=== PATIENT | female | born 1955 | race Caucasian/White ===

== ENCOUNTER → 2017-04-15 09:03 | Day surgery (SDC) | payer MEDICARE, MEDICAID, SELFPAY ==
[2017-04-01 13:04] VITALS: BP 173/69; BMI 33.0
[2017-04-12 10:33] VITALS: BMI 33.0
[2017-04-15 09:38] LABS: Absolute Lymphocyte Count 2.26 X10^3/ul (0.83-4.51); Absolute Neutrophil Count 4.6 X10^3/uL (2.0-7.7); Basophil# 0.06 X10^3/uL; Basophil% 0.8 % (0-1); Eosinophil# 0.22 X10^3/uL; Eosinophils% 2.9 % (0-5); Hematocrit 35.3 % (37-47); Hemoglobin 11.7 g/dl (12.0-15.0); Lymphocyte # 2.26 X10^3/ul (4.0); Lymphocyte % 29.7 % (19-41); Mean Corp Hgb Conc 33.1 g/gl (32-36); Mean Corpuscular Hgb 28.6 pg (27.0-32.0); Mean Corpuscular Volume 86.3 fL (81-99); Monocyte# 0.49 X10^3/uL; Monocyte% 6.4 % (0-10); Neutrophil # 4.56 X10^3/uL (2.7-7.7); Neutrophil % 59.9 % (47-70); Platelet Count 301 K/mm3 (150-450); RBC Distribution Width CV 15.7 % (11.6-14.6); Red Blood Count 4.09 M/mm3 (4.2-5.4); White Blood Count 7.6 K/mm3 (4.4-11.0)
[2017-04-15 09:45] LABS: POSITIVE COUNT NO; POSITIVE DIFFERENTIAL NO; POSITIVE MORPHOLOGY NO
[2017-04-15 10:07] LABS: Anion Gap 13 (5-15); BUN 77 mg/dL (7-18); Calcium,Total 8.8 mg/dL (8.5-10.1); Chloride 94 mmol/L (98-107); Creatinine, Serum 7.03 mg/dL (0.55-1.02); EST Glomerular Filtration Rate 6 mL/min (>60); Est Glom Filt Rate - Afr Amer 8 mL/min (>60); Estimated Creatinine Clearance 6.56 ml/min; Glucose 128 mg/dL (74-106); Potassium 5.1 mmol/L (3.5-5.1); Sodium Level 134 mmol/L (136-145)
--- NOTE | 2017-04-15 11:31 | PCM.OPRPT ---
Problem List (1) Problem with dialysis access Status: Acute Qualifiers: Encounter type: subsequent encounter Qualified Code(s): T82.898D - Other specified complication of vascular prosthetic devices, implants and grafts, subsequent encounter Report of Operation Date of Procedure: 04/15/17 Pre-Operative Diagnosis: Problem left left forearm radiocephalic hemodialysis dialysis access Post-Operative Diagnosis: High-grade proximal fistula venous stenosis adjacent to the arterial anastomosis at the wrist Surgery/Procedure Performed:: Upper extremity fistulogram with 5 x 2 conquest and 6 x 2 conquest and 5 x 60 mm Lutonix angioplasty with drug coated balloon therapy Description of Surgical Findings:: Amount and informed consent was obtained. 61-year-old female was taken to the special procedures lab placed on the table she received 50 mcg of fentanyl 1 mg of Versed after informed consent was obtained. Left upper extremity sterilely prepped draped. Ultrasound was used to identify the cephalic vein in the proximal forearm. Under ultrasound guidance 2% lidocaine was instilled. Micropuncture needle was inserted retrograde flow. Micropuncture wire inserted. 6 [place] procedure was inserted using 035 angled Glidewire and a gentle glide cath [place] was gained the radial artery proximal to the fistula. Using Isovue Triplett Gram stain of the left forearm and upper extremity. This demonstrated high-grade 80% venous stenosis just distal to the arterial anastomosis. So an 035 Magic wire was inserted through the glide cath initially 5 x 2 conquest balloon was placed and then a 6 x 2 conquest balloon and then I reinserted 5 x 2 conquest balloon. Angioplasty was repetitively form performed until I felt that I had the lesion in question dilated. Then because the patient had just been here for treatment January 2017 I elected to pursue drug-coated balloon therapy. A 5 x 60 mm Lutonix drug-coated balloon was placed. This was insufflated to 6 humaira of pressure and held for 2 minutes. That balloon was then removed and a 4 [place] glide cath was reinserted final Triplett Gram stain now demonstrated dramatic improvement in flow and resolution of the area of proximal venous stenosis. Balloons were removed catheters removed. Sheath was removed U suture of 4-0 nylon was placed. Patient had good pulsatile flow with a palpable thrill blood loss was minimal no apparent complication. Impression High-grade 80% venous stenosis in the proximal portion of the fistula close to the arterial anastomosis. Subsequent to angioplasty and drug-coated balloon therapy there is resolution of the venous stenosis with good forearm and distal upper arm outflow. Jose Painting M.D., F.A.C.S. Type of Anesthesia:: IV Sedation
== END ==
PROVIDERS: Physician Assistant; Family Provider Family Medicine; PCP Family Medicine; Visit Provider Surgery
DX: T82.49XA Other complication of vascular dialysis catheter, initial encounter (principal); I12.9 Hypertensive chronic kidney disease with stage 1 through stage 4 chronic kidney disease, or unspecified chronic kidney disease; N18.9 Chronic kidney disease, unspecified; E66.9 Obesity, unspecified; G47.33 Obstructive sleep apnea (adult) (pediatric); E78.5 Hyperlipidemia, unspecified; I25.10 Atherosclerotic heart disease of native coronary artery without angina pectoris; I73.9 Peripheral vascular disease, unspecified; D50.9 Iron deficiency anemia, unspecified; E11.40 Type 2 diabetes mellitus with diabetic neuropathy, unspecified; Z68.33 Body mass index [BMI] 33.0-33.9, adult; Z79.4 Long term (current) use of insulin; Z79.899 Other long term (current) drug therapy; Z99.2 Dependence on renal dialysis; Z95.5 Presence of coronary angioplasty implant and graft
CPT/HCPCS: 36415; 36902; 76937; 80048; 85025; 99152; 99153; C1725; Q9967; C1769; J3490

== ENCOUNTER → 2017-05-21 18:43 | Outpatient (CLI) | payer MEDICARE, MEDICAID, SELFPAY ==
[2017-05-21 21:34] LABS: M R Staph aureus DNA By PCR Negative (Negative); Probe Check PASS; Specimen Processing Control PASS
== END ==
PROVIDERS: Family Provider Family Medicine; PCP Family Medicine; Visit Provider Ophthalmology
DX: Z22.321 Carrier or suspected carrier of Methicillin susceptible Staphylococcus aureus (principal)
CPT/HCPCS: 87641

== ENCOUNTER → 2017-07-05 08:41 | Outpatient (CLI) | payer MEDICARE, MEDICAID, SELFPAY ==
[2017-07-05 10:26] LABS: Hematocrit 31.7 % (37-47); Hemoglobin 10.1 g/dl (12.0-15.0); Mean Corp Hgb Conc 31.9 g/gl (32-36); Mean Corpuscular Hgb 30.4 pg (27.0-32.0); Mean Corpuscular Volume 95.5 fL (81-99); Mean Platelet Vol. 8.3 fl (6.2-12.0); Platelet Count 341 K/mm3 (150-450); RBC Distribution Width SD 55.2 fl (35.1-43.9); Red Blood Count 3.32 M/mm3 (4.2-5.4); White Blood Count 7.6 K/mm3 (4.4-11.0)
[2017-07-05 10:28] LABS: Scan Indicated on CBC? Y/N NO
[2017-07-05 12:09] LABS: Anion Gap 10 (5-15); BUN 55 mg/dL (7-18); Calcium,Total 8.9 mg/dL (8.5-10.1); Chloride 98 mmol/L (98-107); Cholesterol 270 mg/dL (200); Creatinine, Serum 6.85 mg/dL (0.55-1.02); EST Glomerular Filtration Rate 7 mL/min (>60); Est Glom Filt Rate - Afr Amer 8 mL/min (>60); Glucose 94 mg/dL (74-106); High Density Lipoprotein 53 mg/dL; Potassium 4.8 mmol/L (3.5-5.1); Sodium Level 137 mmol/L (136-145); Triglycerides 140 mg/dL; Very Low Density Lipoprotein 28 mg/dL (5-40); Vitamin D,25 Hydroxy 25.5 ng/mL (29.95-100.01)
[2017-07-05 12:19] LABS: Hemoglobin A1c 6.4 % (4.2-6.3)
== END ==
PROVIDERS: Family Provider Family Medicine; PCP Family Medicine; Visit Provider Family Medicine
DX: I10 Essential (primary) hypertension (principal); E78.5 Hyperlipidemia, unspecified; E11.65 Type 2 diabetes mellitus with hyperglycemia; E55.9 Vitamin D deficiency, unspecified
CPT/HCPCS: 36415; 80048; 80061; 82306; 83036; 85027

== ENCOUNTER → 2017-10-18 10:05 | Outpatient (CLI) | payer MEDICARE, MEDICAID, SELFPAY ==
[2017-09-25 09:27] LABS: Hematocrit 33.4 % (37-47); Hemoglobin 10.2 g/dl (12.0-15.0); Mean Corp Hgb Conc 30.5 g/gl (32-36); Mean Corpuscular Hgb 29.7 pg (27.0-32.0); Mean Corpuscular Volume 97.1 fL (81-99); Mean Platelet Vol. 8.7 fl (6.2-12.0); Platelet Count 309 K/mm3 (150-450); RBC Distribution Width CV 17.8 % (11.6-14.6); RBC Distribution Width SD 61.6 fl (35.1-43.9); Red Blood Count 3.44 M/mm3 (4.2-5.4); Scan Indicated on CBC? Y/N NO; White Blood Count 6.5 K/mm3 (4.4-11.0)
[2017-09-25 09:41] LABS: Anion Gap 8 (5-15); BUN 64 mg/dL (7-18); BUN/Creat Ratio 7.1 RATIO (10-20); Calcium,Total 8.6 mg/dL (8.5-10.1); Chloride 101 mmol/L (98-107); Creatinine, Serum 9.04 mg/dL (0.55-1.02); EST Glomerular Filtration Rate 5 mL/min (>60); Est Glom Filt Rate - Afr Amer 6 mL/min (>60); Glucose 101 mg/dL (74-106); Potassium 5.6 mmol/L (3.5-5.1); Sodium Level 135 mmol/L (136-145)
[2017-09-25 10:04] VITALS: BP 165/69; PULSE 65; RESP 16; TEMP 36.2; O2SAT 96; BMI 39.3
== END ==
PROVIDERS: Family Provider Family Medicine; PCP Family Medicine; Visit Provider Surgery
DX: Z01.818 Encounter for other preprocedural examination (principal)
CPT/HCPCS: 80048; 85027; 93005

== ENCOUNTER 2018-02-28 17:25 | Emergency (ER) | payer MEDICARE, MEDICAID, SELFPAY ==
[2018-02-28 13:49] VITALS: BMI 33.0
[2018-02-28 17:27] VITALS: BP 167/92; PULSE 81; RESP 16; TEMP 36.6; O2SAT 93; BMI 38.4
[2018-02-28 17:46] VITALS: BP 174/70; PULSE 81; RESP 18; TEMP 36.4; O2SAT 96
--- NOTE | 2018-02-28 17:59 | EKG12_ITS ---
Test Reason : WEAKNESS Blood Pressure : / mmHG Vent. Rate : 077 BPM Atrial Rate : 077 BPM P-R Int : 174 ms QRS Dur : 090 ms QT Int : 402 ms P-R-T Axes : 058 054 180 degrees QTc Int : 454 ms Normal sinus rhythm Septal infarct , age undetermined ST & T wave abnormality, consider inferolateral ischemia Abnormal ECG Confirmed by ABBY MOORE, EDIS ([id number]), index editor RAMON WHELAN ([id number]) on 03/04/2018 8:50:20 AM Referred By: Maribel Webb Confirmed By:EDIS MORA MD
--- NOTE | 2018-02-28 18:02 | ED.DCSUM_ITS ---
- ER Visit Summary Date of Service: 02/28/18 Chief Complaint: Generalized weakness History of Present Illness: The patient is a 62 F 3 of end-stage renal disease dialysis. CAD, [place] with prior triple bypass. Insulin dependent diabetes and hypertension. He states she just has not felt well for last 2 weeks and has missed 5 of her last 6 dialysis treatments. Did get dialyzed today. Believes is a full run. She had an elevated potassium and the development coordinator was concerned that she may have a bacterial respiratory infection or some the need to be treated with antibiotics and wanted to be seen in the ER. She has had a cough is been nonproductive. Chills without a fever. Generally weak. She denies any dysuria. She still does make urine. Denies being cloudy or bloody. She denies any abdominal pain. No melena. Physical Examination: Well-appearing female. No acute distress. Vital signs are stable. Initial blood pressure 167/92. Pulse ox 90% on room air no signs of hypoxia. She does not look septic or toxic. She is in no distress. HEENT exam mild dry mucous membranes. Posterior pharynx unremarkable. Neck nontender no lymphadenopathy. Lungs dry cough but no rales, rhonchi or wheezing. Equal symmetrical. Heart regular rhythm rate about 80 no murmur. Chest nontender. Abdomen soft nontender. Normal bowel sounds no peritoneal signs. Patient moving all 4 extremities. Is a partial reputation of her right foot. Neurologically she is awake alert with no focal motor deficits. She is answering questions and following commands. Test Results: Two-view chest x-ray shows shows no acute abnormality read both by myself and the radiologist. She has had a prior sternotomy. CBC shows white count of 5. Hemoglobin 9.8 which is her baseline around 10. Electrolytes unremarkable potassium 3.5 earlier today was 6.1 prior to dialysis. Gap is 16. Creatinine 7.4 which is her baseline with known chronic renal disease Emergency Department Course and Treatment: Treated with half a liter normal saline due to clinical dehydration. At 1950 patient is doing well on repeat exam.. Comfortable being discharged home. We will follow-up with her dialysis on Saturday. Treatment Plan: Up with your doctor. Return if worse. Disposition: dc Impression: Acute cough secondary to viral URI Acute generalized weakness Acute hyperkalemia resolved post dialysis treatment today History of chronic end-stage renal disease and dialysis. History of CAD with prior triple bypass This note was generated with [employer] dictation software. It may contain incorrect words, spelling, and punctuation that were not noted in review of the chart prior to signing ED Disposition - Plan for ED Patient: Chief Complaint: Weakness Referrals: Dandre Casas MD [Primary Care Provider] -
--- NOTE | 2018-02-28 18:22 | RAD_ITS ---
STUDY: X-RAY CHEST REASON FOR EXAM: Female, 62 years old. Dialysis patient. Weakness. Diarrhea. TECHNIQUE: Single AP portable view of the chest. COMPARISON: 12/17/2016. FINDINGS: Moderate lung volumes. No significant congestion, edema, infiltrates or effusions. Sternal cerclage wires and vascular clips are present from a prior sternotomy and coronary artery bypass graft procedure (CABG). Mild cardiomegaly. Normal mediastinum and haley. Normal visualized pulmonary arteries. Normal visualized aortic arch and descending thoracic aorta. Normal visualized thoracic spine. Normal visualized ribs, clavicles, and shoulders. There is no demonstrated abnormality of the visualized soft tissue structures of the upper abdomen. RAD/Chest PA and Lateral IMPRESSION: No significant acute chest disease. Electronically Signed: Vasiliy Smiley MD at 18:48 EST , Service support ,
[2018-02-28 18:28] VITALS: TEMP 36.4
[2018-02-28 18:34] VITALS: BP 170/66; PULSE 77; RESP 17; TEMP 36.4; O2SAT 94
[2018-02-28 18:36] LABS: Absolute Lymphocyte Count 1.17 X10^3/ul (0.83-4.51); Absolute Neutrophil Count 3.7 X10^3/uL (2.0-7.7); Basophil# 0.01 X10^3/uL; Basophil% 0.2 % (0-1); Eosinophil# 0.06 X10^3/uL; Eosinophils% 1.1 % (0-5); Hematocrit 30.1 % (37-47); Hemoglobin 9.8 g/dl (12.0-15.0); Lymphocyte # 1.17 X10^3/ul (4.0); Lymphocyte % 21.4 % (19-41); Mean Corp Hgb Conc 32.6 g/gl (32-36); Mean Platelet Vol. 8.6 fl (6.2-12.0); Monocyte# 0.49 X10^3/uL; Neutrophil # 3.69 X10^3/uL (2.7-7.7); Neutrophil % 67.6 % (47-70); Platelet Count 233 K/mm3 (150-450); RBC Distribution Width CV 15.5 % (11.6-14.6); RBC Distribution Width SD 52.5 fl (35.1-43.9); Red Blood Count 3.27 M/mm3 (4.2-5.4); White Blood Count 5.5 K/mm3 (4.4-11.0)
[2018-02-28 18:37] LABS: Anion Gap 16 (5-15); BUN 58 mg/dL (7-18); BUN/Creat Ratio 7.8 RATIO (10-20); Calcium,Total 7.5 mg/dL (8.5-10.1); Chloride 99 mmol/L (98-107); EST Glomerular Filtration Rate 6 mL/min (>60); Est Glom Filt Rate - Afr Amer 7 mL/min (>60); Estimated Creatinine Clearance 6.14 ml/min; Glucose 105 mg/dL (74-106); Potassium 3.5 mmol/L (3.5-5.1); Sodium Level 138 mmol/L (136-145)
[2018-02-28 18:39] LABS: Creatinine, Serum 7.42 mg/dL (0.55-1.02); POSITIVE COUNT NO; POSITIVE DIFFERENTIAL NO; POSITIVE MORPHOLOGY NO
--- NOTE | 2018-02-28 18:40 | ED.RN ---
lab called with critical lab results. Creatine 7.43. Dr. Whittington made aware. no new orders at this time
--- NOTE | 2018-02-28 20:02 | ED.DEP ---
ED Disposition - Plan for ED Patient: Disposition: Home or Assisted Living Chief Complaint: Weakness Instructions: ED Weakness [facility] Referrals: Dandre Casas MD [Primary Care Provider] - 3-5 Days if not improving Additional Instructions: Your labs today are your baseline. Your potassium is now 3.5 prior to dialysis today it was 6.1. Follow-up with your doctor as needed next week. Return if feeling worse.
[2018-02-28 20:07] VITALS: BP 165/69; PULSE 76; RESP 18; O2SAT 97
== END 2018-02-28 20:09 | disposition home or self-care (01) ==
PROVIDERS: Emergency Provider Emergency Medicine; Family Provider Family Medicine; PCP Family Medicine
DX: J06.9 Acute upper respiratory infection, unspecified (principal); R53.1 Weakness; E87.5 Hyperkalemia; R05 Cough; I25.10 Atherosclerotic heart disease of native coronary artery without angina pectoris; I12.0 Hypertensive chronic kidney disease with stage 5 chronic kidney disease or end stage renal disease; E11.22 Type 2 diabetes mellitus with diabetic chronic kidney disease; N18.6 End stage renal disease; Z99.2 Dependence on renal dialysis; I25.2 Old myocardial infarction; Z95.1 Presence of aortocoronary bypass graft; Z79.4 Long term (current) use of insulin; Z79.899 Other long term (current) drug therapy
CPT/HCPCS: 71046; 80048; 85025; 93005; 96360; 96361; 99284; J7040; A4216

== ENCOUNTER → 2018-03-10 14:31 | Outpatient (CLI) | payer MEDICARE, MEDICAID, SELFPAY ==
[2018-02-28 17:27] VITALS: BMI 38.4
== END ==
PROVIDERS: Family Provider Family Medicine; PCP Family Medicine; Referring Provider Internal Medicine Nephrology; Visit Provider Internal Medicine Nephrology
DX: R19.7 Diarrhea, unspecified (principal)
CPT/HCPCS: 87493

== ENCOUNTER → 2018-04-10 14:08 | Outpatient (CLI) | payer MEDICARE, MEDICAID, SELFPAY ==
--- NOTE | 2018-04-10 14:13 | CT_ITS ---
STUDY: CT RIGHT KNEE WITHOUT CONTRAST REASON FOR EXAM: Female, 62 years old. Fibular fracture. RADIATION DOSAGE (If Supplied By Facility): CTDIvol = ( ) mGy, DLP = ( ) mGycm TECHNIQUE: Transaxial CT imaging of the knee was performed. Coronal and sagittal images were reformatted. Individualized dose optimization techniques were used for this CT. COMPARISON: None. FINDINGS: Early cortical spurring as well as mild subarticular sclerosis of the medial femoral condyle and medial tibial plateau. There is moderate narrowing of the articular joint space of the medial knee compartment. Borderline cortical spurring of the lateral femoral condyle are normal lateral tibial plateau. There is preservation of the articular joint space of the lateral knee compartment. There is comminuted oblique fracture at the neck of the fibula with minimal anteromedial displacement and mild anteromedial angulation of the distal fracture fragment. Stable proximal tibiofibular articulation. There is mild cortical spurring at the patellar insertions of the quadriceps and patellar tendons, as well as early lateral periarticular spurring. There is a small joint effusion. 4 x 2 x 1.4 cm fluid density in the popliteal fossa consistent with a Leon's cyst. The quadriceps tendon is grossly normal. The patellar tendon is grossly normal. Normal Hoffa's fat pad. Atherosclerotic vascular calcifications are present. There is soft tissue stranding/swelling in the lateral subcutaneous soft tissues of the calf and visualized mid lower leg, extending anteriorly and posteriorly. A cluster of small calcifications are also seen in the anterior subcutaneous tissues at the mid lower leg CT/Extremity Lower without Contra IMPRESSION: 1. Minimally displaced and angulated comminuted fracture of the neck of the right fibula, as described. There is subcutaneous soft tissue stranding/edema of the calf/mid lower leg. 2. Degenerative changes of the knee, as noted, with narrowing most prominent in the medial femorotibial compartment. 3. Small joint effusion present. A Leon's cyst is also seen in the popliteal fossa. 4. Atherosclerotic vascular calcifications present. Electronically Signed: Andre Sexton MD at 19:13 EST , Service support ,
== END ==
PROVIDERS: Family Provider Family Medicine; PCP Family Medicine; Referring Provider Orthopaedic Surgery; Visit Provider Orthopaedic Surgery
DX: S82.831A Other fracture of upper and lower end of right fibula, initial encounter for closed fracture (principal)
CPT/HCPCS: 73700

== ENCOUNTER → 2018-05-26 07:49 | Outpatient (CLI) | payer MEDICARE, MEDICAID, SELFPAY ==
[2018-05-26 08:07] LABS: Potassium 5.8 mmol/L (3.5-5.1)
== END ==
PROVIDERS: Family Provider Family Medicine; PCP Family Medicine; Referring Provider Internal Medicine Nephrology; Visit Provider Internal Medicine Nephrology
DX: E87.5 Hyperkalemia (principal)
CPT/HCPCS: 84132

== ENCOUNTER → 2018-09-04 | Outpatient (CLI) | payer MEDICARE, MEDICAID, SELFPAY ==
[2018-09-04 14:35] LABS: Cholesterol 258 mg/dL (200); Glucose 67 mg/dL (74-106); High Density Lipoprotein 43 mg/dL; Triglycerides 125 mg/dL; Very Low Density Lipoprotein 25 mg/dL (5-40)
== END | disposition home or self-care (01) ==
LOC: MFPLAB 11:57
PROVIDERS: Family Provider Family Medicine; PCP Family Medicine; Visit Provider Family Medicine
DX: E78.5 Hyperlipidemia, unspecified (principal); E11.9 Type 2 diabetes mellitus without complications
CPT/HCPCS: 36415; 80061; 82947; 83036

== ENCOUNTER → 2018-12-12 | Outpatient (CLI) | payer SELFPAY | END | disposition home or self-care (01) | LOC: MTLAB 12:14 | PROVIDERS: Family Provider Family Medicine; PCP Family Medicine; Referring Provider Internal Medicine Nephrology; Visit Provider Internal Medicine Nephrology | DX: T82.898A Other specified complication of vascular prosthetic devices, implants and grafts, initial encounter (principal) | CPT/HCPCS: 87077; 87081 ==

== ENCOUNTER 2019-03-26 09:00 | Outpatient (RCR) | payer MEDICARE, MEDICAID, SELFPAY ==
[2019-03-19 13:39] VITALS: BP 158/56; PULSE 79; RESP 18; TEMP 36.8; BMI 38.4
--- NOTE | 2019-03-19 14:25 | WC ---
pt has several scabbed areas on bilat lower legs noted. 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
--- NOTE | 2019-03-19 14:57 | PCM.WC.HP ---
(1) Diabetic foot ulcer associated with type 2 diabetes mellitus Status: Acute Current Visit: Yes Qualifiers: Diabetic foot ulcer location: midfoot Laterality: left Non-pressure ulcer stage: with other severity Qualified Code(s): E11.621 - Type 2 diabetes mellitus with foot ulcer; L97.428 - Non-pressure chronic ulcer of left heel and midfoot with other specified severity Code(s): E11.621 - Type 2 diabetes mellitus with foot ulcer; L97.509 - Non-pressure chronic ulcer of other part of unspecified foot with unspecified severity Comment: x 2 inferior and superior plantar surface, unstageable d/t eschar (2) CAD (coronary artery disease) Status: Chronic Current Visit: No Code(s): I25.10 - Atherosclerotic heart disease of [place] coronary artery without angina pectoris (3) Diabetes mellitus, type II Status: Chronic Current Visit: Yes Code(s): E11.9 - Type 2 diabetes mellitus without complications Comment: uncontrolled (4) Diabetic neuropathy Status: Chronic Current Visit: Yes Code(s): E11.40 - Type 2 diabetes mellitus with diabetic neuropathy, unspecified (5) Hyperlipidemia Status: Chronic Current Visit: No Code(s): E78.5 - Hyperlipidemia, unspecified (6) Hypertension Status: Chronic Current Visit: Yes Code(s): I10 - Essential (primary) hypertension (7) Iron deficiency Status: Chronic Current Visit: Yes Code(s): E61.1 - Iron deficiency (8) Non-healing wound Status: Chronic Current Visit: Yes Code(s): KCV1069 - (9) NGUYEN (obstructive sleep apnea) Status: Chronic Current Visit: No Code(s): G47.33 - Obstructive sleep apnea (adult) (pediatric) (10) Obesity (BMI 30.0-34.9) Status: Chronic Current Visit: No Code(s): E66.9 - Obesity, unspecified (11) PVD (peripheral vascular disease) Status: Chronic Current Visit: Yes Code(s): I73.9 - Peripheral vascular disease, unspecified (12) S/P CABG x 3 Status: Chronic Current Visit: No Code(s): Z95.1 - Presence of aortocoronary bypass graft Comment: June of 2014 (13) Status post transmetatarsal amputation of right foot Status: Chronic Current Visit: No Code(s): Z89.431 - Acquired absence of right foot (14) Stented coronary artery Status: Chronic Current Visit: No (15) Malnutrition Status: Acute Current Visit: Yes Code(s): E46 - Unspecified protein-calorie malnutrition History of Present Illness Date of Service: 03/19/19 Chief Complaint: 63-year-old white female here for diabetic ulcers to left foot x1 month. History of Wound: This is a 63-year-old white female who presents to the wound healing center today with complaint of nonhealing diabetic foot ulcers on her left plantar surface for the past month or so. She has a past medical history significant for end-stage CKD on dialysis 3 times a week, uncontrolled type 2 diabetes mellitus with long-term insulin use, obesity, PVD, hypertension, hyperlipidemia, malnutrition, and history of amputation of the right transmetatarsal. The patient states that the nurse at the dialysis center evaluated her due to complaints of foot pain and had her follow-up with her primary care. She states that her primary care provider then started her on Levaquin and sent her to the wound healing center for evaluation. She does state that she has neuropathy and does not have the best sensation to her feet, however she states that there has been an increase in pain. She has not been utilizing any sort of dressing changes. She states that she thinks the wound has been present for at least a month. She states that she does not often wear shoes and sometimes just wear socks, even when going outside of her house. She did not wear shoes to [facility] office visit. Denies any offloading measures or the use of diabetic shoes. Does state that she recently took a part-time job working at [employer] where she is not allowed to wear any offloading shoes. States that she typically only eats 1 meal per day due to not being able to afford any further meals. Denies any systemic signs of infection such as fever, chills, nausea, vomiting, fatigue, or purulent drainage from the site. Does state that she has an out-of-town [employer] application consultant who has not evaluated her in over 6 months. Denies any other concerns at this time. All other systems reviewed and negative with exception of those listed above. Past Medical History Past Medical History: Chronic Problems (Last Updated 09/04/17 @ 08:58 by Vicki Turner) Obesity (BMI 30.0-34.9) (Chronic) NGUYEN (obstructive sleep apnea) (Chronic) Diabetes mellitus, type II (Chronic) uncontrolled Hyperlipidemia (Chronic) Hypertension (Chronic) Stented coronary artery (Chronic) Diabetic neuropathy (Chronic) CAD (coronary artery disease) (Chronic) PVD (peripheral vascular disease) (Chronic) Non-healing wound (Chronic) Iron deficiency (Chronic) S/P CABG x 3 (Chronic) June of 2014 Status post transmetatarsal amputation of right foot (Chronic) Surgical History: coronary bypass surgery, tonsillectomy, - Allergies/Adverse Reactions: Allergies iodine Allergy (Unknown, Verified 02/28/18 17:29) Unknown latex Allergy (Verified 02/28/18 17:29) Unknown Penicillins Allergy (Verified 02/28/18 17:29) Unknown shellfish derived Allergy (Verified 02/28/18 17:29) Unknown Home Medications: Ambulatory Orders Medication Instructions Recorded Insulin Detemir [Levemir FlexPen] 26 units SC DAILY 09/25/13 Amlodipine [Norvasc] 10 mg PO DAILY 09/05/14 Calcitriol [Rocaltrol] 0.25 mcg PO BID 11/20/16 Cilostazol [Pletal] 100 mg PO BIDAC 11/20/16 Escitalopram Oxalate [Lexapro] 10 mg PO DAILY 11/20/16 Furosemide [Lasix] 40 mg PO BID 11/20/16 Iron Polysaccharide Complex 150 mg PO DAILYCM 11/20/16 [Ferrex 150] B complex with C 20-folic acid 1 1 cap PO MOWEFR 02/27/17 mg capsule gabapentin 300 mg capsule 300 mg PO BID cap 02/27/17 losartan 100 mg tablet 100 mg PO QDAY 02/27/17 Levofloxacin 500 mg PO QODAY 03/19/19 - Family History Maternal Stroke Paternal No pertinent history Smoking Status: Never smoker Review of Systems Constitutional: Denies: Chills, Fever, Weight Change Eyes: Denies: Pain, Vision Change HEENT: Denies: Difficulty Hearing, Difficulty Swallowing, Sinus Congestion Cardiovascular: Denies: Chest Pain, Palpitations Respiratory: Denies: Cough, Shortness of Breath Gastrointestinal: Denies: Diarrhea, Nausea, Vomiting Genitourinary: Denies: Dysuria, Hematuria Skin: Reports: Wounds - see HPI Endocrine: Denies: Heat/ Cold Intolerance, Polydipsia, Polyuria Hematologic/ Lymphatic: Denies: Easy Bruising, Easy Bleeding - Physical Exam Vital Signs Temp Pulse Resp BP 98.2 F 79 18 158/56 H 03/19/19 13:39 03/19/19 13:39 03/19/19 13:39 03/19/19 13:39 General: Alert, Oriented x3, Cooperative, No apparent distress HEENT: Atraumatic Oral: Moist Mucosa Neck: Supple, No JVD Lungs: Clear to auscultation, Normal air movement, No rhonchi, No wheeze, No rales Cardiovascular: Regular rate, Regular Rhythm, Normal S1, Normal S2, No murmurs Abdomen: Soft, Non Tender, Obese Extremities: No clubbing, No cyanosis, Diminished Peripheral Pulses - Palpable dorsal pedis pulses, diminished bilaterally, Edema - +1 bilateral lower extremity edema, - - Chronic venous changes present bilateral lower extremities with multiple excoriations in various stages of healing, right partial foot amputation and left toe amputations Skin: Ulcer/ Wound - Diabetic foot ulcer to the plantar midfoot superior and inferior ulcerations with large amount of eschar, surrounding edges do show granular tissue, sites are tender and painful Wound Measurements and Assessment WC - Nurse 1 - General Ulcer Measurement Start: 03/19/19 13:37 Freq: Status: Active Protocol: Activity Type Activity Date Activity User E-Sign Co-Sign Detail Recorded Client Recorded Date Recorded By Document 03/19/19 13:39 RB [id number] 03/19/19 14:00 RB 03/19/19 13:39 Wound Center Nurse 1 [Ulcer Assessment] 4. L plantar foot inferior -Combined with other wound No -Current Size (cm) - Length 0.7 -Current Size (cm) - Width 1.8 -Current Size (cm) - Depth 0.4 -Total Square Cm 1.26 -Tunneling No -Undermining/Tunneling No -Circular Undermining No -Exudate Amt Small -Exudate Type Serosanguineous -Wound Margin Thickened -Granulation Amt Small (1-33%) -Granulation Quality Pale,[place] -Slough/Fibrin Yes -Necrosis Amt Medium (34-66%) -Necrotic Tissue Type Adherent Slough -Structure Exposed N/A -Texture (Georgina-wound Skin Appearance) Callus -Moisture (Georgina-wound Skin Appearance Assessed ) -Color (Georgina-wound Skin Appearance) Assessed -Temperature (Georgina-wound Skin No Abnormality Appearance) (Pt Warm) -Tenderness on Palpation (Georgina-wound No Skin Appearance) -Ulcer Cleansing Wound Cleanser -Foul Odor after Cleansing No -Anesthetic Used 5% Lidocaine Gel 3. L plantar foot superior -Combined with other wound No -Current Size (cm) - Length 1.3 -Current Size (cm) - Width 1.4 -Current Size (cm) - Depth 0.2 -Total Square Cm 1.82 -Photo Taken Yes -Tunneling No -Undermining/Tunneling No -Circular Undermining No -Exudate Amt Medium -Exudate Type Serosanguineous -Wound Margin Thickened -Granulation Amt None Present (0 %) -Slough/Fibrin Yes -Necrosis Amt Large (67-100%) -Necrotic Tissue Type Eschar -Structure Exposed N/A -Texture (Georgina-wound Skin Appearance) Callus -Moisture (Georgina-wound Skin Appearance Dry/Scaly ) -Color (Georgina-wound Skin Appearance) Assessed -Temperature (Georgina-wound Skin No Abnormality Appearance) (Pt Warm) -Tenderness on Palpation (Georgina-wound No Skin Appearance) -Ulcer Cleansing Wound Cleanser -Foul Odor after Cleansing No -Anesthetic Used 5% Lidocaine Gel [Edema Assessment] -Lower Limb Edema Present Yes -Right Calf (cm) 40.5 -Right Ankle (cm) 28 -Left Calf (cm) 42 -Left Ankle (cm) 29 WC - Nurse 2 - General Ulcer CM Notes Start: 03/19/19 13:37 Freq: Status: Active Protocol: Activity Type Activity Date Activity User E-Sign Co-Sign Detail Recorded Client Recorded Date Recorded By Document 03/19/19 14:14 MW [id number] 03/19/19 14:32 MW 03/19/19 14:14 Wound Center Nurse 2 [Procedure/Treatment] 4. L plantar foot inferior -Time 14:17 -Correct Patient Yes -Correct Side, Site, Position Yes -Correct Procedure Yes -Procedure Performed Yes -Type of Procedure Debridement -Clinical Debridement Subcutaneous -Post Debridement Size (cm) - Length 1.0 -Post Debridement Size (cm) - Width 2.5 -Post Debridement Size (cm) - Depth 0.3 -Total Square Cm 2.50 -Wound/Ulcer Outcome Not Healed -Ulcer Cleansing Rinsed/ Irrigated with Saline -Foul Odor after Cleansing No -Bioengineered Tissue No -Bleeding Controlled with Pressure -Offloading No -Treatment Response Procedure Tolerated Well 3. L plantar foot superior -Time 14:17 -Correct Patient Yes -Correct Side, Site, Position Yes -Correct Procedure Yes -Procedure Performed Yes -Type of Procedure Debridement -Clinical Debridement Subcutaneous -Post Debridement Size (cm) - Length 1.6 -Post Debridement Size (cm) - Width 2.0 -Post Debridement Size (cm) - Depth 0.2 -Total Square Cm 3.20 -Wound/Ulcer Outcome Not Healed -Ulcer Cleansing Rinsed/ Irrigated with Saline -Foul Odor after Cleansing No -Bioengineered Tissue No -Bleeding Controlled with Pressure -Offloading No -Treatment Response Procedure Tolerated Well [See Physician Procedure note for Specifics] Pain Scale: 0-10 Numeric [Pain] -Is Patient Pain Free? Yes Musculoskeletal: No Muscle Wasting Neurological: Neuro grossly intact Psych/Mental Status: Normal Affect, Appropriate, Alert and oriented to time, place, person, mood and affect Debridement Note Post-Debridement Measurements/Treatment WC - Nurse 2 - General Ulcer CM Notes Start: 03/19/19 13:37 Freq: Status: Active Protocol: Activity Type Activity Date Activity User E-Sign Co-Sign Detail Recorded Client Recorded Date Recorded By Document 03/19/19 14:14 MW [id number] 03/19/19 14:32 MW 03/19/19 14:14 Wound Center Nurse 2 4. L plantar foot inferior -Time 14:17 -Correct Patient Yes -Correct Side, Site, Position Yes -Correct Procedure Yes -Procedure Performed Yes -Type of Procedure Debridement -Clinical Debridement Subcutaneous -Post Debridement Size (cm) - Length 1.0 -Post Debridement Size (cm) - Width 2.5 -Post Debridement Size (cm) - Depth 0.3 -Total Square Cm 2.50 -Wound/Ulcer Outcome Not Healed -Ulcer Cleansing Rinsed/ Irrigated with Saline -Foul Odor after Cleansing No -Bioengineered Tissue No -Bleeding Controlled with Pressure -Offloading No -Treatment Response Procedure Tolerated Well 3. L plantar foot superior -Time 14:17 -Correct Patient Yes -Correct Side, Site, Position Yes -Correct Procedure Yes -Procedure Performed Yes -Type of Procedure Debridement -Clinical Debridement Subcutaneous -Post Debridement Size (cm) - Length 1.6 -Post Debridement Size (cm) - Width 2.0 -Post Debridement Size (cm) - Depth 0.2 -Total Square Cm 3.20 -Wound/Ulcer Outcome Not Healed -Ulcer Cleansing Rinsed/ Irrigated with Saline -Foul Odor after Cleansing No -Bioengineered Tissue No -Bleeding Controlled with Pressure -Offloading No -Treatment Response Procedure Tolerated Well Pain Scale: 0-10 Numeric Is Patient Pain Free? Yes Wound debrided: Left superior and inferior diabetic foot ulcer Laterality: Left Type of Debridement: Excisional debridement Anesthesia Used: 5% Lidocaine Gel Depth: in the subcutaneous layer Percentage of wound debrided: 100 Instrument Used: 5mm curette Tissue Removed: slough and devitalized tissue Severity: Fat Layer Exposed Amount of bleeding with debridement: Mild Bleeding Controlled with: Pressure Patient tolerated procedure well Assessment/Plan Active Problems (Last Reviewed 09/04/17 @ 08:57 by Vicki Turner) Diabetic foot ulcer associated with type 2 diabetes mellitus (Acute) x 2 inferior and superior plantar surface, unstageable d/t eschar Malnutrition (Acute) Diabetes mellitus, type II (Chronic) uncontrolled Hypertension (Chronic) Diabetic neuropathy (Chronic) PVD (peripheral vascular disease) (Chronic) Non-healing wound (Chronic) Iron deficiency (Chronic) Assessment: See above diagnoses Plan: The patient was seen and examined at the wound center today and was updated on the plan of care. A subcutaneous debridement was performed today. The patient tolerated the procedure well. The patients wound care will consist of: Application of Santyl covered with gauze and postop shoe for offloading. Single layer Tubigrip's. X-ray ordered today to rule out injury to further tissue. Wound cultures were collected. Baseline bloodwork ordered. Vascular studies ordered. Glucerna ordered 3 times a day. Patient educated on the importance of diet on wound healing and instructed to increase protein and vitamin C intake. Patient verbalized understanding. Patient will follow up at wound healing center in one week or sooner if needed. Given the patient's current wounds and prior history, care will be transferred to [employer] application consultant Dr. Sylvester. Did personally discuss the case with oracle application consultant. Instructed patient on the importance of offloading and that if she is noncompliant, there is a risk for amputation, infection, or . Did instruct patient that she should not be standing on her feet for long periods of time. Patient has been advised to elevate lower extremities as much as possible. Elevation is to be implemented during daytime hours and legs are to be elevated to heart level, or higher, as much as possible. Prolonged idle sitting has been discouraged. Activity and ambulation has been encouraged. This note was generated with [employer] software. It may contain incorrect words, spelling, and punctuation that were not noted in checking the note before signing. Code Visit Office Visits / Consults: [id number] OV L4 Est [id number]: [id number] Nataliia subq tissue 20 sq cm/<
[2019-03-19 17:13] LABS: Absolute Lymphocyte Count 1.88 X10^3/uL (0.83-4.51); Absolute Neutrophil Count 3.9 X10^3/uL (2.0-7.7); Basophil# 0.04 X10^3/uL; Basophil% 0.6 % (0-1); Eosinophil# 0.11 X10^3/uL; Eosinophils% 1.6 % (0-5); Hematocrit 34.5 % (37-47); Hemoglobin 10.8 g/dL (12.0-15.0); Lymphocyte # 1.88 X10^3/ul (4.0); Lymphocyte % 28.1 % (19-41); Mean Corp Hgb Conc 31.3 g/dL (32-36); Mean Corpuscular Hgb 29.6 pg (27.0-32.0); Mean Corpuscular Volume 94.5 fL (81-99); Mean Platelet Vol. 9.2 fl (6.2-12.0); Monocyte# 0.69 X10^3/uL; Monocyte% 10.3 % (0-10); NRBC Flagged by Analyzer 0 % (0-5); Neutrophil # 3.92 X10^3/uL (2.7-7.7); Neutrophil % 58.5 % (47-70); Platelet Count 260 K/mm3 (150-450); RBC Distribution Width CV 16.9 % (11.6-14.6); RBC Distribution Width SD 58.9 fl (35.1-43.9); Red Blood Count 3.65 M/mm3 (4.2-5.4); White Blood Count 6.7 K/mm3 (4.4-11.0)
[2019-03-19 17:29] LABS: Erythrocyte Sedimentation Rate 116 mm/hr (0-30)
--- NOTE | 2019-03-19 17:40 | RAD_ITS ---
STUDY: X-RAY - LEFT FOOT CLINICAL: Female, 63 years old. left foot pain with ulcers TECHNIQUE: 3 view(s) of the foot. COMPARISON: None. FINDINGS: There is demineralization of the rear and midfoot bones. Normal visualized subtalar, talonavicular, calcaneocuboid, tarsal and tarsometatarsal articulations. There is demineralization of the metatarsi. There is degenerative arthrosis of the metatarsophalangeal joint of the hallux . Normal tibial and fibular sesamoid bones. Degenerative change and distal amputation of the great toe phalanx is noted. Second distal digit is amputated demineralized appearance of the second metatarsal head. Severe degenerative changes of the third and fifth digit are present with diffuse demineralization. Distal ankle and surrounding foot soft tissue edema is noted. RAD/Foot min 3 Views IMPRESSION: Diffuse demineralization and degenerative changes/amputation as above with diffuse distal foot soft tissue swelling. If high clinical suspicion of osteomyelitis recommend MRI imaging for definitive assessment. Electronically Signed: Ford Rahman DO at 9:18 EST , Service support ,
[2019-03-19 17:47] LABS: Hemoglobin A1c 6.8 % (4.2-6.3)
[2019-03-19 17:58] LABS: ALB/GLOB Ratio 0.7 RATIO (0.9-2.4); AST(SGOT) 28 U/L (15-37); Alanine Aminotransfer ALT/SGPT 24 U/L (13-56); Albumin, Serum 3.4 g/dL (3.2-5.0); Alkaline Phosphatase 113 U/L (45-117); Anion Gap 10 (5-15); BUN 45 mg/dL (7-18); BUN/Creat Ratio 7.4 RATIO (10-20); Calcium,Total 8.6 mg/dL (8.5-10.1); Chloride 93 mmol/L (98-107); Creatinine, Serum 6.06 mg/dL (0.55-1.02); EST Glomerular Filtration Rate 7 mL/min (>60); Est Glom Filt Rate - Afr Amer 9 mL/min (>60); Globulin 4.9 g/dL (2.2-4.2); Glucose 149 mg/dL (74-106); Potassium 4.4 mmol/L (3.5-5.1); Prealbumin 23.8 mg/dL (20.0-40.0); Protein, Total 8.3 g/dL (6.4-8.2); Sodium Level 136 mmol/L (136-145)
[2019-03-25 14:22] VITALS: BP 165/72; PULSE 79; RESP 18; TEMP 36.6; BMI 38.4
--- NOTE | 2019-03-25 14:30 | WC ---
dorsal foot w/ ^ redness. will update piano case and bench assembler and dr velasco.
--- NOTE | 2019-03-25 14:58 | PN.PCM_ITS ---
(1) Chronic ulcer of left foot with fat layer exposed Status: Chronic Code(s): L97.522 - Non-pressure chronic ulcer of other part of left foot with fat layer exposed (2) Type 2 diabetes mellitus with diabetic polyneuropathy Status: Chronic Code(s): E11.42 - Type 2 diabetes mellitus with diabetic polyneuropathy (3) Infection of left foot Status: Chronic Code(s): L08.9 - Local infection of the skin and subcutaneous tissue, unspecified (4) Other specified peripheral vascular diseases Status: Suspected Code(s): I73.89 - Other specified peripheral vascular diseases (5) Delayed wound healing Status: Chronic Code(s): T14.8XXD - Other injury of unspecified body region, subsequent encounter (6) Xerosis cutis Status: Chronic Code(s): L85.3 - Xerosis cutis (7) Walking difficulty due to ankle and foot Status: Chronic Code(s): R26.2 - Difficulty in walking, not elsewhere classified (8) Malnutrition Status: Chronic Code(s): E46 - Unspecified protein-calorie malnutrition (9) Obesity (BMI 30.0-34.9) Status: Chronic Code(s): E66.9 - Obesity, unspecified (10) Status post transmetatarsal amputation of right foot Status: Chronic Code(s): Z89.431 - Acquired absence of right foot (11) Localized edema Status: Chronic Code(s): R60.0 - Localized edema (12) Hammertoe of left foot Status: Chronic Code(s): M20.42 - Other hammer toe(s) (acquired), left foot Type of Wound Date of Service: 03/25/19 Chief Complaint: Left foot ulcer History of Wound: This is a 63-year-old white female who presents to the wound healing center today with complaint of nonhealing diabetic foot ulcers on her left plantar surface for over 1 month. She has a past medical history significant for end-stage CKD on dialysis 3 times a week, uncontrolled type 2 diabetes mellitus with long-term insulin use, obesity, PVD, hypertension, hyperlipidemia, malnutrition, and history of amputation of the right transmetatarsal. She has recently been on a course of Levaquin by her primary care physician. She was then further referred to the wound healing center. She does state that she has neuropathy and does not have the best sensation to her feet, however she states that there has been an increase in pain. She reports she is no longer working at [employer]. She admits she walks around [facility] only with padded socks in place he has these feel the most comfortable. Her pain is 4 out of 10. Progress of Wound: Stable - Physical Exam Vital Signs Temp Pulse Resp BP 97.8 F 79 18 165/72 H 03/25/19 14:22 03/25/19 14:22 03/25/19 14:22 03/25/19 14:22 General: Alert, Oriented x3, Cooperative, No apparent distress HEENT: Atraumatic Extremities: No cyanosis, Capillary Refill Less than 3 Seconds, No Calf Tenderness, Diminished Peripheral Pulses, Edema Skin: Ulcer/ Wound - No purulence, erythema, streaking, odor or probe to bone. There are 2 main ulcer sites the plantar hindfoot and heel of the left foot. Her adjacent skin is hairless and atrophic. There are no ulcers noted on the right foot only a callus is present to the distal transmetatarsal amputation site. The ulcer bed on the left foot are fibrous with very minimal granulation tissue. There is no maceration or melina necrosis noted Wound Measurements and Assessment WC - Nurse 1 - General Ulcer Measurement Start: 03/19/19 13:37 Freq: Status: Active Protocol: Activity Type Activity Date Activity User E-Sign Co-Sign Detail Recorded Client Recorded Date Recorded By Document 03/25/19 14:22 RB [id number] 03/25/19 14:30 RB 03/25/19 14:22 Wound Center Nurse 1 [Ulcer Assessment] #5 L plantar foot inferior -Combined with other wound No -Current Size (cm) - Length 0.8 -Current Size (cm) - Width 2 -Current Size (cm) - Depth 0.2 -Total Square Cm 1.6 -Photo Taken No -Epithelialization None Present -Tunneling No -Undermining/Tunneling No -Circular Undermining No -Exudate Amt Small -Exudate Type Serosanguineous -Wound Margin Distinct, Outline Attached -Granulation Amt None Present (0 %) -Slough/Fibrin Yes -Necrosis Amt Large (67-100%) -Necrotic Tissue Type Adherent Slough -Texture (Georgina-wound Skin Appearance) Assessed, Localized Edema ,Scarring -Moisture (Georgina-wound Skin Appearance Assessed ) -Color (Georgina-wound Skin Appearance) Assessed, Erythema -Temperature (Georgina-wound Skin No Abnormality Appearance) (Pt Warm) -Tenderness on Palpation (Georgina-wound No Skin Appearance) -Ulcer Cleansing Rinsed/ Irrigated with Saline -Foul Odor after Cleansing No -Anesthetic Used 4% Lidocaine Solution #4. L plantar foot superior -Combined with other wound No -Current Size (cm) - Length 1.1 -Current Size (cm) - Width 1.2 -Current Size (cm) - Depth 0.3 -Total Square Cm 1.32 -Photo Taken No -Epithelialization None Present -Tunneling No -Undermining/Tunneling No -Circular Undermining No -Exudate Amt Small -Exudate Type Serosanguineous -Wound Margin Distinct, Outline Attached -Granulation Amt None Present (0 %) -Slough/Fibrin Yes -Necrosis Amt Large (67-100%) -Necrotic Tissue Type Adherent Slough -Texture (Georgina-wound Skin Appearance) Assessed, Localized Edema ,Scarring -Moisture (Georgina-wound Skin Appearance Assessed ) -Color (Georgina-wound Skin Appearance) Assessed -Temperature (Georgina-wound Skin No Abnormality Appearance) (Pt Warm) -Tenderness on Palpation (Georgina-wound Yes Skin Appearance) -Ulcer Cleansing Rinsed/ Irrigated with Saline -Foul Odor after Cleansing No -Anesthetic Used 4% Lidocaine Solution [Edema Assessment] -Lower Limb Edema Present Yes -Left Calf (cm) 45 -Left Ankle (cm) 28.6 WC - Nurse 2 - General Ulcer CM Notes Start: 03/19/19 13:37 Freq: Status: Active Protocol: Activity Type Activity Date Activity User E-Sign Co-Sign Detail Recorded Client Recorded Date Recorded By Document 03/25/19 14:44 JF [id number] 03/25/19 14:53 JF 03/25/19 14:44 Wound Center Nurse 2 [Procedure/Treatment] #5 L plantar foot inferior -Time 14:45 -Correct Patient Yes -Correct Side, Site, Position Yes -Correct Procedure Yes -Procedure Performed Yes -Type of Procedure Debridement -Clinical Debridement Subcutaneous -Post Debridement Size (cm) - Length 0.6 -Post Debridement Size (cm) - Width 1.7 -Post Debridement Size (cm) - Depth 0.2 -Total Square Cm 1.02 -Wound/Ulcer Outcome Not Healed -Ulcer Cleansing Rinsed/ Irrigated with Saline -Bioengineered Tissue No -Bleeding Controlled with Pressure -Offloading No -Treatment Response Procedure Tolerated Well #4. L plantar foot superior -Time 14:45 -Correct Patient Yes -Correct Side, Site, Position Yes -Correct Procedure Yes -Procedure Performed Yes -Type of Procedure Debridement -Clinical Debridement Subcutaneous -Post Debridement Size (cm) - Length 1.5 -Post Debridement Size (cm) - Width 1.3 -Post Debridement Size (cm) - Depth 0.2 -Total Square Cm 1.95 -Wound/Ulcer Outcome Not Healed -Ulcer Cleansing Rinsed/ Irrigated with Saline -Foul Odor after Cleansing No -Bioengineered Tissue No -Bleeding Controlled with Pressure -Offloading No -Treatment Response Procedure Tolerated Well [See Physician Procedure note for Specifics] Pain Scale: 0-10 Numeric [Pain] -Is Patient Pain Free? Yes Musculoskeletal: No Tenderness to Palpation of Joints or Extremities, Muscle Wasting, - - Right transmetatarsal amputation. Compartments remain soft to palpate bilateral lower extremities Neurological: - - Lack of normal epicritic sensation light touch is consistent with neuropathy status Psych/Mental Status: Normal Affect, Appropriate Debridement Note Post-Debridement Measurements/Treatment WC - Nurse 2 - General Ulcer CM Notes Start: 03/19/19 13:37 Freq: Status: Active Protocol: Activity Type Activity Date Activity User E-Sign Co-Sign Detail Recorded Client Recorded Date Recorded By Document 03/19/19 14:14 [id number] 03/19/19 14:32 MW Document 03/25/19 14:44 [id number] 03/25/19 14:53 03/19/19 03/25/19 14:14 14:44 Wound Center Nurse 2 #5 L plantar foot inferior -Time 14:17 14:45 -Correct Patient Yes Yes -Correct Side, Site, Position Yes Yes -Correct Procedure Yes Yes -Procedure Performed Yes Yes -Type of Procedure Debridement Debridement -Clinical Debridement Subcutaneous Subcutaneous -Post Debridement Size (cm) - Length 1.0 0.6 -Post Debridement Size (cm) - Width 2.5 1.7 -Post Debridement Size (cm) - Depth 0.3 0.2 -Total Square Cm 2.50 1.02 -Wound/Ulcer Outcome Not Healed Not Healed -Ulcer Cleansing Rinsed/ Rinsed/ Irrigated with Irrigated with Saline Saline -Foul Odor after Cleansing No -Bioengineered Tissue No No -Bleeding Controlled with Pressure Pressure -Offloading No No -Treatment Response Procedure Procedure Tolerated Well Tolerated Well #4. L plantar foot superior -Time 14:17 14:45 -Correct Patient Yes Yes -Correct Side, Site, Position Yes Yes -Correct Procedure Yes Yes -Procedure Performed Yes Yes -Type of Procedure Debridement Debridement -Clinical Debridement Subcutaneous Subcutaneous -Post Debridement Size (cm) - Length 1.6 1.5 -Post Debridement Size (cm) - Width 2.0 1.3 -Post Debridement Size (cm) - Depth 0.2 0.2 -Total Square Cm 3.20 1.95 -Wound/Ulcer Outcome Not Healed Not Healed -Ulcer Cleansing Rinsed/ Rinsed/ Irrigated with Irrigated with Saline Saline -Foul Odor after Cleansing No No -Bioengineered Tissue No No -Bleeding Controlled with Pressure Pressure -Offloading No No -Treatment Response Procedure Procedure Tolerated Well Tolerated Well Pain Scale: 0-10 Numeric Is Patient Pain Free? Yes Yes Wound debrided: plantar foot (distal), plantar foot (proximal) Laterality: Left Wound Grade/Stage: grade 1 Type of Debridement: Excisional debridement Anesthesia Used: 5% Lidocaine Gel Depth: in the subcutaneous layer Percentage of wound debrided: 100 Instrument Used: #15 blade, Forceps Tissue Removed: fibrous, devitalized subcutaneous, biofilm, slough, eschar Severity: Fat Layer Exposed Amount of bleeding with debridement: Mild Bleeding Controlled with: Pressure Patient tolerated procedure well Assessment/Plan Clinical Impression(s) from Imaging Studies Foot X-Ray 03/19/19 17:40 IMPRESSION: Diffuse demineralization and degenerative changes/amputation as above with diffuse distal foot soft tissue swelling. If high clinical suspicion of osteomyelitis recommend MRI imaging for definitive assessment. Electronically Signed: Ford Rahman DO at 9:18 EST , Service support , Assessment: See above diagnoses Plan: The patient was seen and examined at the wound center today and was updated on the plan of care. A subcutaneous debridement was performed today. The patient tolerated the procedure well. The patients wound care will consist of: Application of Santyl covered with gauze and postop shoe for offloading. Single layer Tubigrip's. X-ray ordered today to rule out injury to further tissue. This was reviewed without any foreign body, soft tissue emphysema, acute fracture dislocation or Charcot. There is notable small vessel calcification noted. Wound cultures were collected. There was multi-organism growth. Is noted she does not have systemic or local signs of infection today. However, she does have pathogenic bacteria that was identified in the wound bed and I recommend performing a daily medical grade antimicrobial soap wash daily with Brigida-Hex. Baseline bloodwork ordered. I reviewed her CBC which did not demonstrate any leukocytosis and a also her CMP. Her hemoglobin A1c was 6.8%. Her ESR was 116 and C-reactive protein 14.8. Trends will be monitored if infection returns. Vascular studies ordered and she is scheduled to get this test completed tomorrow. Glucerna ordered 3 times a day. Patient educated on the importance of diet on wound healing and instructed to increase protein and vitamin C intake. She is amendable to proceed with a nutrition referral and we agreed this will be performed after we get her other referral started. Patient verbalized understanding. Patient will follow up at wound healing center in one week or sooner if needed. Instructed patient on the importance of offloading and that if she is noncompliant, there is a risk for amputation, infection, or . Did instruct patient that she should not be standing on her feet for long periods of time. Patient has been advised to elevate lower extremities as much as possible. Elevation is to be implemented during daytime hours and legs are to be elevated to heart level, or higher, as much as possible. Prolonged idle sitting has been discouraged. Activity and ambulation has been encouraged. I recommend CAM Walker for the left foot and she was advised she can obtain this at the foot and ankle center. She recently stopped working at [employer] and this will allow her to further keep pressure off of her foot. She will be fitted properly for this and additional dual density Plastizote offloading liners will be fabricated with pockets to relieve further pressure off of the site. She also asked about diabetic shoes. I recommend her to use extra-depth diabetic shoes with an additional right toe filler and carbon fiber inlay. An order was provided for her to obtain this at [facility] [employer]. I would also like to debride her pre-ulcerative calluses on her right foot at follow-up visit and plan on doing this with callus softening agent next week. The referral is greatly appreciated. . 2019 MAC entry: Reviewed today: Pain assessment was completed as 4 out of 10 and her follow-up plan was reviewed and documented. Reviewed on March 25, 2019: Medication and allergies were reviewed and reconciled, she is a non-tobacco user, she does not have a living will on file and this was discussed, her pneumococcal vaccine is up-to-date, she did have an influenza immunization this season in November 2018. Her blood pressure is elevated at 165/72. I recommend she continues to follow-up with her primary care physician in regards to management. Diet and activity modifications were discussed for education in regards to this.
--- NOTE | 2019-03-26 08:55 | VDLE_ITS ---
Reason For Study: Shane LE edema RIGHT LEFT CFV is compressible, spontaneous, phasic, CFV is compressible, spontaneous, phasic, competent and demonstrates normal competent, and demonstrates normal augmentation. augmentation. FV is compressible, spontaneous, phasic, FV is compressible, spontaneous, phasic, competent and demonstrates normal competent and demonstrates normal augmentation. augmentation. POP V is compressible, spontaneous, phasic, POP V is compressible, spontaneous, phasic, competent and demonstrates normal competent and demonstrates normal augmentation. augmentation. T/P Trunk is compressible. T/P Trunk is compressible. PTV is compressible. PTV is compressible. RT PerV is compressible. LT PerV is compressible. SFJ is competent and measures .74 X .88 cm. SFJ is competent and measures .73 X 1.02 cm. GSV proximal thigh measures .35 X .32 cm. SSV proximal calf is competent and GSV at knee measures .35 X .37 cm. measures .27 X .28 cm. GSV above knee is competent. GSV is harvested. GSV below knee is INCOMPETENT for greater than 0.5 seconds. SSV proximal calf is competent and measures .34 X .36 cm. Procedure Exam performed in department. The exam was diagnostic. Interpretation Summary Deep veins of the lower extremities are bilaterally patent and compressible segmentally. There is no evidence of deep vein thrombosis on either side. Valvular competence appears intact within the proximal deep venous systems bilaterally. The right great saphenous vein appears patent and compressible segmentally. The left great saphenous vein is absent, having been previously harvested. Sapheno-femoral junctions are bilaterally competent . The right great saphenous vein appears competent above the knee. The right great saphenous vein appears incompetent below the knee. Small saphenous veins are patent and competent bilaterally. Ordering Physician: Zac Murphy Performed By: Juanito Reyes RVT
--- NOTE | 2019-03-26 08:55 | ART_ITS ---
Reason For Study: PAD Procedure A bilateral lower extremity continuous wave Doppler with analog waveform analysis,segmental pressures,and ankle brachial indexes without exercise. Left Segmental Pressures Left thigh = 253mmHg. Left calf = 136mmHg. Left posterior tibial artery = 70mmHg. Left dorsalis pedis artery = 135mmHg. The left dorsalis pedis waveforms are monophasic. The left posterior tibial artery waveforms are monophasic. Right Segmental Pressures Right brachial= 204mmHg. Right posterior tibial artery = 209mmHg. Right dorsalis pedis artery = 218mmHg. The right dorsalis pedis waveforms are biphasic. The right posterior tibial artery waveforms are biphasic. Indices The right ankle brachial index by the dorsalis pedis is 1.07. The right ankle brachial index by the posterior tibial artery is 1.02. The left ankle brachial index by the dorsalis pedis is .66. The left ankle brachial index by the posterior tibial artery is .34. Interpretation Summary Biphasic Doppler waveforms are noted at ankle level on the right. Monophasic Doppler waveforms are noted at ankle level on the left. Pulse-volume recording waveform amplitudes appear diminished at ankle level on the left, and at digital level bilaterally. The resting right ankle-brachial index is normal. The resting left ankle-brachial index is moderately diminished. Arterial flow appears normal at ankle level on the right. On the left, there is evidence of [id number] arterial occlusive disease. The occlusive disease in the left lower extremity appears to be at the femoral-popliteal level. Ordering Physician: Zac Murphy Performed By: LUX GUNN T
== END 2019-03-27 23:59 ==
LOC: CVS 09:00
PROVIDERS: PCP Family Medicine; Referring Provider Nurse Practitioner Family; Visit Provider Nurse Practitioner Family
DX: E11.621 Type 2 diabetes mellitus with foot ulcer (principal); R60.0 Localized edema; E11.51 Type 2 diabetes mellitus with diabetic peripheral angiopathy without gangrene; L97.422 Non-pressure chronic ulcer of left heel and midfoot with fat layer exposed; N18.6 End stage renal disease; I12.0 Hypertensive chronic kidney disease with stage 5 chronic kidney disease or end stage renal disease; I25.10 Atherosclerotic heart disease of native coronary artery without angina pectoris; E11.42 Type 2 diabetes mellitus with diabetic polyneuropathy; E78.5 Hyperlipidemia, unspecified; G47.33 Obstructive sleep apnea (adult) (pediatric); E66.9 Obesity, unspecified; Z89.431 Acquired absence of right foot; Z95.1 Presence of aortocoronary bypass graft; Z79.4 Long term (current) use of insulin; Z79.899 Other long term (current) drug therapy; L85.3 Xerosis cutis
CPT/HCPCS: 11042; 36415; 73630; 80053; 83036; 84134; 85025; 85652; 86140; 87070; 87075; 87077; 87186; 87205; 93923; 93970; 99213; G0463

== ENCOUNTER 2019-04-22 13:45 | Outpatient (RCR) | payer MEDICARE, MEDICAID, SELFPAY ==
[2019-03-25 14:22] VITALS: BMI 38.4
[2019-03-28 01:15] VITALS: BP 165/72; PULSE 79; RESP 18; TEMP 36.6
[2019-04-15 13:37] VITALS: BP 133/69; PULSE 86; RESP 18; TEMP 36.4; BMI 38.4
--- NOTE | 2019-04-15 16:00 | PN.PCM_ITS ---
(1) Ulcer of right lower extremity with fat layer exposed Status: Chronic Current Visit: Yes Code(s): L97.912 - Non-pressure chronic ulcer of unspecified part of right lower leg with fat layer exposed (2) Ulcer of left lower extremity with fat layer exposed Status: Chronic Current Visit: Yes Code(s): L97.922 - Non-pressure chronic ulcer of unspecified part of left lower leg with fat layer exposed (3) Callus of foot Status: Chronic Current Visit: Yes Code(s): L84 - Corns and callosities (4) Type 2 diabetes mellitus with diabetic polyneuropathy Status: Chronic Current Visit: Yes Code(s): E11.42 - Type 2 diabetes mellitus with diabetic polyneuropathy (5) Chronic ulcer of left foot with fat layer exposed Status: Chronic Current Visit: Yes Code(s): L97.522 - Non-pressure chronic ulcer of other part of left foot with fat layer exposed (6) Other specified peripheral vascular diseases Status: Suspected Current Visit: Yes Code(s): I73.89 - Other specified peripheral vascular diseases (7) Delayed wound healing Status: Chronic Current Visit: Yes Code(s): T14.8XXD - Other injury of unspecified body region, subsequent encounter (8) Localized edema Status: Chronic Current Visit: Yes Code(s): R60.0 - Localized edema (9) PVD (peripheral vascular disease) Status: Chronic Current Visit: Yes Code(s): I73.9 - Peripheral vascular disease, unspecified Type of Wound Date of Service: 04/15/19 Chief Complaint: Left foot ulcer History of Wound: This is a 63-year-old white female who presents to the wound healing center today with complaint of nonhealing diabetic foot ulcers on her left plantar surface. She is also following up for wounds to the front of both legs that she relates has always been there on and off. She has a past medical history significant for end-stage CKD on dialysis 3 times a week, uncontrolled type 2 diabetes mellitus with long-term insulin use, obesity, PVD, hypertension, hyperlipidemia, malnutrition, and history of amputation of the right transmetatarsal. She has recently completed a course of Levaquin by her primary care physician. She does state that she has neuropathy and does not have the best sensation to her feet, however she states that there has been an increase in pain. She also asked for help safely trimming her right foot callus at her transmetatarsal amputation stump site. She does not feel safe performance on her own and she is afraid this will evolve into an ulcer. She denies current drainage or redness. She has missed several appointments and has not been seen for nearly a month. Progress of Wound: Stable and devitalized left foot. New ulcers right and left legs. Callus right foot - Physical Exam Vital Signs Temp Pulse Resp BP 97.5 F L 86 18 133/69 H 04/15/19 13:37 04/15/19 13:37 04/15/19 13:37 04/15/19 13:37 General: Alert, Oriented x3, Cooperative, No apparent distress Extremities: No cyanosis, Capillary Refill Less than 3 Seconds, No Calf Tenderness, Diminished Peripheral Pulses, Edema Skin: Ulcer/ Wound - No purulence, erythema, streaking, infection. Poor hygiene is noted and there was dirt and a rock that was removed from the plantar foot ulcer. The plantar foot ulcers have devitalized moist fibrous eschar with upon debridement there is remaining fibrous and some granular tissue. There is no deep probing or exposed bone. The anterior right and left leg ulcers are consistent with excoriations with some granulation tissue exposed. The peripheral skin is hairless, atrophic, and with some hyperpigmentation., - - Large callus to plantar anterior central right foot transmetatarsal amputation stump site. There are no open lesions or infection on the right foot Wound Measurements and Assessment WC - Nurse 1 - General Ulcer Measurement Start: 04/01/19 13:02 Freq: Status: Active Protocol: Activity Type Activity Date Activity User E-Sign Co-Sign Detail Recorded Client Recorded Date Recorded By Document 04/15/19 13:37 DL [id number] 04/15/19 13:57 DL 04/15/19 13:37 Wound Center Nurse 1 [Ulcer Assessment] #7 L Alexander Cluster -Current Size (cm) - Length 6 -Current Size (cm) - Width 0.8 -Current Size (cm) - Depth 0.1 -Total Square Cm 4.8 -Photo Taken Yes -Classification - Thickness Partial Thickness -Exudate Amt Small -Exudate Type Serosanguineous -Wound Margin Distinct, Outline Attached -Granulation Amt Medium (34-66%) -Granulation Quality Red -Necrosis Amt Medium (34-66%) -Necrotic Tissue Type Adherent Slough -Structure Exposed N/A -Texture (Georgina-wound Skin Appearance) Scarring -Moisture (Georgina-wound Skin Appearance No Abnormality ) -Color (Georgina-wound Skin Appearance) Hemosiderin Staining -Temperature (Georgina-wound Skin No Abnormality Appearance) (Pt Warm) -Tenderness on Palpation (Georgina-wound No Skin Appearance) -Ulcer Cleansing Wound Cleanser -Foul Odor after Cleansing No -Anesthetic Used 4% Lidocaine Solution #6 RShin cluster -Current Size (cm) - Length 7 -Current Size (cm) - Width 7.5 -Current Size (cm) - Depth 0.2 -Total Square Cm 52.5 -Photo Taken Yes -Classification - Thickness Full Thickness without Exposed Support Structure -Exudate Amt Small -Exudate Type Serosanguineous -Wound Margin Distinct, Outline Attached -Granulation Amt Medium (34-66%) -Granulation Quality Red -Necrosis Amt Medium (34-66%) -Necrotic Tissue Type Adherent Slough -Structure Exposed N/A -Texture (Georgina-wound Skin Appearance) Scarring -Moisture (Georgina-wound Skin Appearance No Abnormality ) -Color (Georgina-wound Skin Appearance) Hemosiderin Staining -Temperature (Georigna-wound Skin No Abnormality Appearance) (Pt Warm) -Tenderness on Palpation (Georgina-wound No Skin Appearance) -Ulcer Cleansing Wound Cleanser -Foul Odor after Cleansing No -Anesthetic Used 4% Lidocaine Solution #5 L plantar foot inferior -Current Size (cm) - Length 2.4 -Current Size (cm) - Width 3.2 -Current Size (cm) - Depth 0.2 -Total Square Cm 7.68 -Photo Taken No -Exudate Amt Small -Exudate Type Serosanguineous -Wound Margin Distinct, Outline Attached -Granulation Amt None Present (0 %) -Necrosis Amt Large (67-100%) -Necrotic Tissue Type Adherent Slough -Structure Exposed N/A -Texture (Georgina-wound Skin Appearance) Scarring -Moisture (Georgina-wound Skin Appearance Dry/Scaly ) -Color (Georgina-wound Skin Appearance) No Abnormality -Temperature (Georgina-wound Skin No Abnormality Appearance) (Pt Warm) -Tenderness on Palpation (Georgina-wound Yes Skin Appearance) -Ulcer Cleansing Wound Cleanser -Foul Odor after Cleansing No -Anesthetic Used 4% Lidocaine Solution #4. L plantar foot superior -Current Size (cm) - Length 1 -Current Size (cm) - Width 0.8 -Current Size (cm) - Depth 0.5 -Total Square Cm 0.8 -Undermining/Tunneling Starts (O' 7 clock) -Undermining/Tunneling Ends (O'clock) 2 -Maximum Distance (cm) 0.2 -Exudate Amt Small -Exudate Type Serosanguineous -Wound Margin Distinct, Outline Attached -Granulation Amt None Present (0 %) -Necrosis Amt Large (67-100%) -Necrotic Tissue Type Adherent Slough -Structure Exposed N/A -Texture (Georgina-wound Skin Appearance) Scarring -Moisture (Georgina-wound Skin Appearance Dry/Scaly ) -Color (Georgina-wound Skin Appearance) No Abnormality -Temperature (Georgina-wound Skin No Abnormality Appearance) (Pt Warm) -Tenderness on Palpation (Georgina-wound No Skin Appearance) -Ulcer Cleansing Wound Cleanser -Foul Odor after Cleansing No -Anesthetic Used 4% Lidocaine Solution [Edema Assessment] -Right Calf (cm) 39.5 -Right Ankle (cm) 24 WC - Nurse 2 - General Ulcer CM Notes Start: 04/01/19 13:02 Freq: Status: Active Protocol: Activity Type Activity Date Activity User E-Sign Co-Sign Detail Recorded Client Recorded Date Recorded By Document 04/15/19 14:16 MILTON [id number] 04/15/19 14:31 MILTON 04/15/19 14:16 Wound Center Nurse 2 [Procedure/Treatment] #7 L Alexander Cluster -Time 14:18 -Correct Patient Yes -Correct Side, Site, Position Yes -Correct Procedure Yes -Procedure Performed Yes -Type of Procedure Debridement -Clinical Debridement Subcutaneous -Post Debridement Size (cm) - Length 6 -Post Debridement Size (cm) - Width 0.8 -Post Debridement Size (cm) - Depth 0.1 -Total Square Cm 4.8 -Wound/Ulcer Outcome Not Healed -Ulcer Cleansing Rinsed/ Irrigated with Saline -Foul Odor after Cleansing No -Bioengineered Tissue No -Bleeding Controlled with Pressure -Other 0.48 -Offloading No -Treatment Response Procedure Tolerated Well #6 RShin cluster -Time 14:19 -Correct Patient Yes -Correct Side, Site, Position Yes -Correct Procedure Yes -Procedure Performed Yes -Type of Procedure Debridement -Clinical Debridement Subcutaneous -Post Debridement Size (cm) - Length 7 -Post Debridement Size (cm) - Width 7.5 -Post Debridement Size (cm) - Depth 0.2 -Total Square Cm 52.5 -Wound/Ulcer Outcome Not Healed -Ulcer Cleansing Rinsed/ Irrigated with Saline -Foul Odor after Cleansing No -Bioengineered Tissue No -Bleeding Controlled with Pressure -Other 5.25 debrided. -Offloading No -Treatment Response Procedure Tolerated Well #5 L plantar foot inferior -Time 14:19 -Correct Patient Yes -Correct Side, Site, Position Yes -Correct Procedure Yes -Procedure Performed Yes -Type of Procedure Debridement -Clinical Debridement Subcutaneous -Post Debridement Size (cm) - Length 2.5 -Post Debridement Size (cm) - Width 3.2 -Post Debridement Size (cm) - Depth 0.2 -Total Square Cm 8.00 -Wound/Ulcer Outcome Not Healed -Ulcer Cleansing Rinsed/ Irrigated with Saline -Foul Odor after Cleansing No -Bioengineered Tissue No -Bleeding Controlled with Pressure -Offloading No -Treatment Response Procedure Tolerated Well #4. L plantar foot superior -Time 14:19 -Correct Patient Yes -Correct Side, Site, Position Yes -Correct Procedure Yes -Procedure Performed Yes -Type of Procedure Debridement -Clinical Debridement Subcutaneous -Post Debridement Size (cm) - Length 1 -Post Debridement Size (cm) - Width 0.9 -Post Debridement Size (cm) - Depth 0.4 -Total Square Cm 0.9 -Wound/Ulcer Outcome Not Healed -Ulcer Cleansing Rinsed/ Irrigated with Saline -Foul Odor after Cleansing No -Bioengineered Tissue No -Bleeding Controlled with Pressure -Offloading No -Treatment Response Procedure Tolerated Well [See Physician Procedure note for Specifics] Pain Scale: 0-10 Numeric [Pain] -Is Patient Pain Free? Yes Musculoskeletal: No Tenderness to Palpation of Joints or Extremities, Muscle Wasting Neurological: - - Lack of normal epicritic sensation to light touch is consistent with neuropathy status Psych/Mental Status: Normal Affect, Appropriate Debridement Note Post-Debridement Measurements/Treatment WC - Nurse 2 - General Ulcer CM Notes Start: 04/01/19 13:02 Freq: Status: Active Protocol: Activity Type Activity Date Activity User E-Sign Co-Sign Detail Recorded Client Recorded Date Recorded By Document 04/15/19 14:16 MILTON [id number] 04/15/19 14:31 MILTON 04/15/19 14:16 Wound Center Nurse 2 #7 L Alexander Cluster -Time 14:18 -Correct Patient Yes -Correct Side, Site, Position Yes -Correct Procedure Yes -Procedure Performed Yes -Type of Procedure Debridement -Clinical Debridement Subcutaneous -Post Debridement Size (cm) - Length 6 -Post Debridement Size (cm) - Width 0.8 -Post Debridement Size (cm) - Depth 0.1 -Total Square Cm 4.8 -Wound/Ulcer Outcome Not Healed -Ulcer Cleansing Rinsed/ Irrigated with Saline -Foul Odor after Cleansing No -Bioengineered Tissue No -Bleeding Controlled with Pressure -Other 0.48 -Offloading No -Treatment Response Procedure Tolerated Well #6 RShin cluster -Time 14:19 -Correct Patient Yes -Correct Side, Site, Position Yes -Correct Procedure Yes -Procedure Performed Yes -Type of Procedure Debridement -Clinical Debridement Subcutaneous -Post Debridement Size (cm) - Length 7 -Post Debridement Size (cm) - Width 7.5 -Post Debridement Size (cm) - Depth 0.2 -Total Square Cm 52.5 -Wound/Ulcer Outcome Not Healed -Ulcer Cleansing Rinsed/ Irrigated with Saline -Foul Odor after Cleansing No -Bioengineered Tissue No -Bleeding Controlled with Pressure -Other 5.25 debrided. -Offloading No -Treatment Response Procedure Tolerated Well #5 L plantar foot inferior -Time 14:19 -Correct Patient Yes -Correct Side, Site, Position Yes -Correct Procedure Yes -Procedure Performed Yes -Type of Procedure Debridement -Clinical Debridement Subcutaneous -Post Debridement Size (cm) - Length 2.5 -Post Debridement Size (cm) - Width 3.2 -Post Debridement Size (cm) - Depth 0.2 -Total Square Cm 8.00 -Wound/Ulcer Outcome Not Healed -Ulcer Cleansing Rinsed/ Irrigated with Saline -Foul Odor after Cleansing No -Bioengineered Tissue No -Bleeding Controlled with Pressure -Offloading No -Treatment Response Procedure Tolerated Well #4. L plantar foot superior -Time 14:19 -Correct Patient Yes -Correct Side, Site, Position Yes -Correct Procedure Yes -Procedure Performed Yes -Type of Procedure Debridement -Clinical Debridement Subcutaneous -Post Debridement Size (cm) - Length 1 -Post Debridement Size (cm) - Width 0.9 -Post Debridement Size (cm) - Depth 0.4 -Total Square Cm 0.9 -Wound/Ulcer Outcome Not Healed -Ulcer Cleansing Rinsed/ Irrigated with Saline -Foul Odor after Cleansing No -Bioengineered Tissue No -Bleeding Controlled with Pressure -Offloading No -Treatment Response Procedure Tolerated Well Pain Scale: 0-10 Numeric Is Patient Pain Free? Yes Wound debrided: Plantar foot Laterality: Left Wound Grade/Stage: Grade 1 Type of Debridement: Excisional debridement Anesthesia Used: 5% Lidocaine Gel Depth: in the subcutaneous layer Percentage of wound debrided: 100 Instrument Used: #15 blade, Forceps Tissue Removed: fibrous, devitalized subcutaneous, biofilm, slough, eschar moist Severity: Fat Layer Exposed Amount of bleeding with debridement: Mild Bleeding Controlled with: Pressure Patient tolerated procedure well - Additional Wound Wound debrided: anterior legs Laterality: Left Wound Grade/Stage: grade 1 Type of Debridement: Excisional debridement Anesthesia Used: 5% Lidocaine Gel Depth: in the subcutaneous layer Percentage of wound debrided: 10 Instrument Used: #15 blade Tissue Removed: fibrous, devitalized subcutaneous, biofilm, slough Severity: Fat Layer Exposed Amount of bleeding with debridement: Mild Bleeding Controlled with: Pressure Patient tolerated procedure: Patient tolerated procedure well Assessment/Plan Active Problems (Last Reviewed 09/04/17 @ 08:57 by Vicki Turner) Type 2 diabetes mellitus with diabetic polyneuropathy (Chronic) Chronic ulcer of left foot with fat layer exposed (Chronic) Delayed wound healing (Chronic) Localized edema (Chronic) Ulcer of right lower extremity with fat layer exposed (Chronic) Ulcer of left lower extremity with fat layer exposed (Chronic) Callus of foot (Chronic) PVD (peripheral vascular disease) (Chronic) Assessment: See above diagnoses Plan: The patient was seen and examined at the wound center today and was updated on the plan of care. A subcutaneous debridement was performed today. The patient tolerated the procedure well. The patients wound care will consist of: Application of Santyl covered with gauze and postop shoe for offloading. Single layer Tubigrip's. X-ray ordered today to rule out injury to further tissue. This was reviewed without any foreign body, soft tissue emphysema, acute fracture dislocation or Charcot. There is notable small vessel calcification noted. Wound cultures were collected. There was multi-organism growth. Is noted she does not have systemic or local signs of infection today. However, she does have pathogenic bacteria that was identified in the wound bed and I recommend performing a daily medical grade antimicrobial soap wash daily with Brigida-Hex. Baseline bloodwork ordered. I reviewed her CBC which did not demonstrate any leukocytosis and a also her CMP. Her hemoglobin A1c was 6.8%. Her ESR was 116 and C-reactive protein 14.8. Trends will be monitored if infection returns. Vascular studies ordered and she is scheduled to get this te st completed tomorrow. Glucerna ordered 3 times a day. Patient educated on the importance of diet on wound healing and instructed to increase protein and vitamin C intake. She is amendable to proceed with a nutrition referral and we agreed this will be performed after we get her other referral started. Patient verbalized understanding. Patient will follow up at wound healing center in one week or sooner if needed. Instructed patient on the importance of offloading and that if she is noncompliant, there is a risk for amputation, infection, or . Did instruct patient that she should not be standing on her feet for long periods of time. Patient has been advised to elevate lower extremities as much as possible. Elevation is to be implemented during daytime hours and legs are to be elevated to heart level, or higher, as much as possible. Prolonged idle sitting has been discouraged. Activity and ambulation has been encouraged. I recommend CAM Walker for the left foot and she was advised she can obtain this at the foot and ankle center. She will be fitted properly for this and additional dual density Plastizote offloading liners will be fabricated wIth pockets to relieve further pressure off of the site. She also asked about diabetic shoes. I recommend her to use extra-depth diabetic shoes with an additional right toe filler and carbon fiber inlay. An order was provided for her to obtain this at [facility] [employer] Her right foot callus was debrided with a 15 blade without incident. She is reassured no ulcer or infection is noted here. . 2020 [place] entry: Reviewed today: Pain assessment was completed as 4 out of 10 and her follow-up plan was reviewed and documented. Reviewed 04-15-2019: She denies falling this past year. Reviewed on March 25, 2019: Medication and allergies were reviewed and reconciled, she is a non- tobacco user, she does not have a living will on file and this was discussed, her pneumococcal vaccine is up-to-date, she did have an influenza immunization this season in November 2018. Her blood pressure is elevated at 165/72. I recommend she continues to follow-up with her primary care physician in regards to management. Diet and activity modifications were discussed for education in regards to this.
[2019-04-22 13:51] VITALS: BP 158/55; PULSE 71; RESP 18; TEMP 36.6; BMI 38.4
--- NOTE | 2019-04-22 23:43 | PN.PCM_ITS ---
(1) Ulcer of right lower extremity with fat layer exposed Status: Chronic Code(s): L97.912 - Non-pressure chronic ulcer of unspecified part of right lower leg with fat layer exposed (2) Ulcer of left lower extremity with fat layer exposed Status: Chronic Code(s): L97.922 - Non-pressure chronic ulcer of unspecified part of left lower leg with fat layer exposed (3) Type 2 diabetes mellitus with diabetic polyneuropathy Status: Chronic Code(s): E11.42 - Type 2 diabetes mellitus with diabetic polyneuropathy (4) Chronic ulcer of left foot with fat layer exposed Status: Chronic Code(s): L97.522 - Non-pressure chronic ulcer of other part of left foot with fat layer exposed (5) Other specified peripheral vascular diseases Status: Suspected Code(s): I73.89 - Other specified peripheral vascular diseases (6) Delayed wound healing Status: Chronic Code(s): T14.8XXD - Other injury of unspecified body region, subsequent encounter (7) Localized edema Status: Chronic Code(s): R60.0 - Localized edema (8) PVD (peripheral vascular disease) Status: Chronic Code(s): I73.9 - Peripheral vascular disease, unspecified Type of Wound Date of Service: 04/22/19 Chief Complaint: Left foot ulcer History of Wound: This is a 63-year-old white female who presents to the wound healing center today with complaint of nonhealing diabetic foot ulcers on her left plantar surface. She is also following up for wounds to the front of both legs that she relates has always been there on and off. She has a past medical history significant for end-stage CKD on dialysis 3 times a week, uncontrolled type 2 diabetes mellitus with long-term insulin use, obesity, PVD, hypertension, hyperlipidemia, malnutrition, and history of amputation of the right transmetatarsal. She has recently completed a course of Levaquin by her primary care physician. She does state that she has neuropathy and does not have the best sensation to her feet, however she states that there has been an increase in pain. She also asked for help safely trimming her right foot callus at her transmetatarsal amputation stump site. She does not feel safe performance on her own and she is afraid this will evolve into an ulcer. She denies current drainage or redness. she is still trying to get scheduled to see vascular surgery. Progress of Wound: Stable and devitalized left foot. stable ulcers right and left legs - Physical Exam Vital Signs Temp Pulse Resp BP 97.9 F 71 18 158/55 H 04/22/19 13:51 04/22/19 13:51 04/22/19 13:51 04/22/19 13:51 General: Alert, Oriented x3, Cooperative, No apparent distress HEENT: Atraumatic Extremities: Capillary Refill Less than 3 Seconds - left toes and stump right foot, No Calf Tenderness, Diminished Peripheral Pulses, Edema - mild, bilateral Skin: Ulcer/ Wound - no purulence, no erythema, no streaking, no infection, no odor. left foot ulcer cluster now with four sites (expanded). fibrous and devitalized tissue noted. no probe to deep tissue noted, - - atrophic, thin, hairless skin noted Wound Measurements and Assessment WC - Nurse 1 - General Ulcer Measurement Start: 04/01/19 13:02 Freq: Status: Active Protocol: Activity Type Activity Date Activity User E-Sign Co-Sign Detail Recorded Client Recorded Date Recorded By Document 04/22/19 13:51 DL [id number] 04/22/19 14:09 DL 04/22/19 13:51 Wound Center Nurse 1 [Ulcer Assessment] #9 L Heel [place] -Current Size (cm) - Length 1 -Current Size (cm) - Width 0.5 -Current Size (cm) - Depth 0.3 -Total Square Cm 0.5 -Photo Taken Yes -Exudate Amt Small -Exudate Type Serosanguineous -Wound Margin Distinct, Outline Attached -Granulation Amt None Present (0 %) -Necrosis Amt Large (67-100%) -Necrotic Tissue Type Adherent Slough -Structure Exposed N/A -Texture (Georgina-wound Skin Appearance) Callus,Scarring -Moisture (Georgina-wound Skin Appearance Dry/Scaly ) -Color (Georgina-wound Skin Appearance) No Abnormality -Temperature (Georgina-wound Skin No Abnormality Appearance) (Pt Warm) -Tenderness on Palpation (Georgina-wound No Skin Appearance) -Ulcer Cleansing Wound Cleanser -Foul Odor after Cleansing No -Anesthetic Used 4% Lidocaine Solution #8 L Lat Foot inf -Current Size (cm) - Length 0.4 -Current Size (cm) - Width 1 -Current Size (cm) - Depth 0.3 -Total Square Cm 0.4 -Photo Taken No -Exudate Amt Small -Exudate Type Serosanguineous -Wound Margin Distinct, Outline Attached -Granulation Amt Large (67-100%) -Granulation Quality [place] -Necrosis Amt Small (1-33%) -Necrotic Tissue Type Adherent Slough -Structure Exposed N/A -Texture (Georgina-wound Skin Appearance) Scarring -Moisture (Georgina-wound Skin Appearance Dry/Scaly ) -Color (Georgina-wound Skin Appearance) No Abnormality -Temperature (Georgina-wound Skin No Abnormality Appearance) (Pt Warm) -Tenderness on Palpation (Georgina-wound No Skin Appearance) -Ulcer Cleansing Wound Cleanser -Foul Odor after Cleansing No -Anesthetic Used 4% Lidocaine Solution #7 L Alexander Cluster -Current Size (cm) - Length 6.6 -Current Size (cm) - Width 4.1 -Current Size (cm) - Depth 0.1 -Total Square Cm 27.06 -Exudate Amt Small -Exudate Type Sanguineous -Wound Margin Indistinct, Non -Visible -Granulation Amt Large (67-100%) -Granulation Quality Red -Necrosis Amt Small (1-33%) -Necrotic Tissue Type Adherent Slough -Structure Exposed N/A -Texture (Georgina-wound Skin Appearance) Scarring -Moisture (Georgina-wound Skin Appearance Dry/Scaly ) -Color (Georgina-wound Skin Appearance) Hemosiderin Staining -Temperature (Georgina-wound Skin No Abnormality Appearance) (Pt Warm) -Tenderness on Palpation (Georgina-wound No Skin Appearance) -Ulcer Cleansing Wound Cleanser -Foul Odor after Cleansing No -Anesthetic Used 4% Lidocaine Solution #6 RShin cluster -Current Size (cm) - Length 5.5 -Current Size (cm) - Width 8.4 -Current Size (cm) - Depth 0.1 -Total Square Cm 46.20 -Photo Taken No -Exudate Amt Small -Exudate Type Sanguineous -Wound Margin Indistinct, Non -Visible -Granulation Amt Large (67-100%) -Granulation Quality Red -Necrosis Amt Small (1-33%) -Necrotic Tissue Type Adherent Slough -Structure Exposed N/A -Texture (Georgina-wound Skin Appearance) Scarring -Moisture (Georgina-wound Skin Appearance No Abnormality, ) Dry/Scaly -Color (Georgina-wound Skin Appearance) Hemosiderin Staining -Temperature (Georgina-wound Skin No Abnormality Appearance) (Pt Warm) -Tenderness on Palpation (Georgina-wound No Skin Appearance) -Ulcer Cleansing Wound Cleanser -Foul Odor after Cleansing No -Anesthetic Used 4% Lidocaine Solution #5 L plantar foot inferior -Current Size (cm) - Length 0.9 -Current Size (cm) - Width 0.7 -Current Size (cm) - Depth 0.8 -Total Square Cm 0.63 -Photo Taken No -Exudate Amt Small -Exudate Type Serosanguineous -Wound Margin Distinct, Outline Attached -Granulation Amt Small (1-33%) -Granulation Quality [place] -Necrosis Amt Large (67-100%) -Necrotic Tissue Type Adherent Slough -Structure Exposed N/A -Texture (Georgina-wound Skin Appearance) Scarring -Moisture (Georgina-wound Skin Appearance Dry/Scaly ) -Color (Georgina-wound Skin Appearance) No Abnormality -Temperature (Georgina-wound Skin No Abnormality Appearance) (Pt Warm) -Tenderness on Palpation (Georgina-wound Yes Skin Appearance) -Ulcer Cleansing Wound Cleanser -Foul Odor after Cleansing No -Anesthetic Used 4% Lidocaine Solution #4. L plantar foot superior -Current Size (cm) - Length 1.8 -Current Size (cm) - Width 0.7 -Current Size (cm) - Depth 0.1 -Total Square Cm 1.26 -Photo Taken No -Exudate Amt Small -Exudate Type Serosanguineous -Wound Margin Distinct, Outline Attached -Granulation Amt Large (67-100%) -Granulation Quality [place] -Necrosis Amt Small (1-33%) -Necrotic Tissue Type Adherent Slough -Structure Exposed N/A -Texture (Georgina-wound Skin Appearance) Scarring -Moisture (Georgina-wound Skin Appearance Dry/Scaly ) -Color (Georgina-wound Skin Appearance) No Abnormality -Temperature (Georgina-wound Skin No Abnormality Appearance) (Pt Warm) -Tenderness on Palpation (Georgina-wound No Skin Appearance) -Ulcer Cleansing Wound Cleanser -Anesthetic Used 4% Lidocaine Solution [Edema Assessment] -Right Calf (cm) 40.5 -Right Ankle (cm) 25 -Left Calf (cm) 42 -Left Ankle (cm) 27 WC - Nurse 2 - General Ulcer CM Notes Start: 04/01/19 13:02 Freq: Status: Active Protocol: Activity Type Activity Date Activity User E-Sign Co-Sign Detail Recorded Client Recorded Date Recorded By Document 04/22/19 14:39 MILTON [id number] 04/22/19 14:41 MILTON 04/22/19 14:39 Wound Center Nurse 2 [Procedure/Treatment] #9 L Heel [place] -Time 14:39 -Correct Patient Yes -Correct Side, Site, Position Yes -Correct Procedure Yes -Procedure Performed Yes -Type of Procedure Debridement -Clinical Debridement Subcutaneous -Post Debridement Size (cm) - Length 1 -Post Debridement Size (cm) - Width 0.6 -Post Debridement Size (cm) - Depth 0.3 -Total Square Cm 0.6 -Wound/Ulcer Outcome Not Healed -Ulcer Cleansing Rinsed/ Irrigated with Saline -Foul Odor after Cleansing No -Bioengineered Tissue No -Bleeding Controlled with Pressure -Offloading No -Treatment Response Procedure Tolerated Well #8 L Lat Foot inf -Time 14:39 -Correct Patient Yes -Correct Side, Site, Position Yes -Correct Procedure Yes -Procedure Performed Yes -Type of Procedure Debridement -Clinical Debridement Subcutaneous -Post Debridement Size (cm) - Length 0.5 -Post Debridement Size (cm) - Width 1 -Post Debridement Size (cm) - Depth 0.3 -Total Square Cm 0.5 -Wound/Ulcer Outcome Not Healed -Ulcer Cleansing Rinsed/ Irrigated with Saline -Foul Odor after Cleansing No -Bioengineered Tissue No -Bleeding Controlled with Pressure -Offloading No -Treatment Response Procedure Tolerated Well #7 L Alexander Cluster -Time 14:39 -Correct Patient Yes -Correct Side, Site, Position Yes -Correct Procedure Yes -Procedure Performed Yes -Type of Procedure Debridement -Clinical Debridement Subcutaneous -Post Debridement Size (cm) - Length 6.6 -Post Debridement Size (cm) - Width 4.2 -Post Debridement Size (cm) - Depth 0.1 -Total Square Cm 27.72 -Wound/Ulcer Outcome Not Healed -Ulcer Cleansing Rinsed/ Irrigated with Saline -Foul Odor after Cleansing No -Bioengineered Tissue No -Bleeding Controlled with Pressure -Offloading No -Treatment Response Procedure Tolerated Well #6 RShin cluster -Time 14:40 -Correct Patient Yes -Correct Side, Site, Position Yes -Correct Procedure Yes -Procedure Performed Yes -Type of Procedure Debridement -Clinical Debridement Subcutaneous -Post Debridement Size (cm) - Length 5.5 -Post Debridement Size (cm) - Width 8.5 -Post Debridement Size (cm) - Depth 0.1 -Total Square Cm 46.75 -Wound/Ulcer Outcome Not Healed -Ulcer Cleansing Rinsed/ Irrigated with Saline -Foul Odor after Cleansing No -Bioengineered Tissue No -Bleeding Controlled with Pressure -Offloading No -Treatment Response Procedure Tolerated Well #5 L plantar foot inferior -Time 14:40 -Correct Patient Yes -Correct Side, Site, Position Yes -Correct Procedure Yes -Procedure Performed Yes -Type of Procedure Debridement -Clinical Debridement Subcutaneous -Post Debridement Size (cm) - Length 1.0 -Post Debridement Size (cm) - Width 0.8 -Post Debridement Size (cm) - Depth 0.8 -Total Square Cm 0.80 -Wound/Ulcer Outcome Not Healed -Ulcer Cleansing Rinsed/ Irrigated with Saline -Foul Odor after Cleansing No -Bioengineered Tissue No -Bleeding Controlled with Pressure -Offloading No -Treatment Response Procedure Tolerated Well #4. L plantar foot superior -Time 14:41 -Correct Patient Yes -Correct Side, Site, Position Yes -Correct Procedure Yes -Procedure Performed Yes -Type of Procedure Debridement -Clinical Debridement Subcutaneous -Post Debridement Size (cm) - Length 1.8 -Post Debridement Size (cm) - Width 0.8 -Post Debridement Size (cm) - Depth 0.1 -Total Square Cm 1.44 -Wound/Ulcer Outcome Not Healed -Ulcer Cleansing Rinsed/ Irrigated with Saline -Foul Odor after Cleansing No -Bioengineered Tissue No -Bleeding Controlled with Pressure -Offloading No -Treatment Response Procedure Tolerated Well [See Physician Procedure note for Specifics] Pain Scale: 0-10 Numeric [Pain] -Is Patient Pain Free? Yes Musculoskeletal: No Tenderness to Palpation of Joints or Extremities, Muscle Wasting, - - compartments soft Neurological: - - lack of normal epicritic sensation via light touch consistent with neuropathy Psych/Mental Status: Appropriate Debridement Note Post-Debridement Measurements/Treatment WC - Nurse 2 - General Ulcer CM Notes Start: 04/01/19 13:02 Freq: Status: Active Protocol: Activity Type Activity Date Activity User E-Sign Co-Sign Detail Recorded Client Recorded Date Recorded By Document 04/15/19 14:16 MILTON [id number] 04/15/19 14:31 Document 04/22/19 14:39 [id number] 04/22/19 14:41 04/15/19 04/22/19 14:16 14:39 Wound Center Nurse 2 #9 L Heel [place] -Time 14:39 -Correct Patient Yes -Correct Side, Site, Position Yes -Correct Procedure Yes -Procedure Performed Yes -Type of Procedure Debridement -Clinical Debridement Subcutaneous -Post Debridement Size (cm) - Length 1 -Post Debridement Size (cm) - Width 0.6 -Post Debridement Size (cm) - Depth 0.3 -Total Square Cm 0.6 -Wound/Ulcer Outcome Not Healed -Ulcer Cleansing Rinsed/ Irrigated with Saline -Foul Odor after Cleansing No -Bioengineered Tissue No -Bleeding Controlled with Pressure -Offloading No -Treatment Response Procedure Tolerated Well #8 L Lat Foot inf -Time 14:39 -Correct Patient Yes -Correct Side, Site, Position Yes -Correct Procedure Yes -Procedure Performed Yes -Type of Procedure Debridement -Clinical Debridement Subcutaneous -Post Debridement Size (cm) - Length 0.5 -Post Debridement Size (cm) - Width 1 -Post Debridement Size (cm) - Depth 0.3 -Total Square Cm 0.5 -Wound/Ulcer Outcome Not Healed -Ulcer Cleansing Rinsed/ Irrigated with Saline -Foul Odor after Cleansing No -Bioengineered Tissue No -Bleeding Controlled with Pressure -Offloading No -Treatment Response Procedure Tolerated Well #7 L Alexander Cluster -Time 14:18 14:39 -Correct Patient Yes Yes -Correct Side, Site, Position Yes Yes -Correct Procedure Yes Yes -Procedure Performed Yes Yes -Type of Procedure Debridement Debridement -Clinical Debridement Subcutaneous Subcutaneous -Post Debridement Size (cm) - Length 6 6.6 -Post Debridement Size (cm) - Width 0.8 4.2 -Post Debridement Size (cm) - Depth 0.1 0.1 -Total Square Cm 4.8 27.72 -Wound/Ulcer Outcome Not Healed Not Healed -Ulcer Cleansing Rinsed/ Rinsed/ Irrigated with Irrigated with Saline Saline -Foul Odor after Cleansing No No -Bioengineered Tissue No No -Bleeding Controlled with Pressure Pressure -Other 0.48 -Offloading No No -Treatment Response Procedure Procedure Tolerated Well Tolerated Well #6 RShin cluster -Time 14:19 14:40 -Correct Patient Yes Yes -Correct Side, Site, Position Yes Yes -Correct Procedure Yes Yes -Procedure Performed Yes Yes -Type of Procedure Debridement Debridement -Clinical Debridement Subcutaneous Subcutaneous -Post Debridement Size (cm) - Length 7 5.5 -Post Debridement Size (cm) - Width 7.5 8.5 -Post Debridement Size (cm) - Depth 0.2 0.1 -Total Square Cm 52.5 46.75 -Wound/Ulcer Outcome Not Healed Not Healed -Ulcer Cleansing Rinsed/ Rinsed/ Irrigated with Irrigated with Saline Saline -Foul Odor after Cleansing No No -Bioengineered Tissue No No -Bleeding Controlled with Pressure Pressure -Other 5.25 debrided. -Offloading No No -Treatment Response Procedure Procedure Tolerated Well Tolerated Well #5 L plantar foot inferior -Time 14:19 14:40 -Correct Patient Yes Yes -Correct Side, Site, Position Yes Yes -Correct Procedure Yes Yes -Procedure Performed Yes Yes -Type of Procedure Debridement Debridement -Clinical Debridement Subcutaneous Subcutaneous -Post Debridement Size (cm) - Length 2.5 1.0 -Post Debridement Size (cm) - Width 3.2 0.8 -Post Debridement Size (cm) - Depth 0.2 0.8 -Total Square Cm 8.00 0.80 -Wound/Ulcer Outcome Not Healed Not Healed -Ulcer Cleansing Rinsed/ Rinsed/ Irrigated with Irrigated with Saline Saline -Foul Odor after Cleansing No No -Bioengineered Tissue No No -Bleeding Controlled with Pressure Pressure -Offloading No No -Treatment Response Procedure Procedure Tolerated Well Tolerated Well #4. L plantar foot superior -Time 14:19 14:41 -Correct Patient Yes Yes -Correct Side, Site, Position Yes Yes -Correct Procedure Yes Yes -Procedure Performed Yes Yes -Type of Procedure Debridement Debridement -Clinical Debridement Subcutaneous Subcutaneous -Post Debridement Size (cm) - Length 1 1.8 -Post Debridement Size (cm) - Width 0.9 0.8 -Post Debridement Size (cm) - Depth 0.4 0.1 -Total Square Cm 0.9 1.44 -Wound/Ulcer Outcome Not Healed Not Healed -Ulcer Cleansing Rinsed/ Rinsed/ Irrigated with Irrigated with Saline Saline -Foul Odor after Cleansing No No -Bioengineered Tissue No No -Bleeding Controlled with Pressure Pressure -Offloading No No -Treatment Response Procedure Procedure Tolerated Well Tolerated Well Pain Scale: 0-10 Numeric Is Patient Pain Free? Yes Yes Wound debrided: plantar hindfoot and midfoot x 4 Laterality: Left Wound Grade/Stage: grade 1 Type of Debridement: Excisional debridement Anesthesia Used: 5% Lidocaine Gel Depth: in the subcutaneous layer Percentage of wound debrided: 100 Instrument Used: #15 blade Tissue Removed: fibrous, devitalized subcutaneous, biofilm, slough Severity: Fat Layer Exposed Amount of bleeding with debridement: Mild Bleeding Controlled with: Pressure Patient tolerated procedure well - Additional Wound Wound debrided: anterior leg Laterality: Left - g Wound Grade/Stage: grade 1 Type of Debridement: Excisional debridement Anesthesia Used: 5% Lidocaine Gel Depth: in the subcutaneous layer Percentage of wound debrided: 100 Instrument Used: #15 blade Tissue Removed: fibrous, devitalized subcutaneous, biofilm, slough Severity: Fat Layer Exposed Amount of bleeding with debridement: Mild Bleeding Controlled with: Pressure Patient tolerated procedure: Patient tolerated procedure well - Additional Wound Wound debrided: anterior leg Laterality: Right Wound Grade/Stage: grade 1 Type of Debridement: Excisional debridement Anesthesia Used: 5% Lidocaine Gel Depth: in the subcutaneous layer Percentage of wound debrided: 100 Instrument Used: #15 blade Tissue Removed: fibrous, devitalized subcutaneous, biofilm, slough Severity: Fat Layer Exposed Amount of bleeding with debridement: Mild Bleeding Controlled with: Pressure Patient tolerated procedure: Patient tolerated procedure well Assessment/Plan Assessment: See above diagnoses Plan: The patient was seen and examined at the wound center today and was updated on the plan of care. A subcutaneous debridement was performed today. The patient tolerated the procedure well. The patients wound care will consist of: Application of Santyl covered with gauze and postop shoe for offloading. Single layer Tubigrip's. The previous xrays were reviewed without any foreign body, soft tissue emphysema, acute fracture dislocation or Charcot. There is notable small vessel calcification noted. Wound cultures were collected. There was multi-organism growth. Is noted she does not have systemic or local signs of infection today. However, she does have pathogenic bacteria that was identified in the wound bed and I recommend performing a daily medical grade antimicrobial soap wash daily with Brigida-Hex (continue). Baseline bloodwork ordered. I reviewed her CBC which did not demonstrate any leukocytosis and a also her CMP. Her hemoglobin A1c was 6.8%. Her ESR was 116 and C-reactive protein 14.8. Trends will be monitored if infection returns. Vascular studies ordered and she is scheduled to get this test completed tomorrow. Glucerna ordered 3 times a day. Patient educated on the importance of diet on wound healing and instructed to increase protein and vitamin C intake. She is amendable to proceed with a nutrition referral and we agreed this will be performed after we get her other referral started. Patient verbalized understanding. Patient will follow up at wound healing center in one week or sooner if needed. Instructed patient on the importance of offloading and that if she is noncompliant, there is a risk for amputation, infection, or . Did instruct patient that she should not be standing on her feet for long periods of time. Patient has been advised to elevate lower extremities as much as possible. Elevation is to be implemented during daytime hours and legs are to be elevated to heart level, or higher, as much as possible. Prolonged idle sitting has been discouraged. Activity and ambulation has been encouraged. I recommend CAM Walker for the left foot and she was advised she can obtain this at the foot and ankle center. She will be fitted properly for this and additional dual density Plastizote offloading liners will be fabricated wIth pockets to relieve further pressure off of the site. She also asked about diabetic shoes. I recommend her to use extra-depth diabetic shoes with an additional right toe filler and carbon fiber inlay. An order was provided for her to obtain this at [facility] [employer]. Her right foot callus was debrided with a 15 blade without incident. She is reassured no ulcer or infection is noted here. To follow up with vascular surgery as advised. She has abnormal JEFFRY on left between 0.34 and 0.7 with monophasic waveforms. . 2019 [employer] entry: Reviewed today: Pain assessment was completed as 4 out of 10 and her follow-up plan was reviewed and documented. Reviewed 04-15-2019: She denies falling this past year. Reviewed on March 25, 2019: Medication and allergies were reviewed and reconciled, she is a non-tobacco user, she does not have a living will on file and this was discussed, her pneumococcal vaccine is up-to-date, she did have an influenza immunization this season in November 2018. Her blood pressure is elevated at 165/72. I recommend she continues to follow-up with her primary care physician in regards to management. Diet and activity modifications were discussed for education in regards to this.
== END 2019-04-25 23:59 ==
LOC: WC 13:45
PROVIDERS: PCP Family Medicine; Referring Provider Nurse Practitioner Family; Visit Provider Nurse Practitioner Family
DX: E11.621 Type 2 diabetes mellitus with foot ulcer (principal); E11.622 Type 2 diabetes mellitus with other skin ulcer; L97.422 Non-pressure chronic ulcer of left heel and midfoot with fat layer exposed; L97.822 Non-pressure chronic ulcer of other part of left lower leg with fat layer exposed; L97.812 Non-pressure chronic ulcer of other part of right lower leg with fat layer exposed; R60.0 Localized edema; E11.42 Type 2 diabetes mellitus with diabetic polyneuropathy; L84 Corns and callosities; E11.51 Type 2 diabetes mellitus with diabetic peripheral angiopathy without gangrene; E11.22 Type 2 diabetes mellitus with diabetic chronic kidney disease; N18.6 End stage renal disease; Z99.2 Dependence on renal dialysis; E66.9 Obesity, unspecified; Z79.01 Long term (current) use of anticoagulants; I12.0 Hypertensive chronic kidney disease with stage 5 chronic kidney disease or end stage renal disease; E78.5 Hyperlipidemia, unspecified; Z89.421 Acquired absence of other right toe(s)
CPT/HCPCS: 11042; 11045

== ENCOUNTER 2019-05-06 14:45 | Outpatient (RCR) | payer MEDICARE, MEDICAID, SELFPAY ==
[2019-04-26 00:57] VITALS: BP 158/55; PULSE 71; RESP 18; TEMP 36.6
[2019-04-29 13:54] VITALS: BP 160/63; PULSE 75; RESP 16; TEMP 36.4; BMI 38.4
--- NOTE | 2019-04-29 21:32 | PCM.WC.PN ---
(1) Type 2 diabetes mellitus with diabetic polyneuropathy Status: Chronic Code(s): E11.42 - Type 2 diabetes mellitus with diabetic polyneuropathy (2) Chronic ulcer of left foot with fat layer exposed Status: Chronic Code(s): L97.522 - Non-pressure chronic ulcer of other part of left foot with fat layer exposed (3) Other specified peripheral vascular diseases Status: Suspected Code(s): I73.89 - Other specified peripheral vascular diseases (4) Delayed wound healing Status: Chronic Code(s): T14.8XXD - Other injury of unspecified body region, subsequent encounter (5) Ulcer of right lower extremity with fat layer exposed Status: Resolved Code(s): L97.912 - Non-pressure chronic ulcer of unspecified part of right lower leg with fat layer exposed (6) Ulcer of left lower extremity with fat layer exposed Status: Chronic Code(s): L97.922 - Non-pressure chronic ulcer of unspecified part of left lower leg with fat layer exposed Type of Wound Date of Service: 04/29/19 Chief Complaint: 63-year-old white female here for diabetic ulcers to left foot x1 month. History of Wound: This is a 63-year-old white female who presents to the wound healing center today with complaint of nonhealing diabetic foot ulcers on her left plantar surface. She is also following up for wounds to the front of both legs that she relates has always been there on and off. She has a past medical history significant for end-stage CKD on dialysis 3 times a week, uncontrolled type 2 diabetes mellitus with long-term insulin use, obesity, PVD, hypertension, hyperlipidemia, malnutrition, and history of amputation of the right transmetatarsal. In the recent past, she has completed a course of oral antibiotics. She is also scheduled to see vascular surgeon, Dr. Vogel on May 12. She also unfortunately reports she had a heart attack last and was hospitalized at an outside facility. She is now on new anticoagulation medication. Progress of Wound: Stable and devitalized left foot. Right leg ulcer healed. Left leg ulcers - Physical Exam Vital Signs Temp Pulse Resp BP 97.5 F L 75 16 160/63 H 04/29/19 13:54 04/29/19 13:54 04/29/19 13:54 04/29/19 13:54 General: Alert, Oriented x3, Cooperative, No apparent distress HEENT: Atraumatic Extremities: No cyanosis, Capillary Refill Less than 3 Seconds, No Calf Tenderness, Diminished Peripheral Pulses, Edema Skin: Ulcer/ Wound - No purulence, erythema, streaking, odor, infection. The ulcer beds to the plantar left foot are fibronecrotic and there is no probe to bone. There is full epithelialization to the prior eschar abrasion and cluster site to the right leg. There is still cluster of ulcers to the anterior left leg. Her skin in general is hairless atrophic and hyperpigmented Wound Measurements and Assessment WC - Nurse 1 - General Ulcer Measurement Start: 04/29/19 13:54 Freq: Status: Active Protocol: Activity Type Activity Date Activity User E-Sign Co-Sign Detail Recorded Client Recorded Date Recorded By Document 04/29/19 13:54 [facility] [id number] 04/29/19 14:17 [facility] 04/29/19 13:54 Wound Center Nurse 1 [Ulcer Assessment] #9 L Heel [place] -Combined with other wound No -Current Size (cm) - Length 0.8 -Current Size (cm) - Width 0.4 -Current Size (cm) - Depth 0.2 -Total Square Cm 0.32 -Tunneling No -Undermining/Tunneling Yes -Undermining/Tunneling Starts (O' 7 clock) -Undermining/Tunneling Ends (O'clock) 2 -Maximum Distance (cm) 0.1 -Circular Undermining No -Exudate Amt Small -Exudate Type Serosanguineous -Wound Margin Thickened -Granulation Amt Medium (34-66%) -Granulation Quality Overland -Slough/Fibrin Yes -Necrosis Amt Large (67-100%) -Necrotic Tissue Type Adherent Slough -Structure Exposed N/A -Texture (Georgina-wound Skin Appearance) Callus,Scarring -Moisture (Georgina-wound Skin Appearance Maceration ) -Color (Georgina-wound Skin Appearance) Assessed -Temperature (Georgina-wound Skin No Abnormality Appearance) (Pt Warm) -Tenderness on Palpation (Georgina-wound No Skin Appearance) -Ulcer Cleansing Wound Cleanser -Foul Odor after Cleansing No -Anesthetic Used 4% Lidocaine Solution #8 L Lat Foot inf -Combined with other wound No -Current Size (cm) - Length 1.5 -Current Size (cm) - Width 0.7 -Current Size (cm) - Depth 0.1 -Total Square Cm 1.05 -Tunneling No -Undermining/Tunneling No -Circular Undermining No -Exudate Amt None Present -Wound Margin Flat & Intact -Granulation Amt Small (1-33%) -Necrosis Amt Large (67-100%) -Necrotic Tissue Type Adherent Slough -Structure Exposed N/A -Texture (Georgina-wound Skin Appearance) Assessed, Scarring -Moisture (Georgina-wound Skin Appearance Dry/Scaly ) -Color (Georgina-wound Skin Appearance) No Abnormality -Temperature (Georgina-wound Skin No Abnormality Appearance) (Pt Warm) -Tenderness on Palpation (Georgina-wound No Skin Appearance) -Ulcer Cleansing Wound Cleanser -Foul Odor after Cleansing No -Anesthetic Used 4% Lidocaine Solution #7 L Alexander Cluster -Combined with other wound No -Current Size (cm) - Length 7.3 -Current Size (cm) - Width 7.8 -Current Size (cm) - Depth 0.1 -Total Square Cm 56.94 -Tunneling No -Undermining/Tunneling No -Circular Undermining No -Exudate Amt None Present -Wound Margin Flat & Intact -Necrosis Amt Small (1-33%) -Necrotic Tissue Type Adherent Slough -Structure Exposed N/A -Texture (Georgina-wound Skin Appearance) Assessed -Moisture (Georgina-wound Skin Appearance Dry/Scaly ) -Color (Georgina-wound Skin Appearance) Assessed -Temperature (Georgina-wound Skin No Abnormality Appearance) (Pt Warm) -Tenderness on Palpation (Georgina-wound No Skin Appearance) -Ulcer Cleansing Wound Cleanser -Foul Odor after Cleansing No -Anesthetic Used 4% Lidocaine Solution #6 RShin cluster -Combined with other wound No -Current Size (cm) - Length 7.7 -Current Size (cm) - Width 12.3 -Current Size (cm) - Depth 0.1 -Total Square Cm 94.71 -Tunneling No -Undermining/Tunneling No -Circular Undermining No -Exudate Amt None Present -Wound Margin Flat & Intact -Granulation Amt Small (1-33%) -Granulation Quality Overland -Slough/Fibrin Yes -Necrosis Amt Small (1-33%) -Necrotic Tissue Type Adherent Slough -Structure Exposed N/A -Texture (Georgina-wound Skin Appearance) Assessed -Moisture (Georgina-wound Skin Appearance Assessed,Dry/ ) Scaly -Color (Georgina-wound Skin Appearance) Assessed -Temperature (Georgina-wound Skin No Abnormality Appearance) (Pt Warm) -Tenderness on Palpation (Georgina-wound No Skin Appearance) -Ulcer Cleansing Wound Cleanser -Foul Odor after Cleansing No -Anesthetic Used 4% Lidocaine Solution #5 L plantar foot inferior -Combined with other wound No -Current Size (cm) - Length 0.2 -Current Size (cm) - Width 0.9 -Current Size (cm) - Depth 0.4 -Total Square Cm 0.18 -Tunneling No -Undermining/Tunneling Yes -Undermining/Tunneling Starts (O' 10 clock) -Undermining/Tunneling Ends (O'clock) 2 -Maximum Distance (cm) 0.4 -Exudate Amt Small -Exudate Type Serosanguineous -Wound Margin Distinct, Outline Attached -Granulation Amt Medium (34-66%) -Slough/Fibrin Yes -Necrosis Amt Large (67-100%) -Necrotic Tissue Type Adherent Slough -Structure Exposed N/A -Texture (Georgina-wound Skin Appearance) Assessed,Callus -Moisture (Georgina-wound Skin Appearance Assessed ) -Color (Georgina-wound Skin Appearance) Assessed -Temperature (Georgina-wound Skin No Abnormality Appearance) (Pt Warm) -Tenderness on Palpation (Georgina-wound No Skin Appearance) -Foul Odor after Cleansing No -Anesthetic Used 4% Lidocaine Solution #4. L plantar foot superior -Combined with other wound No -Current Size (cm) - Length 0.8 -Current Size (cm) - Width 0.4 -Current Size (cm) - Depth 0.6 -Total Square Cm 0.32 -Tunneling No -Undermining/Tunneling Yes -Undermining/Tunneling Starts (O' 12 clock) -Undermining/Tunneling Ends (O'clock) 12 -Maximum Distance (cm) 0.5 -Circular Undermining Yes -Exudate Amt Small -Exudate Type Serosanguineous -Wound Margin Thickened -Granulation Amt Small (1-33%) -Granulation Quality Over[place] -Slough/Fibrin Yes -Necrosis Amt Large (67-100%) -Necrotic Tissue Type Adherent Slough -Structure Exposed N/A -Texture (Georgina-wound Skin Appearance) Callus,Scarring -Color (Georgina-wound Skin Appearance) Assessed, Erythema -Temperature (Georgina-wound Skin No Abnormality Appearance) (Pt Warm) -Tenderness on Palpation (Georgina-wound No Skin Appearance) -Ulcer Cleansing Wound Cleanser -Foul Odor after Cleansing No -Anesthetic Used 4% Lidocaine Solution [Edema Assessment] -Lower Limb Edema Present Yes -Right Calf (cm) 40.8 -Right Ankle (cm) 24.8 -Left Calf (cm) 42 -Left Ankle (cm) 26 WC - Nurse 2 - General Ulcer CM Notes Start: 04/29/19 13:54 Freq: Status: Active Protocol: Activity Type Activity Date Activity User E-Sign Co-Sign Detail Recorded Client Recorded Date Recorded By Document 04/29/19 14:32 [facility] [id number] 04/29/19 14:41 [facility] 04/29/19 14:32 Wound Center Nurse 2 [Procedure/Treatment] #9 L Heel [place]lline -Time 14:34 -Correct Patient Yes -Correct Side, Site, Position Yes -Correct Procedure Yes -Procedure Performed Yes -Type of Procedure Debridement -Clinical Debridement Subcutaneous -Post Debridement Size (cm) - Length 0.8 -Post Debridement Size (cm) - Width 0.5 -Post Debridement Size (cm) - Depth 0.2 -Total Square Cm 0.40 -Wound/Ulcer Outcome Not Healed -Ulcer Cleansing Rinsed/ Irrigated with Saline -Foul Odor after Cleansing No -Bioengineered Tissue No -Bleeding Controlled with Pressure -Offloading Yes -Type of Offloading Surgical Shoe -Treatment Response Procedure Tolerated Well #8 L Lat Foot inf -Time 14:35 -Correct Patient Yes -Correct Side, Site, Position Yes -Correct Procedure Yes -Procedure Performed Yes -Type of Procedure Debridement -Clinical Debridement Subcutaneous -Post Debridement Size (cm) - Length 1.5 -Post Debridement Size (cm) - Width 7.9 -Post Debridement Size (cm) - Depth 0.1 -Total Square Cm 11.85 -Wound/Ulcer Outcome Not Healed -Ulcer Cleansing Rinsed/ Irrigated with Saline -Foul Odor after Cleansing No -Bioengineered Tissue No -Bleeding Controlled with Pressure -Offloading Yes -Type of Offloading Surgical Shoe -Treatment Response Procedure Tolerated Well #7 L Alexander Cluster -Time 14:35 -Correct Patient Yes -Correct Side, Site, Position Yes -Correct Procedure Yes -Procedure Performed Yes -Type of Procedure Debridement -Clinical Debridement Subcutaneous -Post Debridement Size (cm) - Length 7.4 -Post Debridement Size (cm) - Width 7.8 -Post Debridement Size (cm) - Depth 0.1 -Total Square Cm 57.72 -Wound/Ulcer Outcome Not Healed -Ulcer Cleansing Rinsed/ Irrigated with Saline -Foul Odor after Cleansing No -Bioengineered Tissue No -Bleeding Controlled with Pressure -Offloading No -Treatment Response Procedure Tolerated Well #6 RShin cluster -Time 14:35 -Correct Patient Yes -Correct Side, Site, Position Yes -Correct Procedure Yes -Procedure Performed Yes -Type of Procedure Debridement -Clinical Debridement Subcutaneous -Post Debridement Size (cm) - Length 7.8 -Post Debridement Size (cm) - Width 12.4 -Post Debridement Size (cm) - Depth 0.1 -Total Square Cm 96.72 -Wound/Ulcer Outcome Not Healed -Ulcer Cleansing Rinsed/ Irrigated with Saline -Foul Odor after Cleansing No -Bioengineered Tissue No -Bleeding Controlled with Pressure -Offloading No -Treatment Response Procedure Tolerated Well #5 L plantar foot inferior -Time 14:36 -Correct Patient Yes -Correct Side, Site, Position Yes -Correct Procedure Yes -Procedure Performed Yes -Type of Procedure Debridement -Clinical Debridement Subcutaneous -Post Debridement Size (cm) - Length 0.2 -Post Debridement Size (cm) - Width 1 -Post Debridement Size (cm) - Depth 0.4 -Total Square Cm 0.2 -Wound/Ulcer Outcome Not Healed -Ulcer Cleansing Rinsed/ Irrigated with Saline -Foul Odor after Cleansing No -Bioengineered Tissue No -Bleeding Controlled with Pressure -Offloading No -Treatment Response Procedure Tolerated Well #4. L plantar foot superior -Time 14:36 -Correct Patient Yes -Correct Side, Site, Position Yes -Correct Procedure Yes -Procedure Performed Yes -Type of Procedure Debridement -Clinical Debridement Subcutaneous -Post Debridement Size (cm) - Length 0.8 -Post Debridement Size (cm) - Width 0.5 -Post Debridement Size (cm) - Depth 0.6 -Total Square Cm 0.40 -Wound/Ulcer Outcome Not Healed -Ulcer Cleansing Rinsed/ Irrigated with Saline -Foul Odor after Cleansing No -Bioengineered Tissue No -Bleeding Controlled with Pressure -Offloading Yes -Type of Offloading Surgical Shoe -Treatment Response Procedure Tolerated Well [See Physician Procedure note for Specifics] Pain Scale: 0-10 Numeric [Pain] -Is Patient Pain Free? Yes Musculoskeletal: No Tenderness to Palpation of Joints or Extremities, Muscle Wasting Neurological: Sensory exam intact to light touch and pain Psych/Mental Status: Normal Affect, Appropriate Debridement Note Post-Debridement Measurements/Treatment WC - Nurse 2 - General Ulcer CM Notes Start: 04/29/19 13:54 Freq: Status: Active Protocol: Activity Type Activity Date Activity User E-Sign Co-Sign Detail Recorded Client Recorded Date Recorded By Document 04/29/19 14:32 [facility] [id number] 04/29/19 14:41 [facility] 04/29/19 14:32 Wound Center Nurse 2 #9 L Heel [place]ine -Time 14:34 -Correct Patient Yes -Correct Side, Site, Position Yes -Correct Procedure Yes -Procedure Performed Yes -Type of Procedure Debridement -Clinical Debridement Subcutaneous -Post Debridement Size (cm) - Length 0.8 -Post Debridement Size (cm) - Width 0.5 -Post Debridement Size (cm) - Depth 0.2 -Total Square Cm 0.40 -Wound/Ulcer Outcome Not Healed -Ulcer Cleansing Rinsed/ Irrigated with Saline -Foul Odor after Cleansing No -Bioengineered Tissue No -Bleeding Controlled with Pressure -Offloading Yes -Type of Offloading Surgical Shoe -Treatment Response Procedure Tolerated Well #8 L Lat Foot inf -Time 14:35 -Correct Patient Yes -Correct Side, Site, Position Yes -Correct Procedure Yes -Procedure Performed Yes -Type of Procedure Debridement -Clinical Debridement Subcutaneous -Post Debridement Size (cm) - Length 1.5 -Post Debridement Size (cm) - Width 7.9 -Post Debridement Size (cm) - Depth 0.1 -Total Square Cm 11.85 -Wound/Ulcer Outcome Not Healed -Ulcer Cleansing Rinsed/ Irrigated with Saline -Foul Odor after Cleansing No -Bioengineered Tissue No -Bleeding Controlled with Pressure -Offloading Yes -Type of Offloading Surgical Shoe -Treatment Response Procedure Tolerated Well #7 L Alexander Cluster -Time 14:35 -Correct Patient Yes -Correct Side, Site, Position Yes -Correct Procedure Yes -Procedure Performed Yes -Type of Procedure Debridement -Clinical Debridement Subcutaneous -Post Debridement Size (cm) - Length 7.4 -Post Debridement Size (cm) - Width 7.8 -Post Debridement Size (cm) - Depth 0.1 -Total Square Cm 57.72 -Wound/Ulcer Outcome Not Healed -Ulcer Cleansing Rinsed/ Irrigated with Saline -Foul Odor after Cleansing No -Bioengineered Tissue No -Bleeding Controlled with Pressure -Offloading No -Treatment Response Procedure Tolerated Well #6 RShin cluster -Time 14:35 -Correct Patient Yes -Correct Side, Site, Position Yes -Correct Procedure Yes -Procedure Performed Yes -Type of Procedure Debridement -Clinical Debridement Subcutaneous -Post Debridement Size (cm) - Length 7.8 -Post Debridement Size (cm) - Width 12.4 -Post Debridement Size (cm) - Depth 0.1 -Total Square Cm 96.72 -Wound/Ulcer Outcome Not Healed -Ulcer Cleansing Rinsed/ Irrigated with Saline -Foul Odor after Cleansing No -Bioengineered Tissue No -Bleeding Controlled with Pressure -Offloading No -Treatment Response Procedure Tolerated Well #5 L plantar foot inferior -Time 14:36 -Correct Patient Yes -Correct Side, Site, Position Yes -Correct Procedure Yes -Procedure Performed Yes -Type of Procedure Debridement -Clinical Debridement Subcutaneous -Post Debridement Size (cm) - Length 0.2 -Post Debridement Size (cm) - Width 1 -Post Debridement Size (cm) - Depth 0.4 -Total Square Cm 0.2 -Wound/Ulcer Outcome Not Healed -Ulcer Cleansing Rinsed/ Irrigated with Saline -Foul Odor after Cleansing No -Bioengineered Tissue No -Bleeding Controlled with Pressure -Offloading No -Treatment Response Procedure Tolerated Well #4. L plantar foot superior -Time 14:36 -Correct Patient Yes -Correct Side, Site, Position Yes -Correct Procedure Yes -Procedure Performed Yes -Type of Procedure Debridement -Clinical Debridement Subcutaneous -Post Debridement Size (cm) - Length 0.8 -Post Debridement Size (cm) - Width 0.5 -Post Debridement Size (cm) - Depth 0.6 -Total Square Cm 0.40 -Wound/Ulcer Outcome Not Healed -Ulcer Cleansing Rinsed/ Irrigated with Saline -Foul Odor after Cleansing No -Bioengineered Tissue No -Bleeding Controlled with Pressure -Offloading Yes -Type of Offloading Surgical Shoe -Treatment Response Procedure Tolerated Well Pain Scale: 0-10 Numeric Is Patient Pain Free? Yes Wound debrided: plantar foot, anterior leg Laterality: Left Wound Grade/Stage: grade 1 Type of Debridement: Excisional debridement Anesthesia Used: 5% Lidocaine Gel Depth: in the subcutaneous layer Percentage of wound debrided: 100 - Plantar foot foot, 50 - Anterior left leg Instrument Used: #15 blade Tissue Removed: fibrous, devitalized subcutaneous, biofilm, slough Severity: Fat Layer Exposed Amount of bleeding with debridement: Mild Bleeding Controlled with: Pressure Patient tolerated procedure well Assessment/Plan Assessment: See above diagnoses Plan: The patient was seen and examined at the wound center today and was updated on the plan of care. A subcutaneous debridement was performed today as noted in the clinical panel. The patient tolerated the procedure well. The patients wound care will consist of: Application of Santyl covered with gauze and postop shoe for offloading. Single layer Tubigrip's. The previous xrays were reviewed without any foreign body, soft tissue emphysema, acute fracture dislocation or Charcot. There is notable small vessel calcification noted. Wound cultures were collected. There was multi-organism growth. Is noted she does not have systemic or local signs of infection today. However, she does have pathogenic bacteria that was identified in the wound bed and I recommend performing a daily medical grade antimicrobial soap wash daily with Brigida-Hex (continue). Baseline bloodwork ordered. I reviewed her CBC which did not demonstrate any leukocytosis and a also her CMP. Her hemoglobin A1c was 6.8%. Her ESR was 116 and C-reactive protein 14.8. Trends will be monitored if infection returns. Vascular studies ordered and she is scheduled to get this test completed tomorrow. Glucerna ordered 3 times a day. Patient educated on the importance of diet on wound healing and instructed to increase protein and vitamin C intake. She is amendable to proceed with a nutrition referral and we agreed this will be performed after we get her other referral started. Patient verbalized understanding. Patient will follow up at wound healing center in one week or sooner if needed. Instructed patient on the importance of offloading and that if she is noncompliant, there is a risk for amputation, infection, or . Did instruct patient that she should not be standing on her feet for long periods of time. Patient has been advised to elevate lower extremities as much as possible. Elevation is to be implemented during daytime hours and legs are to be elevated to heart level, or higher, as much as possible. Prolonged idle sitting has been discouraged. Activity and ambulation has been encouraged. I recommend CAM Walker for the left foot and she was advised she can obtain this at the foot and ankle center. She will be fitted properly for this and additional dual density Plastizote offloading liners will be fabricated wIth pockets to relieve further pressure off of the site. She also asked about diabetic shoes. I recommend her to use extra-depth diabetic shoes with an additional right toe filler and carbon fiber inlay. An order was provided for her to obtain this at [facility]. Her right foot callus was debrided with a 15 blade without incident. She is reassured no ulcer or infection is noted here. To follow up with vascular surgery as advised. She is scheduled see Dr. Vogel on May 13, 2019. She has abnormal JEFFRY on left between 0.34 and 0.7 with monophasic waveforms. It is noted he had a recent heart attack last week and was hospitalized. 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 . 2020 [place] entry: Reviewed today: Medication reconciliation was performed. Reviewed 04-15-2019: She denies falling this past year. Reviewed on March 25, 2019: Medication and allergies were reviewed and reconciled, she is a non-tobacco user, she does not have a living will on file and this was discussed, her pneumococcal vaccine is up-to-date, she did have an influenza immunization this season in November 2018. Her blood pressure is elevated at 165/72. I recommend she continues to follow-up with her primary care physician in regards to management. Diet and activity modifications were discussed for education in regards to this.
== END 2019-05-26 23:59 ==
LOC: WC 14:45
PROVIDERS: PCP Family Medicine; Referring Provider Nurse Practitioner Family; Visit Provider Nurse Practitioner Family
DX: E11.621 Type 2 diabetes mellitus with foot ulcer (principal); E11.42 Type 2 diabetes mellitus with diabetic polyneuropathy; L97.522 Non-pressure chronic ulcer of other part of left foot with fat layer exposed; E11.22 Type 2 diabetes mellitus with diabetic chronic kidney disease; E11.65 Type 2 diabetes mellitus with hyperglycemia; E78.5 Hyperlipidemia, unspecified; I12.0 Hypertensive chronic kidney disease with stage 5 chronic kidney disease or end stage renal disease; N18.6 End stage renal disease; Z99.2 Dependence on renal dialysis; I25.2 Old myocardial infarction; E11.622 Type 2 diabetes mellitus with other skin ulcer; L97.922 Non-pressure chronic ulcer of unspecified part of left lower leg with fat layer exposed
CPT/HCPCS: 11042; 11045

== ENCOUNTER → 2019-12-15 | Outpatient (CLI) | payer MEDICARE, MEDICAID, SELFPAY ==
[2019-12-15 13:51] VITALS: BMI 30.5
[2019-12-15 14:19] LABS: Absolute Lymphocyte Count 1.62 X10^3/uL (0.83-4.51); Absolute Neutrophil Count 4.4 X10^3/uL (2.0-7.7); Basophil# 0.05 X10^3/uL; Basophil% 0.7 % (0-1); Eosinophil# 0.16 X10^3/uL; Eosinophils% 2.4 % (0-5); Hematocrit 34.1 % (37-47); Lymphocyte # 1.62 X10^3/ul (4.0); Mean Corp Hgb Conc 32.3 g/dL (32-36); Mean Corpuscular Hgb 29.6 pg (27.0-32.0); Mean Corpuscular Volume 91.9 fL (81-99); Mean Platelet Vol. 9.6 fl (6.2-12.0); Monocyte# 0.48 X10^3/uL; Monocyte% 7.1 % (0-10); NRBC Flagged by Analyzer 0 % (0-5); Neutrophil # 4.43 X10^3/uL (2.7-7.7); Neutrophil % 65.5 % (47-70); Platelet Count 247 K/mm3 (150-450); RBC Distribution Width CV 16.1 % (11.6-14.6); RBC Distribution Width SD 54.2 fl (35.1-43.9); Red Blood Count 3.71 M/mm3 (4.2-5.4); White Blood Count 6.8 K/mm3 (4.4-11.0)
[2019-12-15 14:36] LABS: ALB/GLOB Ratio 0.7 RATIO (0.9-2.4); AST(SGOT) 18 U/L (15-37); Alanine Aminotransfer ALT/SGPT 18 U/L (13-56); Albumin, Serum 3.5 g/dL (3.2-5.0); Alkaline Phosphatase 107 U/L (45-117); Anion Gap 6 (5-15); BUN 37 mg/dL (7-18); BUN/Creat Ratio 6.3 RATIO (10-20); Calcium,Total 9.9 mg/dL (8.5-10.1); Chloride 95 mmol/L (98-107); Creatinine, Serum 5.88 mg/dL (0.55-1.02); EST Glomerular Filtration Rate 8 mL/min (>60); Est Glom Filt Rate - Afr Amer 9 mL/min (>60); Globulin 4.8 g/dL (2.2-4.2); Glucose 115 mg/dL (74-106); Potassium 3.6 mmol/L (3.5-5.1); Protein, Total 8.3 g/dL (6.4-8.2); Sodium Level 136 mmol/L (136-145)
== END | disposition home or self-care (01) ==
LOC: PAVLAB 14:06
PROVIDERS: PCP Family Medicine; Referring Provider Surgery; Visit Provider Surgery
DX: Z01.818 Encounter for other preprocedural examination (principal)
CPT/HCPCS: 36415; 80053; 85025

== ENCOUNTER → 2020-08-23 12:52 | Outpatient (CLI) | payer MEDICARE, MEDICAID, SELFPAY ==
[2019-12-21 15:39] VITALS: BMI 30.5
--- NOTE | 2020-08-23 12:55 | CDU_ITS ---
Reason For Study: bruit Rt. Velocities/BP Lt. Velocities/BP Prox CCA 68.2/12.1 cm/sec. Prox CCA 81.4/12.6 cm/sec. Mid CCA 59.1/13.4 cm/sec. Mid CCA 69.1/12.6 cm/sec. Dist CCA 70.8/12.1 cm/sec. Dist CCA 51.9/6.5 cm/sec. Prox ICA 176.2/35.8 cm/sec. Prox ICA 82.7/17.6 cm/sec. Mid ICA 147.7/20.4 cm/sec. Mid ICA 72.8/16.3 cm/sec. Dist ICA 134.5/31.4 cm/sec. Dist ICA 82.7/18.8 cm/sec. Rt. ICA/CCA = 3.0. Lt. ICA/CCA = 1.2. Prox ECA 107.3 cm/sec. Prox ECA 124.7 cm/sec. Rt. Vert. 66.7/9.0 cm/sec. Lt. Vert. 56.9/16.3 cm/sec. Right Extracranial There is heterogeneous, irregular atherosclerotic plaque noted in the right common carotid artery. There is heterogeneous, irregular atherosclerotic plaque noted in the right internal carotid artery. The atherosclerotic plaque causes acoustic shadowing. There is heterogeneous, irregular atherosclerotic plaque noted in the right external carotid artery. Antegrade flow is noted in the right vertebral artery. Left Extracranial There is heterogeneous, irregular atherosclerotic plaque noted in the left common carotid artery. There is heterogeneous, irregular atherosclerotic plaque noted in the left internal carotid artery. There is heterogeneous, irregular atherosclerotic plaque noted in the left external carotid artery. Antegrade flow is noted in the left vertebral artery. Procedure Carotid Duplex [id number]. This is a Carotid Duplex examination using B-mode, color flow and specral Doppler. The exam was diagnostic. Difficult study. Pt scanned while sitting in a wheelchair. Exam performed in department. VL/Carotid Duplex Ultrasound Interpretation Summary Moderate (50-69%) stenosis right extracranial internal carotid. Mild (<50%) emil nosis left extracranial internal carotid. Flow within the vertebral arteries is antegrade bilaterally. Acoustic shadowing is present in the proximal internal carotid arteries bilaterally, whi ch obscures visualization of the arterial lumens. Therefore, the degree of stenosis in the internal carotid arteries may exceed that which is estimated based upon velocity criteria alone. Therefore, clinical correlation is advised, and alternative imaging may be helpful. Ordering Physician: Ford Matthews Performed By: Juanito Reyes RVT
== END ==
PROVIDERS: PCP Family Medicine; Referring Provider Family Medicine; Visit Provider Family Medicine
DX: R09.89 Other specified symptoms and signs involving the circulatory and respiratory systems (principal)
CPT/HCPCS: 93880

== ENCOUNTER → 2021-06-13 | Outpatient (REF) | payer SELFPAY ==
[2021-06-13 08:07] LABS: Absolute Lymphocyte Count 1.65 X10^3/uL (0.83-4.51); Absolute Neutrophil Count 7.2 X10^3/uL (2.0-7.7); Basophil# 0.03 X10^3/uL; Basophil% 0.3 % (0-1); Eosinophil# 0.01 X10^3/uL; Eosinophils% 0.1 % (0-5); Hematocrit 30.3 % (37-47); Hemoglobin 9.5 g/dL (12.0-15.0); Lymphocyte # 1.65 X10^3/ul (0.83-4.51); Lymphocyte % 17.6 % (19-41); Mean Corp Hgb Conc 31.4 g/dL (32-36); Mean Corpuscular Hgb 27.4 pg (27.0-32.0); Mean Corpuscular Volume 87.3 fL (81-99); Mean Platelet Vol. 9.6 fl (6.2-12.0); Monocyte# 0.43 X10^3/uL; Monocyte% 4.6 % (0-10); NRBC Flagged by Analyzer 0 % (0-5); Neutrophil # 7.23 X10^3/uL (2.7-7.7); Neutrophil % 76.9 % (47-70); POSITIVE MORPHOLOGY YES; Platelet Count 401 K/mm3 (150-450); RBC Distribution Width CV 20.6 % (11.6-14.6); RBC Distribution Width SD 65.7 fl (35.1-43.9); Red Blood Count 3.47 M/mm3 (4.2-5.4); White Blood Count 9.4 K/mm3 (4.4-11.0)
[2021-06-13 08:20] LABS: Vancomycin, Trough Level 6.8 ug/mL (5.0-15.0)
[2021-06-13 08:27] LABS: Anion Gap 11 (5-15); BUN 85 mg/dL (7-18); BUN/Creat Ratio 13.9 RATIO (10-20); Calcium,Total 9.3 mg/dL (8.5-10.1); Chloride 98 mmol/L (98-107); Creatinine, Serum 6.11 mg/dL (0.55-1.02); EST Glomerular Filtration Rate 7 mL/min (>60); Est Glom Filt Rate - Afr Amer 9 mL/min (>60); Glucose 127 mg/dL (74-106); Potassium 6.4 mmol/L (3.5-5.1); Sodium Level 132 mmol/L (136-145)
[2021-06-13 08:29] LABS: Differential Indicated SCAN CRITERIA MET
[2021-06-13 09:21] LABS: Anisocytosis 1+; Hypochromasia 1+; Ovalocyte 1+
[2021-06-14 05:24] LABS: AST(SGOT) 13 U/L (15-37); Alanine Aminotransfer ALT/SGPT 16 U/L (13-56); Albumin, Serum 3.2 g/dL (3.2-5.0); Alkaline Phosphatase 113 U/L (45-117); Bilirubin, Direct 0.15 mg/dL (0.00-0.30); Globulin 4.1 g/dL (2.2-4.2); Protein, Total 7.3 g/dL (6.4-8.2)
[2021-06-14 07:50] LABS: Hemoglobin A1c 4.8 % (3.8-5.6)
== END | disposition home or self-care (01) ==
LOC: OLS.SW1020 06:00
PROVIDERS: Visit Provider Family Medicine
DX: E11.40 Type 2 diabetes mellitus with diabetic neuropathy, unspecified (principal); Z99.2 Dependence on renal dialysis; E11.22 Type 2 diabetes mellitus with diabetic chronic kidney disease; N18.6 End stage renal disease
CPT/HCPCS: 36415; 80048; 80076; 80177; 80202; 83036; 85025

== ENCOUNTER → 2021-06-20 | Outpatient (REF) | payer SELFPAY ==
[2021-06-20 08:06] LABS: Absolute Lymphocyte Count 1.88 X10^3/uL (0.83-4.51); Absolute Neutrophil Count 2.2 X10^3/uL (2.0-7.7); Basophil# 0.03 X10^3/uL; Basophil% 0.6 % (0-1); Eosinophil# 0.17 X10^3/uL; Eosinophils% 3.6 % (0-5); Hematocrit 30.4 % (37-47); Hemoglobin 9.6 g/dL (12.0-15.0); Lymphocyte # 1.88 X10^3/ul (0.83-4.51); Lymphocyte % 40.2 % (19-41); Mean Corp Hgb Conc 31.6 g/dL (32-36); Mean Corpuscular Hgb 27.7 pg (27.0-32.0); Mean Corpuscular Volume 87.6 fL (81-99); Mean Platelet Vol. 10.3 fl (6.2-12.0); Monocyte# 0.43 X10^3/uL; Monocyte% 9.2 % (0-10); NRBC Flagged by Analyzer 0 % (0-5); Neutrophil # 2.16 X10^3/uL (2.7-7.7); Neutrophil % 46.2 % (47-70); Platelet Count 359 K/mm3 (150-450); RBC Distribution Width CV 18.5 % (11.6-14.6); RBC Distribution Width SD 59.5 fl (35.1-43.9); Red Blood Count 3.47 M/mm3 (4.2-5.4); White Blood Count 4.7 K/mm3 (4.4-11.0)
[2021-06-20 08:14] LABS: Anion Gap 12 (5-15); BUN 78 mg/dL (7-18); BUN/Creat Ratio 12.4 RATIO (10-20); Calcium,Total 9.6 mg/dL (8.5-10.1); Chloride 96 mmol/L (98-107); Creatinine, Serum 6.27 mg/dL (0.55-1.02); EST Glomerular Filtration Rate 7 mL/min (>60); Est Glom Filt Rate - Afr Amer 9 mL/min (>60); Glucose 83 mg/dL (74-106); Potassium 5.2 mmol/L (3.5-5.1); Sodium Level 135 mmol/L (136-145)
[2021-06-24 09:39] LABS: KEPPRA (LEVETIRACETAM) 19.6 ug/mL (10.0-40.0)
== END | disposition home or self-care (01) ==
LOC: OLS.SW1020 05:00
PROVIDERS: Visit Provider Family Medicine
DX: I10 Essential (primary) hypertension (principal); E11.9 Type 2 diabetes mellitus without complications; Z79.899 Other long term (current) drug therapy
CPT/HCPCS: 36415; 80048; 80177; 85025

== ENCOUNTER → 2021-06-27 | Outpatient (REF) | payer MEDICARE, MEDICAID, SELFPAY ==
[2021-06-27 08:20] LABS: Absolute Lymphocyte Count 1.96 X10^3/uL (0.83-4.51); Absolute Neutrophil Count 3.6 X10^3/uL (2.0-7.7); Basophil# 0.04 X10^3/uL; Basophil% 0.6 % (0-1); Eosinophil# 0.14 X10^3/uL; Eosinophils% 2.2 % (0-5); Hematocrit 27.5 % (37-47); Hemoglobin 8.5 g/dL (12.0-15.0); Lymphocyte # 1.96 X10^3/ul (0.83-4.51); Lymphocyte % 31.1 % (19-41); Mean Corp Hgb Conc 30.9 g/dL (32-36); Mean Corpuscular Hgb 27.9 pg (27.0-32.0); Mean Corpuscular Volume 90.2 fL (81-99); Mean Platelet Vol. 11.1 fl (6.2-12.0); Monocyte# 0.54 X10^3/uL; Monocyte% 8.6 % (0-10); NRBC Flagged by Analyzer 0 % (0-5); Neutrophil % 57.2 % (47-70); Platelet Count 276 K/mm3 (150-450); RBC Distribution Width SD 59.3 fl (35.1-43.9); Red Blood Count 3.05 M/mm3 (4.2-5.4); White Blood Count 6.3 K/mm3 (4.4-11.0)
[2021-06-27 09:19] LABS: Anion Gap 13 (5-15); BUN 88 mg/dL (7-18); BUN/Creat Ratio 11.9 RATIO (10-20); Calcium,Total 9.5 mg/dL (8.5-10.1); Chloride 97 mmol/L (98-107); Creatinine, Serum 7.41 mg/dL (0.55-1.02); EST Glomerular Filtration Rate 6 mL/min (>60); Est Glom Filt Rate - Afr Amer 7 mL/min (>60); Glucose 88 mg/dL (74-106); Potassium 6.1 mmol/L (3.5-5.1); Sodium Level 134 mmol/L (136-145)
[2021-06-30 20:05] LABS: KEPPRA (LEVETIRACETAM) 34.5 ug/mL (10.0-40.0)
== END | disposition home or self-care (01) ==
LOC: OLS.SW1020 05:00
PROVIDERS: Visit Provider Family Medicine
DX: E87.5 Hyperkalemia (principal); E11.9 Type 2 diabetes mellitus without complications
CPT/HCPCS: 36415; 80048; 80177; 85025

== ENCOUNTER → 2021-06-28 | Outpatient (REF) | payer SELFPAY | END | disposition home or self-care (01) | LOC: OLS.SW1020 03:00 | PROVIDERS: PCP Family Medicine; Referring Provider Family Medicine; Visit Provider Family Medicine | DX: R19.7 Diarrhea, unspecified (principal) | CPT/HCPCS: 87493 ==

== ENCOUNTER → 2021-06-30 | Outpatient (REF) | payer SELFPAY ==
[2021-06-30 09:07] LABS: Anion Gap 16 (5-15); BUN 107 mg/dL (7-18); BUN/Creat Ratio 11.6 RATIO (10-20); Calcium,Total 9.2 mg/dL (8.5-10.1); Chloride 97 mmol/L (98-107); Creatinine, Serum 9.19 mg/dL (0.55-1.02); EST Glomerular Filtration Rate 5 mL/min (>60); Est Glom Filt Rate - Afr Amer 6 mL/min (>60); Glucose 81 mg/dL (74-106); Potassium 5.4 mmol/L (3.5-5.1); Sodium Level 136 mmol/L (136-145)
== END | disposition home or self-care (01) ==
LOC: OLS.SW1020 05:00
PROVIDERS: PCP Family Medicine; Referring Provider Family Medicine; Visit Provider Family Medicine
DX: E11.22 Type 2 diabetes mellitus with diabetic chronic kidney disease (principal); N18.6 End stage renal disease; E87.5 Hyperkalemia
CPT/HCPCS: 36415; 80048

== ENCOUNTER 2021-07-03 22:32 | Inpatient (IN) | payer MEDICARE, MEDICAID, SELFPAY ==
--- NOTE | 2021-07-03 00:40 | RAD_ITS ---
STUDY: X-RAY CHEST REASON FOR EXAM: Female, 65 years old. dyspnea TECHNIQUE: Single AP portable view of the chest. COMPARISON: 02/28/2018. FINDINGS: There are diffuse groundglass opacity overlying the left lung parenchyma and right suprahilar region concerning for diffuse left-sided and right upper lobe pneumonitis. There is no demonstrated pleural abnormality. Normal size heart. Midline sternotomy wires noted. Normal mediastinum and haley. Normal visualized pulmonary arteries. There is atherosclerotic calcification of the aortic arch with tortuosity. There is demineralization of the osseous structures. 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 There is no demonstrated abnormality of the visualized soft tissue structures of the upper abdomen. RAD/Chest 1 View (Portable) IMPRESSION: Diffuse left-sided and right upper lobe pneumonitis. Electronically Signed: Idania Love MD at 1:16 EDT ,
[2021-07-03 22:36] VITALS: BP 154/70; PULSE 52; RESP 20; TEMP 36.6; O2SAT 95; BMI 22.9
[2021-07-03 22:40] VITALS: BP 154/70; PULSE 52; RESP 20; TEMP 36.6; O2SAT 95
[2021-07-03 22:43] VITALS: O2SAT 94
--- NOTE | 2021-07-03 23:45 | EKG12_ITS ---
Test Reason : SOB Blood Pressure : / mmHG Vent. Rate : 040 BPM Atrial Rate : 031 BPM P-R Int : 000 ms QRS Dur : 124 ms QT Int : 558 ms P-R-T Axes : 000 062 070 degrees QTc Int : 454 ms Atrial fibrillation Septal infarct , age undetermined Abnormal ECG Confirmed by KATHY MOORE, TED ([id number]), dictionary editor ANN ANGULO ([id number]) on 07/05/2021 11:09:45 AM Referred By: DAMON Confirmed By:TED CHAVEZ MD
[2021-07-04] VITALS (16 sets, daily range): BP systolic 126–175; BP diastolic 59–81; PULSE 40–95; RESP 12–22; TEMP 36.3–37.2; O2SAT 95–98; BMI 23.6
--- NOTE | 2021-07-04 00:21 | ED.VIS.DYS ---
HPI History of Present Illness Chief Complaint: Cough Informant: patient, family and EMS Onset/Context/Timing Onset: Weeks (1) Context: gradual and onset Timing: Continuous Quality: Positive for Dyspnea on exertion and Orthopnea Current Severity: Moderate Maximum Severity: Severe Worsened by: Exertion and Lying flat Relieved by: Oxygen Associated Symptoms Negative for cough Chest Pain: Positive for None Narrative Narrative: Patient has been short of breath and it has been gradually worsening. She has chronic renal failure with oliguria, she is supposed to have dialysis every Saturday and Saturday, she is brought here late Saturday night for hypoxemia in the 30s at the care home, 70s for EMS. The last time she had even a partial session of dialysis was 1 week ago last Saturday. She states she rarely finishes a session because she feels sick, getting nauseated and having some dry heaving and demands to be done. She refused to go to the remaining sessions last week. When hypoxic and advised to come to the ER, she has refused until tonight. For the past month since she has been at the local care home, she has had recurrent C. difficile as a result of receiving antibiotics, still having diarrhea, and being treated for it. DNR CC according to accompanying care home paperwork family confirms this. [facility] Medical History (Updated 07/04/21 @ 02:[address] Anil Beltre MD) CAD (coronary artery disease) Callus of foot Cerebral infarction, unspecified Chronic ulcer of left foot with fat layer exposed Delayed wound healing Diabetes mellitus, type II Diabetic foot ulcer associated with type 2 diabetes mellitus Diabetic neuropathy CARMONA (dyspnea on exertion) Hammertoe of left foot Hemiplegia and hemiparesis following cerebral infarction affecting right dominant side Hyperlipidemia Hypertension Infection of left foot Iron deficiency Localized edema Malnutrition Non-healing wound Obesity (BMI 30.0-34.9) NGUYEN (obstructive sleep apnea) Other specified peripheral vascular diseases Problem with dialysis access Problem with dialysis access PVD (peripheral vascular disease) Symptomatic anemia Type 2 diabetes mellitus with diabetic polyneuropathy Ulcer of left lower extremity with fat layer exposed Ulcer of right lower extremity with fat layer exposed Walking difficulty due to ankle and foot Xerosis cutis Home Medications vitamin B complex and vitamin C no.20-folic acid 1 mg capsule 1 cap PO MOWEFR 02/27/17 [History Last Taken Unknown] tizanidine 2 mg PO QHS PRN PRN 03/25/19 [History Last Taken Unknown] amlodipine 10 mg tablet 5 mg PO DAILY tab 12/15/19 [History Last Taken Unknown] aspirin 81 mg tablet,delayed release 81 mg PO DAILY 12/15/19 [History Last Taken Unknown] atorvastatin 40 mg tablet 80 mg PO QHS tab 12/15/19 [History Last Taken Unknown] clopidogrel 75 mg tablet 75 mg PO DAILY 12/15/19 [History Last Taken Unknown] escitalopram oxalate 10 mg tablet 20 mg PO DAILY tab 12/15/19 [History Last Taken Unknown] furosemide 40 mg tablet 40 mg PO Q OTHER DAY tab 12/15/19 [History Last Taken Unknown] insulin lispro 100 unit/mL subcutaneous pen See Rx Instructions SC TID 12/15/19 [History Last Taken Unknown] losartan 100 mg tablet 50 mg PO .QODAY tab 12/15/19 [History Last Taken Unknown] metoclopramide HCl 5 mg tablet 5 mg PO BID PRN tab 12/15/19 [History Last Taken Unknown] metoprolol tartrate 25 mg tablet 12.5 mg PO BID tab 12/15/19 [History Last Taken Unknown] omeprazole 40 mg capsule,delayed release 40 mg PO DAILY 12/15/19 [History Last Taken Unknown] Allergy/AdvReac Type Severity Reaction Status Date / Time hydrocodone Allergy Unknown unknown Verified 12/15/19 13:54 iodine Allergy Unknown Unknown Verified 12/15/19 13:54 morphine Allergy Unknown unknown Verified 12/15/19 13:54 oxycodone Allergy Unknown unknown Verified 12/15/19 13:54 latex Allergy Unknown Verified 12/15/19 13:54 Penicillins Allergy Unknown Verified 12/15/19 13:54 shellfish derived Allergy Unknown Verified 12/15/19 13:54 Surgical History Presence of surgically created arteriovenous shunt for hemodialysis S/P CABG x 3 Status post transmetatarsal amputation of right foot Stented coronary artery Social History Smoking Status: Never smoker ROS ROS ED Constitutional Constitutional ED: Reports malaise; Denies chills or fever(s) Eyes Eyes: Denies change in vision or diplopia ENT ENT ED: Denies rhinorrhea or sore throat Cardiovascular Cardiovascular: Reports orthopnea; Denies chest pain or palpitations Respiratory/Chest Respiratory/Chest: Reports dyspnea and orthopnea; Denies cough Gastrointestinal Gastrointestinal: Reports diarrhea; Denies abdominal pain, nausea or vomiting Genitourinary Genitourinary ED: Denies dysuria or hematuria Musculoskeletal Musculoskeletal: Denies back pain or neck pain Integumentary Denies abscess or rash Neurologic Neurologic: Reports paresthesias, weakness and other Details: Pre-existing right-sided deficits ; Denies headache(s) Psychiatric Psychiatric: Denies anxiety or suicidal thoughts EXAM Physical Exam Const Vital Signs: 07/03/21 22:36 07/03/21 22:40 07/03/21 22:43 Temperature 97.9 F 97.9 F Temperature Source Oral Oral Pulse Rate 52 L 52 L Respiratory Rate 20 H 20 H Respiratory Effort Short of Breath Labored Respiratory Depth Shallow Respiratory Pattern Irregular Blood Pressure 154/70 H 154/70 H Blood Pressure Mean 98 98 Pulse Ox 95 95 Oxygen Delivery Method Non-Rebreather Non-Rebreather Non-Rebreather Fraction of Inspired Oxygen (FIO2) 07/04/21 00:04 07/04/21 01:01 07/04/21 01:46 Temperature Temperature Source Pulse Rate 42 L 41 L 41 L Respiratory Rate 22 H 20 H 18 Respiratory Effort Respiratory Depth Respiratory Pattern Normal Normal Blood Pressure 136/65 H Blood Pressure Mean 88 Pulse Ox 95 95 Oxygen Delivery Method Bi-pap Fraction of Inspired Oxygen (FIO2) 50 07/04/21 01:48 Temperature Temperature Source Pulse Rate 40 L Respiratory Rate 18 Respiratory Effort Respiratory Depth Respiratory Pattern Normal Blood Pressure Blood Pressure Mean Pulse Ox 98 Oxygen Delivery Method Fraction of Inspired Oxygen (FIO2) 30 Positive well nourished and well developed General Appearance ED: well developed and NAD HEENT Reports moist mucous membranes normocephalic and atraumatic Eyes PERRL and EOMs intact bilaterally Neck full ROM and supple Resp Resp Narrative: Tachypneic, on a nonrebreather, diffuse rhonchi bilaterally symmetrically, trachea midline Cardio regular rate, regular rhythm and no murmurs GI non-tender and non-distended Auscultation: normoactive bowel sounds Palpation: soft Back/Spine no CVA tenderness General Back: other FROM Extremity normal to inspection Extremity Narrative: Prior distal foot amputations bilaterally, well-healed without signs of infection currently General Extremety ED: Negative for edema, pulses abnormal or tenderness General Extremity: Negative for edema or pulses abnormal Neuro oriented x3 and CN's II-XII intact bilaterally Neuro Narrative: Can move right upper and lower extremities but very weak, at baseline according to patient and family Sensorium / Orientation: awake and alert Skin no rashes or lesions noted and no wounds MDM MDM MDM Narrative Medical decision making narrative: Patient relatively bradycardic and suspecting hyperkalemia before the results were back, she was given calcium and albuterol; prior to this, her heart rate was going as low as 30. She was not symptomatic with this. Her potassium returned at 7.0. I discussed this and her heart rate with Dr. Franco who is covering for her flight surveyor Dr. [place], given that it is around 2 AM he recommends getting her dialyzed first thing in the morning here in the hospital, since it would take staff several hours to get here to perform dialysis anyhow, and since she is clinically and hemodynamically stable while on BiPAP, temporizing her with further medical treatment. Therefore I additionally ordered insulin and dextrose and Kayexalate. We had already given her IV Lasix and placed her on BiPAP, she was breathing well and tolerating BiPAP well, keeping her sats adequate into the 90s. Chest x-ray 1 view on my interpretation appears to show patchy infiltrates bilaterally. Radiology in agreement, that this looks more like pneumonitis than pulmonary edema necessarily, and with her mild leukocytosis I added blood cultures, lactic acid, and empiric antibiotic therapy with Rocephin and azithromycin. Troponin is almost 4000 suggesting NSTEMI. Certainly part of this may be due to elevated creatinine, but I suspect also hypoxemia. She states she was at [place] about a month ago, and they performed a SURYA, saying that there was no evidence of damage. She is DNRCC, therefore we will not escalate care to include CPR and/or intubation, so for now will admit to PCU. Lab Data Attestation: I reviewed the patient's lab results. Labs: Laboratory Results - last 24 hr 07/04/21 07/04/21 07/04/21 00:55 00:55 01:49 WBC 12.1 H RBC 4.08 L Hgb 11.4 L Hct 35.7 L MCV 87.5 MCH 27.9 MCHC 31.9 L RDW Std Deviation 55.4 H RDW Coeff of [place] 17.3 H Plt Count 391 MPV 9.7 Immature Gran % (Auto) 0.600 Neut % (Auto) 92.9 H Lymph % (Auto) 2.6 L [place] % (Auto) 3.7 Eos % (Auto) 0.0 Baso % (Auto) 0.2 Absolute Neuts (auto) 11.3 H Absolute Lymphs (auto) 0.31 L Nucleated RBC % 0 Differential Comment SCANNED Sodium 134 L Potassium 7.0 H* Chloride 94 L Carbon Dioxide 19.0 L Anion Gap 21 H BUN 133 H* Creatinine 11.10 H* Estim Creat Clear Calc 4.49 Est GFR (MDRD) Af Amer 4 L Est GFR (MDRD) Non-Af 4 L BUN/Creatinine Ratio 12.0 Glucose 190 H Lactic Acid 2.1 H* Calcium 10.3 H Troponin I High Sens 3950 H* Radiography Diagnostic Testing: Clinical Impression(s) from Imaging Studies Chest X-Ray 07/03/21 00:40 IMPRESSION: Diffuse left-sided and right upper lobe pneumonitis. Electronically Signed: Idania Love MD at 1:16 EDT , Rhythm Strip Rhythm Strip: A-fib Rate: 40 Ectopy: None EKG Initial EKG: Attestation: I personally reviewed and interpreted this EKG as follows: Interpretation: No Acute Injury Pattern and Atrial Fibrillation (bradycardic at 40) Critical Care Time Critical Care Time: Yes Critical care time (excluding procedures): 30-74 minutes (45), Including time spent:, Discussing w/Patient &/or Family/Checkout Operator, Discussing w/Consultants, Arranging Admission or Transfer and Performing Direct Patient Care at Bedside Discharge Plan Dx/Rx/DC Orders Clinical Impression: Acute respiratory failure with hypoxia, Hyperkalemia, diminished renal excretion, Pneumonia, Sepsis, Acute non-ST elevation myocardial infarction (NSTEMI), ESRD on dialysis, Noncompliance of patient with renal dialysis, C. difficile diarrhea, Atrial fibrillation Disposition Disposition: [facility]
[2021-07-04] MEDS: Furosemide 40 MG/4 ML Vial IV (00:57)
[2021-07-04 01:04] LABS: Absolute Lymphocyte Count 0.31 X10^3/uL (0.83-4.51); Absolute Neutrophil Count 11.3 X10^3/uL (2.0-7.7); Basophil# 0.03 X10^3/uL; Basophil% 0.2 % (0-1); Hematocrit 35.7 % (37-47); Hemoglobin 11.4 g/dL (12.0-15.0); Lymphocyte # 0.31 X10^3/ul (0.83-4.51); Lymphocyte % 2.6 % (19-41); Mean Corp Hgb Conc 31.9 g/dL (32-36); Mean Corpuscular Hgb 27.9 pg (27.0-32.0); Mean Corpuscular Volume 87.5 fL (81-99); Mean Platelet Vol. 9.7 fl (6.2-12.0); Monocyte# 0.45 X10^3/uL; Monocyte% 3.7 % (0-10); NRBC Flagged by Analyzer 0 % (0-5); Neutrophil # 11.25 X10^3/uL (2.7-7.7); Neutrophil % 92.9 % (47-70); POSITIVE DIFFERENTIAL YES; Platelet Count 391 K/mm3 (150-450); RBC Distribution Width CV 17.3 % (11.6-14.6); RBC Distribution Width SD 55.4 fl (35.1-43.9); Red Blood Count 4.08 M/mm3 (4.2-5.4); White Blood Count 12.1 K/mm3 (4.4-11.0)
[2021-07-04 01:08] LABS: Differential Indicated SCAN CRITERIA MET
[2021-07-04 01:31] LABS: Differential Comment SCANNED
[2021-07-04 01:52] LABS: Anion Gap 21 (5-15); BUN 133 mg/dL (7-18); Calcium,Total 10.3 mg/dL (8.5-10.1); Chloride 94 mmol/L (98-107); EST Glomerular Filtration Rate 4 mL/min (>60); Est Glom Filt Rate - Afr Amer 4 mL/min (>60); Estimated Creatinine Clearance 4.49 ml/min; Glucose 190 mg/dL (74-106); Sodium Level 134 mmol/L (136-145); Troponin-I HS 3950 pg/mL (3.0-54.0)
--- NOTE | 2021-07-04 02:10 | HP.PCM.HOS_ITS ---
HPI - General General Date of Admission: 07/04/21 HPI Narrative JULISSA GUERRA, is a 65 F with a significant history of obstructive sleep apnea; ESRD is on dialysis; CVA with residual weakness and on dual antiplatelet therapy and high intensity statin; CAD status post CABG; diabetes mellitus who presents with 3-day history of progressive worsening shortness of breath. Reportedly per custodial security representative also saturation was in the 30s. In route to the hospital saturation was in the 70s. Initially she was put on mask and then transition to BiPAP at emergency department. Patient has missed sessions of dialysis because of nausea and vomiting with dialysis. She did not finish the full course of her last dialysis. At the emergency part patient was found to have a potassium of 7. ED doctor discussed the case with nephrology on-call who stated patient will be dialyzed, [facility] Medical History CAD (coronary artery disease) Callus of foot Cerebral infarction, unspecified Chronic ulcer of left foot with fat layer exposed Delayed wound healing Diabetes mellitus, type II Diabetic foot ulcer associated with type 2 diabetes mellitus Diabetic neuropathy CARMONA (dyspnea on exertion) Hammertoe of left foot Hemiplegia and hemiparesis following cerebral infarction affecting right dominant side Hyperlipidemia Hypertension Infection of left foot Iron deficiency Localized edema Malnutrition Non-healing wound Obesity (BMI 30.0-34.9) NGUYEN (obstructive sleep apnea) Other specified peripheral vascular diseases Problem with dialysis access Problem with dialysis access PVD (peripheral vascular disease) Symptomatic anemia Type 2 diabetes mellitus with diabetic polyneuropathy Ulcer of left lower extremity with fat layer exposed Ulcer of right lower extremity with fat layer exposed Walking difficulty due to ankle and foot Xerosis cutis Home Medications vitamin B complex and vitamin C no.20-folic acid 1 mg capsule 1 cap PO MOWEFR 02/27/17 [History Last Taken Unknown] amlodipine 10 mg tablet 5 mg PO DAILY tab 12/15/19 [History Last Taken Unknown] aspirin 81 mg tablet,delayed release 81 mg PO DAILY 12/15/19 [History Last Taken Unknown] atorvastatin 40 mg tablet 80 mg PO QHS tab 12/15/19 [History Last Taken Unknown] clopidogrel 75 mg tablet 75 mg PO DAILY 12/15/19 [History Last Taken Unknown] furosemide 40 mg tablet 40 mg PO Q OTHER DAY tab 12/15/19 [History Last Taken Unknown] metoprolol tartrate 25 mg tablet 12.5 mg PO BID tab 12/15/19 [History Last Taken Unknown] cilostazol 50 mg PO BID 07/04/21 [History Last Taken Unknown] fluvoxamine 50 mg PO DAILY 07/04/21 [History Last Taken Unknown] levetiracetam [Keppra] 250 mg PO MOWEFR 07/04/21 [History Last Taken Unknown] levetiracetam [Keppra] 500 mg PO DAILY 07/04/21 [History Last Taken Unknown] lorazepam [Ativan] 0.5 mg PO Q6H PRN PRN 07/04/21 [History Last Taken Unknown] pantoprazole 40 mg PO DAILY 07/04/21 [History Last Taken Unknown] pentoxifylline 400 mg PO DAILY 07/04/21 [History Last Taken Unknown] Allergy/AdvReac Type Severity Reaction Status Date / Time hydrocodone Allergy Unknown unknown Verified 12/15/19 13:54 iodine Allergy Unknown Unknown Verified 12/15/19 13:54 morphine Allergy Unknown unknown Verified 12/15/19 13:54 oxycodone Allergy Unknown unknown Verified 12/15/19 13:54 latex Allergy Unknown Verified 12/15/19 13:54 Penicillins Allergy Unknown Verified 12/15/19 13:54 shellfish derived Allergy Unknown Verified 12/15/19 13:54 Family History Other CVA (cerebral vascular accident) Cancer Surgical History Presence of surgically created arteriovenous shunt for hemodialysis S/P CABG x 3 Status post transmetatarsal amputation of right foot Stented coronary artery Social History Smoking Status: Never smoker ROS ROS Narrative Constitutional: Reports anorexia. Reports weight loss of more than 100 pounds in the past 2 years. Reports fatigue. Denies fever, chills, fatigue. Eyes: Denies blurry vision, change in eye color, change in vision, discharge from eye(s), double vision, erythema, eye pain, loss of vision or other HEENT: Denies abnormal hearing, dysphagia, ear pain, epistaxis, headache(s), hearing loss, nasal congestion, nasal discharge, post nasal drip, sinus pressure, sore throat or other Cardiovascular: Denies chest pain or palpitations. Denies orthopnea. Respiratory/Chest: Reports shortness of breath and cough. Gastrointestinal: Reports diarrhea. Has nausea and vomiting with dialysis. Genitourinary: Dialysis patient with oliguria. Musculoskeletal: Denies arthralgias, back pain, joint pain, joint stiffness, joint swelling, myalgias, neck pain or other Neurologic: Denies abnormal gait, abnormal speech, confusion, disequilibrium, dizziness, focal weakness, numbness, paresthesias, seizure-like activity, seizures, syncope, tingling, tremor(s) or other Psychiatric: Denies anxiety, depression, homicidal ideation, suicidal ideation or other Endocrinology: Denies change in body appearance, cold intolerance, excessive sweating, heat intolerance, polydipsia, polyuria or other Hematologic/Lymphatic: Denies anemia, easy bleeding, easy bruising, lymphadenopathy or other Integumentary: Denies rashes Allergic/Immunologic: Denies rhinitis, hives, eczema, or other Vital Signs Vital Signs Vital Signs: 07/03/21 22:36 07/03/21 22:40 07/03/21 22:43 Temperature 97.9 F 97.9 F Temperature Source Oral Oral Pulse Rate 52 L 52 L Respiratory Rate 20 H 20 H Respiratory Effort Short of Breath Labored Respiratory Depth Shallow Respiratory Pattern Irregular Blood Pressure 154/70 H 154/70 H Blood Pressure Mean 98 98 Pulse Ox 95 95 Oxygen Delivery Method Non-Rebreather Non-Rebreather Non-Rebreather Fraction of Inspired Oxygen (FIO2) 07/04/21 00:04 07/04/21 01:01 07/04/21 01:46 Temperature Temperature Source Pulse Rate 42 L 41 L 41 L Respiratory Rate 22 H 20 H 18 Respiratory Effort Respiratory Depth Respiratory Pattern Normal Normal Blood Pressure 136/65 H Blood Pressure Mean 88 Pulse Ox 95 95 Oxygen Delivery Method Bi-pap Fraction of Inspired Oxygen (FIO2) 50 07/04/21 01:48 Temperature Temperature Source Pulse Rate 40 L Respiratory Rate 18 Respiratory Effort Respiratory Depth Respiratory Pattern Normal Blood Pressure Blood Pressure Mean Pulse Ox 98 Oxygen Delivery Method Fraction of Inspired Oxygen (FIO2) 30 Weight Weight: 62.6 kg Body Mass Index (BMI) 22.9 Physical Exam Narrative Physical exam: General: Well-nourished, well-developed. Head: Normocephalic, atraumatic, no tenderness Eyes: Vision is grossly intact. EOMI ENT, no trauma, moist mucous membranes, no rhinorrhea Neck: Nontender, full range of motion, no spinal tenderness, deformities, step- off CVS: Regular rate and rhythm. S1-S2 present. No murmur, gallop or rub. Respiratory : clear to auscultation bilaterally, chest wall nontender, no wheezing Abdomen: Soft, nontender, nondistended, normal bowel sounds, no masses : Deferred Back: Nontender, no CVA tenderness. Extremities: Partial amputation of right foot. Loss of digits of left foot Skin: Wound at plantar side of left foot and medial side of left foot; normal color, no trauma, abrasions Neuro: Alert, oriented, cranial nerves II through XII grossly intact. Psychiatry: Normal mood. Normal affect. Not depressed. Not anxious. Results Lab / Micro Data Result Diagrams: 07/04/21 00:55 07/04/21 00:55 Labs: Laboratory Results - last 24 hr 07/04/21 00:55: WBC 12.1 H, RBC 4.08 L, Hgb 11.4 L, Hct 35.7 L, MCV 87.5, MCH 27.9, MCHC 31.9 L, RDW Std Deviation 55.4 H, RDW Coeff of [place] 17.3 H, Plt Count 391, MPV 9.7, Immature Gran % (Auto) 0.600, Neut % (Auto) 92.9 H, Lymph % (Auto) 2.6 L, [place] % (Auto) 3.7, Eos % (Auto) 0.0, Baso % (Auto) 0.2, Absolute Neuts (auto) 11.3 H, Absolute Lymphs (auto) 0.31 L, Nucleated RBC % 0, Differential Comment SCANNED 07/04/21 00:55: Sodium 134 L, Potassium 7.0 H*, Chloride 94 L, Carbon Dioxide 19.0 L, Anion Gap 21 H, BUN 133 H*, Creatinine 11.10 H*, Estim Creat Clear Calc 4.49, Est GFR (MDRD) Af Amer 4 L, Est GFR (MDRD) Non-Af 4 L, BUN/Creatinine Ratio 12.0, Glucose 190 H, Calcium 10.3 H, Troponin I High Sens 3950 H* Micro: Microbiology 07/04/21 00:55 Interface Orders SARS-CoV-2 Antigen (Rapid) - Final Rhythm Strip Rhythm Strip: A-fib Rate: 40 Ectopy: None Radiology Impression Chest X-Ray 07/03/21 00:40 IMPRESSION: Diffuse left-sided and right upper lobe pneumonitis. Electronically Signed: Idania Love MD at 1:16 EDT , Assessment & Plan Assessment/Plan (1) Acute respiratory failure with hypoxia: (2) Hyperkalemia, diminished renal excretion: PLAN: Acute hypoxemic respiratory failure with hypoxia. Initially required max and then transition to BiPAP. Continue supplemental oxygen to maintain oxygen saturation to at least 90%. Likely secondary to fluid overload from missing dialysis. Nephrology consulted with plan for dialysis in a.m. after presentation. Chest x-ray was visualized and independently interpreted and agree direct interpretation. Oxygen to BiPAP. With mild leukocytosis of 12.4 on presentation. No fever; no chills. Received 1 dose of azithromycin and ceftriaxone emergency department. Monitor off antibiotics. Lasix 40 mg IV push ordered emergency department. Home Lasix every other day c ontinued. Flow restriction of 1250 mL/day. Reportedly had SURYA about a month ago at outside hospital. Reportedly SURYA was unremarkable. Request made from the ED for report from outside hospital. BRANDT on end-stage renal disease/hyperkalemia/anion gap metabolic acidosis Patient initially bradycardic with heart rate in the 40s at the emergency department. EKG showed A. fib. With treatment telemetry showed sinus rhythm. Dialysis Saturday. Unable to tolerate dialysis. Creatinine p resentation was 11.11. Baseline creatinine is around 6. BUN on presentation was 133. Potassium was 7.0. Calcium gluconate; dextrose with insulin; albuterol; Kayexalate and MiraLAX ordered at the emergency department. Patient unable to tolerate Kayexalate secondary to nausea. Zofran ordered. Showed on presentation was 134. Calcium level of 10.3. Lactic acid of 2.1; likely secondary to hypoxemia. Trend lactic acid. Trend BMP. ED doctor discussed the case with nephrology who is planning on dialysis in a.m. Elevated troponin Troponin level of 3950. Likely type II OH from demand ischemia. Trend troponin. Patient denies any chest pain. Received aspirin 162 mg in the emergency department. Daily aspirin and Plavix continued. History of C. difficile Reportedly completed a course of antibiotics. History of diarrhea. C. difficile test ordered. Diabetes mellitus Patient with hyperglycemia on presentation Accu-Chek QA [facility] with correction scale insulin ordered. Left plantar wound Adaptic dressing ordered. Wound care consult. DVT prophylaxis: Subcutaneous heparin ordered. Charges/Coding Visit Charges Inpatient E&M: 58378 Init Hosp L3
[2021-07-04 02:34] LABS: Lactic Acid 2.1 mmol/L (0.4-1.9)
[2021-07-04] MEDS: Insulin Lispro 10 UNIT in Syringe 0 ML 6 UNIT IV (02:43)
[2021-07-04] MEDS: Dextrose 10%-Water 250 ML 999 ML IV ×2 (02:44→12:39)
[2021-07-04] MEDS: Calcium Gluconate IV 3 GM in Syringe 1 EACH IV (02:49)
--- NOTE | 2021-07-04 02:56 | NURSING ---
unable to give PO medication at this time due to gagging. Hospitalist gave verbal order for 8mg IV zofran now and attempt to give medication
[2021-07-04 03:06] LABS: Bedside Glucose 167 mg/dL (74-106)
[2021-07-04] MEDS: Ondansetron 4 MG/2 ML Vial 8 MG IV (04:12)
[2021-07-04 04:26] LABS: Absolute Lymphocyte Count 0.57 X10^3/uL (0.83-4.51); Absolute Neutrophil Count 8.4 X10^3/uL (2.0-7.7); Basophil# 0.01 X10^3/uL; Basophil% 0.1 % (0-1); Hemoglobin 9.3 g/dL (12.0-15.0); Lymphocyte # 0.57 X10^3/ul (0.83-4.51); Lymphocyte % 5.9 % (19-41); Mean Corp Hgb Conc 32.1 g/dL (32-36); Mean Corpuscular Hgb 28.6 pg (27.0-32.0); Mean Corpuscular Volume 89.2 fL (81-99); Mean Platelet Vol. 9.6 fl (6.2-12.0); Monocyte# 0.53 X10^3/uL; Monocyte% 5.5 % (0-10); NRBC Flagged by Analyzer 0 % (0-5); Neutrophil # 8.44 X10^3/uL (2.7-7.7); Neutrophil % 88.2 % (47-70); POSITIVE DIFFERENTIAL YES; Platelet Count 301 K/mm3 (150-450); RBC Distribution Width CV 17.2 % (11.6-14.6); Red Blood Count 3.25 M/mm3 (4.2-5.4); White Blood Count 9.6 K/mm3 (4.4-11.0)
[2021-07-04 04:29] LABS: Differential Indicated SCAN CRITERIA MET
[2021-07-04 04:46] LABS: Differential Comment SCANNED
[2021-07-04 04:56] LABS: Anion Gap 22 (5-15); BUN 123 mg/dL (7-18); BUN/Creat Ratio 11.1 RATIO (10-20); Calcium,Total 10.2 mg/dL (8.5-10.1); Chloride 94 mmol/L (98-107); EST Glomerular Filtration Rate 4 mL/min (>60); Est Glom Filt Rate - Afr Amer 4 mL/min (>60); Estimated Creatinine Clearance 3.94 ml/min; Glucose 254 mg/dL (74-106); Potassium 5.6 mmol/L (3.5-5.1); Sodium Level 133 mmol/L (136-145); Troponin-I HS 4237 pg/mL (3.0-54.0)
[2021-07-04 05:46] LABS: International Normalized Ratio 1.3; Prothrombin Time (Protime)PT. 15.6 SECONDS (11.7-14.9)
[2021-07-04] MEDS: 0.9% Saline Lock 10 ML Syringe IV ×5 (05:59→22:28)
[2021-07-04] MEDS: Heparin Injection (Vial) 5,000 UNIT/ML VIAL 4000 UNIT IV (05:59)
[2021-07-04 06:08] LABS: Reflex Lactate? Y
[2021-07-04 06:30] LABS: Lactic Acid 2.6 mmol/L (0.4-1.9); Troponin-I HS 4232 pg/mL (3.0-54.0)
[2021-07-04 06:41] LABS: Partial Thromboplast Time 30.7 Seconds (24.1-36.2)
[2021-07-04 07:06] LABS: Bedside Glucose 136 mg/dL (74-106)
--- NOTE | 2021-07-04 08:48 | CASEMGMT ---
Patient is from [facility]. SW faxed updates. According to [facility] admissions sheet it looks like patient is there skilled, therefore she would need a pre-cert prior to her return. will verify this with [facility]. Sia MCKNIGHT
--- NOTE | 2021-07-04 09:13 | DIALYSIS ---
HD x 3.5 hours UF -1000ml tolerated tx well. Stasis at LLAF dsg at sites. report to Keke MOREIRA
--- NOTE | 2021-07-04 10:04 | CASEMGMT ---
SW spoke with Dorothea at [facility]. Patient is there skilled and will need a pre-cert to return. Sia Noe DIRECTOR OF ASSESSING JUAN LUIS
--- NOTE | 2021-07-04 10:22 | CASEMGMT ---
Addendum entered by Sia Noe 07/04/21 10:51: JUSTEN received a copy of Power of Treasury Management Sales Consultant papers from [facility]. However, it is for Durable Power of Treasury Management Sales Consultant not Healthcare. SW will still place these documents in patient's chart. Sia MCKNIGHT Original Note: Referral for advance directives was put in the computer. JUSTEN spoke with Dorothea at [facility] and she said that they have Healthcare POA papers on file. JUSTEN asked her to please fax the document to JUSTEN. Sia MCKNIGHT
--- NOTE | 2021-07-04 10:29 | CASEMGMT ---
Leila is recommending palliative c/s and Dr. Ramirez is agreeable. Palliative order placed and referral e-mailed. Lyndsey MOREIRA CM
--- NOTE | 2021-07-04 10:29 | WOUNDNOTE ---
wound photo: left plantar foot
--- NOTE | 2021-07-04 10:30 | WOUNDNOTE ---
wound photo: left kruse
--- NOTE | 2021-07-04 10:38 | CON.PCM.RE_ITS ---
Assessment & Plan Assessment/Plan (1) ESRD on dialysis: (2) Hyperkalemia, diminished renal excretion: (3) Elevated troponin: (4) Acute respiratory failure with hypoxia: PLAN: Patient was admitted for acute hypoxic respiratory failure, elevated troponin, hyperkalemia, bradycardia (HR 40s) and missing dialysis. Patient has history of noncompliance with dialysis and last dialysis was a week ago. Patient underwent HD today over 3.5 hours with 1L UF. Will plan for HD again tomorrow. She dialyzes at [facility] Saturday, Saturday, Saturday, Saturday schedule. Today I asked patient if she wanted to continue with dialysis and she stated she does, I also contacted patient's POA (daughter) Chelsea and she states she and her family have had multiple conversations with patient regarding dialysis and risk of missing. We discussed Palliative care consult and POA is in agreement. Patient has elevated troponins, she is on heparin gtt. History of anemia of CKD, will follow hgb trends. Patient receives ANDRA with HD. BPs acceptable, on norvasc. Recommend holding am dose on HD days. Further orders forthcoming as hospitalization evolves. Thank you for allowing us to participate in the care of Ms. Guerra. HPI Consult Data Date of Consult: 07/04/21 HPI Narrative HPI Narrative: JULISSA GUERRA, is a 65 F who presented to ER with complaints of shortness of breath. In the ER she was found to have K+ 7.0 with bradycardia, also placed on Bipap and was therefore admitted for further evaluation and treatment. She underwent hemodialysis already this morning and tolerated treatment well. She tolerated 1L fluid removal with dialysis. She is now on nasal canular. Patient is alert and oriented this morning. Patient currently resides at [facility] with in-house dialysis. Unfortunately patient is not compliant with hemodialysis and last treatment was last Saturday. When a sked why she did not go to dialysis last few treatments patient stated because she was not feeling well. [facility] Medical History (Updated 07/04/21 @ 05:[address] Nestor Coronel MD) CAD (coronary artery disease) Callus of foot Cerebral infarction, unspecified Chronic ulcer of left foot with fat layer exposed Delayed wound healing Diabetes mellitus, type II Diabetic foot ulcer associated with type 2 diabetes mellitus Diabetic neuropathy CARMONA (dyspnea on exertion) Hammertoe of left foot Hemiplegia and hemiparesis following cerebral infarction affecting right dominant side Hyperlipidemia Hypertension Infection of left foot Iron deficiency Localized edema Malnutrition Non-healing wound Obesity (BMI 30.0-34.9) NGUYEN (obstructive sleep apnea) Other specified peripheral vascular diseases Problem with dialysis access Problem with dialysis access PVD (peripheral vascular disease) Stroke/cerebrovascular accident Symptomatic anemia Type 2 diabetes mellitus with diabetic polyneuropathy Ulcer of left lower extremity with fat layer exposed Ulcer of right lower extremity with fat layer exposed Walking difficulty due to ankle and foot Xerosis cutis Home Medications vitamin B complex and vitamin C no.20-folic acid 1 mg capsule 1 cap PO MOWEFR 02/27/17 [History Last Taken Unknown] amlodipine 10 mg tablet 10 mg PO DAILY tab 12/15/19 [History Last Taken Unknown] aspirin 81 mg tablet,delayed release 81 mg PO DAILY 12/15/19 [History Last Taken Unknown] atorvastatin 40 mg tablet 80 mg PO QHS tab 12/15/19 [History Last Taken Unknown] clopidogrel 75 mg tablet 75 mg PO DAILY 12/15/19 [History Last Taken Unknown] furosemide 40 mg tablet 40 mg PO Q OTHER DAY tab 12/15/19 [History Last Taken Unknown] metoprolol tartrate 25 mg tablet 37.5 mg PO BID tab 12/15/19 [History Last Taken Unknown] cilostazol 50 mg PO BID 07/04/21 [History Last Taken Unknown] fluvoxamine 50 mg PO DAILY 07/04/21 [History Last Taken Unknown] levetiracetam [Keppra] 250 mg PO MOWEFR 07/04/21 [History Last Taken Unknown] levetiracetam [Keppra] 500 mg PO DAILY 07/04/21 [History Last Taken Unknown] lorazepam [Ativan] 0.5 mg PO Q6H PRN PRN 07/04/21 [History Last Taken Unknown] pantoprazole 40 mg PO DAILY 07/04/21 [History Last Taken Unknown] pentoxifylline 400 mg PO DAILY 07/04/21 [History Last Taken Unknown] Allergy/AdvReac Type Severity Reaction Status Date / Time hydrocodone Allergy Unknown unknown Verified 12/15/19 13:54 iodine Allergy Unknown Unknown Verified 12/15/19 13:54 morphine Allergy Unknown unknown Verified 12/15/19 13:54 oxycodone Allergy Unknown unknown Verified 12/15/19 13:54 latex Allergy Unknown Verified 12/15/19 13:54 Penicillins Allergy Unknown Verified 12/15/19 13:54 shellfish derived Allergy Unknown Verified 12/15/19 13:54 Family History Other CVA (cerebral vascular accident) Cancer Surgical History Presence of surgically created arteriovenous shunt for hemodialysis S/P CABG x 3 Status post transmetatarsal amputation of right foot Stented coronary artery Social History Smoking Status: Never smoker ROS ROS Narrative as HPI and PMH Physical Exam Narrative Const: A&Ox3 HEENT: PERRLA, oral mucosa dry Cardio: S1S2 RRR Abdomen: soft, nontender, +BS x4quad Resp: clear anterior and posteriorly Extrem: no edema. AVF + thrill and bruit Lab / Micro Data Result Diagrams: 07/04/21 04:19 07/04/21 04:19 Labs: Laboratory Results - last 24 hr 07/04/21 00:55: WBC 12.1 H, RBC 4.08 L, Hgb 11.4 L, Hct 35.7 L, MCV 87.5, MCH 27.9, MCHC 31.9 L, RDW Std Deviation 55.4 H, RDW Coeff of [place] 17.3 H, Plt Count 391, MPV 9.7, Immature Gran % (Auto) 0.600, Neut % (Auto) 92.9 H, Lymph % (Auto) 2.6 L, [place] % (Auto) 3.7, Eos % (Auto) 0.0, Baso % (Auto) 0.2, Absolute Neuts (auto) 11.3 H, Absolute Lymphs (auto) 0.31 L, Nucleated RBC % 0, Differential Comment SCANNED 07/04/21 00:55: Sodium 134 L, Potassium 7.0 H*, Chloride 94 L, Carbon Dioxide 19.0 L, Anion Gap 21 H, BUN 133 H*, Creatinine 11.10 H*, Estim Creat Clear Calc 4.49, Est GFR (MDRD) Af Amer 4 L, Est GFR (MDRD) Non-Af 4 L, BUN/Creatinine Ratio 12.0, Glucose 190 H, Calcium 10.3 H, Troponin I High Sens 3950 H* 07/04/21 01:49: Lactic Acid 2.1 H* 07/04/21 02:31: POC Glucose 167 H 07/04/21 04:19: WBC 9.6, RBC 3.25 L, Hgb 9.3 L, Hct 29.0 L, MCV 89.2, MCH 28.6, MCHC 32.1, RDW Std Deviation 56.0 H, RDW Coeff of [place] 17.2 H, Plt Count 301, MPV 9.6, Immature Gran % (Auto) 0.300, Neut % (Auto) 88.2 H, Lymph % (Auto) 5.9 L, [place] % (Auto) 5.5, Eos % (Auto) 0.0, Baso % (Auto) 0.1, Absolute Neuts (auto) 8.4 H, Absolute Lymphs (auto) 0.57 L, Nucleated RBC % 0, Differential Comment SCANNED 07/04/21 04:19: Sodium 133 L, Potassium 5.6 H, Chloride 94 L, Carbon Dioxide 17.0 L, Anion Gap 22 H, BUN 123 H*, Creatinine 11.10 H*, Estim Creat Clear Calc 3.94, Est GFR (MDRD) Af Amer 4 L, Est GFR (MDRD) Non-Af 4 L, BUN/Creatinine Ratio 11.1, Glucose 254 H, Calcium 10.2 H 07/04/21 04:19: Troponin I High Sens 4237 H* 07/04/21 05:25: Troponin I High Sens 4232 H* 07/04/21 05:25: APTT 30.7 07/04/21 05:25: PT 15.6 H, INR 1.3 07/04/21 05:25: Lactic Acid 2.6 H* 07/04/21 06:49: POC Glucose 136 H Micro: Microbiology 07/04/21 00:55 Interface Orders SARS-CoV-2 Antigen (Rapid) - Final Rhythm Strip Rhythm Strip: A-fib Rate: 40 Ectopy: None Radiology Impression Chest X-Ray 07/03/21 00:40 IMPRESSION: Diffuse left-sided and right upper lobe pneumonitis. Electronically Signed: Idania Love MD at 1:16 EDT ,
[2021-07-04 10:54] LABS: Troponin-I HS 3808 pg/mL (3.0-54.0)
[2021-07-04 12:21] LABS: Bedside Glucose 63 mg/dL (74-106)
[2021-07-04] MEDS: Glucagon 1 MG/ML Syringe IM (12:54)
[2021-07-04 13:03] LABS: Partial Thromboplast Time 50.2 Seconds (24.1-36.2)
--- NOTE | 2021-07-04 13:15 | CASEMGMT ---
Nurse Practitioner with Nephrology indicated patient is non-adherent with her dialysis. Concern was expressed that maybe patient should go Hospice. SW is also concerned patient may be depressed. SW met with patient, introduced self and role at [facility]. SW asked patient about how things are going. Patient was at [facility] for awhile. She did not like it so she has been moved to [facility]. Patient does like it better at [facility]. SW asked patient about her mental health. Patient said she has anxiety and she is on medication. Patient denied depression. Patient does present with depression like symptoms, she speaks slowly, slow to respond, would not make eye contact with SW. This could be related to her medical issues. SW asked patient about dialysis. Patient does not like dialysis because she gets sick. SW told patient she does not have to do dialysis, but she would have to be on Hospice. Patient said, I don't want Hospice. SW asked if she understands that if she keeps missing dialysis that one of these times she may not be able to recover and it could result in a painful . Patient said she knows. Patient asked if SW could get her paper towels, SW gave her paper towels. SW asked patient if SW could do anything for her. Patient said she needs changed. SW will notify the FURNACE WORKER. SW notified FURNACE WORKER. SW will attempt to check in with patient again. Sia MCKNIGHT
[2021-07-04 13:31] LABS: Bedside Glucose 180 mg/dL (74-106)
[2021-07-04] MEDS: Ondansetron 4 MG/2 ML Vial IV (13:50)
[2021-07-04] MEDS: Heparin Injection (Vial) 5,000 UNIT/ML VIAL IV ×2 (13:59→21:27)
--- NOTE | 2021-07-04 14:08 | PCM.PN.HOSP ---
Subjective Subjective Patient was admitted this morning. He is a longterm resident with ESRD on hemodialysis. Patient has been refusing dialysis. She received dialysis today She stated that she usually misses dialysis because she gets nauseous. She complains of epigastric discomfort. Her pantoprazole was changed to IV PPI twice daily We will consult GI for possible EGD Check stool for occult Objective Data Objective Data Vital Signs: Vital Signs Temp Pulse Resp BP Pulse Ox 97.9 F 95 18 152/70 H 97 07/04/21 09:37 07/04/21 09:37 07/04/21 09:37 07/04/21 11:54 07/04/21 09:37 Oxygen Flow Rate (L/min) 3 Oxygen Delivery Method Nasal Cannula Weight: 58.6 kg Body Mass Index (BMI) 23.6 Intake & Output: Intake and Output for Last 24 Hours 07/02/21 07/03/21 07/04/21 23:59 23:59 23:59 Intake Total 674 / 674 Output Total 0 / 0 Balance 674 / 674 Lab / Micro Data Result Diagrams: 07/04/21 04:19 07/04/21 04:19 Labs: Laboratory Results - last 24 hr 07/04/21 00:55: WBC 12.1 H, RBC 4.08 L, Hgb 11.4 L, Hct 35.7 L, MCV 87.5, MCH 27.9, MCHC 31.9 L, RDW Std Deviation 55.4 H, RDW Coeff of [place] 17.3 H, Plt Count 391, MPV 9.7, Immature Gran % (Auto) 0.600, Neut % (Auto) 92.9 H, Lymph % (Auto) 2.6 L, [place] % (Auto) 3.7, Eos % (Auto) 0.0, Baso % (Auto) 0.2, Absolute Neuts (auto) 11.3 H, Absolute Lymphs (auto) 0.31 L, Nucleated RBC % 0, Differential Comment SCANNED 07/04/21 00:55: Sodium 134 L, Potassium 7.0 H*, Chloride 94 L, Carbon Dioxide 19.0 L, Anion Gap 21 H, BUN 133 H*, Creatinine 11.10 H*, Estim Creat Clear Calc 4.49, Est GFR (MDRD) Af Amer 4 L, Est GFR (MDRD) Non-Af 4 L, BUN/Creatinine Ratio 12.0, Glucose 190 H, Calcium 10.3 H, Troponin I High Sens 3950 H* 07/04/21 01:49: Lactic Acid 2.1 H* 07/04/21 02:31: POC Glucose 167 H 07/04/21 04:19: WBC 9.6, RBC 3.25 L, Hgb 9.3 L, Hct 29.0 L, MCV 89.2, MCH 28.6, MCHC 32.1, RDW Std Deviation 56.0 H, RDW Coeff of [place] 17.2 H, Plt Count 301, MPV 9.6, Immature Gran % (Auto) 0.300, Neut % (Auto) 88.2 H, Lymph % (Auto) 5.9 L, [place] % (Auto) 5.5, Eos % (Auto) 0.0, Baso % (Auto) 0.1, Absolute Neuts (auto) 8.4 H, Absolute Lymphs (auto) 0.57 L, Nucleated RBC % 0, Differential Comment SCANNED 07/04/21 04:19: Sodium 133 L, Potassium 5.6 H, Chloride 94 L, Carbon Dioxide 17.0 L, Anion Gap 22 H, BUN 123 H*, Creatinine 11.10 H*, Estim Creat Clear Calc 3.94, Est GFR (MDRD) Af Amer 4 L, Est GFR (MDRD) Non-Af 4 L, BUN/Creatinine Ratio 11.1, Glucose 254 H, Calcium 10.2 H 07/04/21 04:19: Troponin I High Sens 4237 H* 07/04/21 05:25: Troponin I High Sens 4232 H* 07/04/21 05:25: APTT 30.7 07/04/21 05:25: PT 15.6 H, INR 1.3 07/04/21 05:25: Lactic Acid 2.6 H* 07/04/21 06:49: POC Glucose 136 H 07/04/21 09:42: Troponin I High Sens 3808 H* 07/04/21 12:15: POC Glucose 63 L 07/04/21 12:35: APTT 50.2 H 07/04/21 13:27: POC Glucose 180 H Micro: Microbiology 07/04/21 00:55 Interface Orders SARS-CoV-2 Antigen (Rapid) - Final Radiography Diagnostic Testing: Radiology Impression Chest X-Ray 07/03/21 00:40 IMPRESSION: Diffuse left-sided and right upper lobe pneumonitis. Electronically Signed: Idania Love MD at 1:16 EDT , Rhythm Strip Rhythm Strip: A-fib Rate: 40 Ectopy: None
--- NOTE | 2021-07-04 15:36 | CASEMGMT ---
JUSTEN spoke with Dorothea again and she said patient does not need a pre-cert to return unless she is out of the building for 3 days. JUSTEN faxed PT/OT to [facility] and updated progress note. Sia MCKNIGHT
[2021-07-04 16:50] LABS: Bedside Glucose 88 mg/dL (74-106)
--- NOTE | 2021-07-04 17:37 | CON.PCM_ITS ---
Assessment & Plan Assessment/Plan (1) Nausea: PLAN: Her nausea is probably multifactorial and due to poorly controlled diabetes, elevated BUN/creatinine ratio consistent with severe hyperuricemia, anemia chronic disease,, gastritis due to stress gastritis, chronic hypoxia with possible left-sided and upper right lobe pneumonitis. She should undergo an upper endoscopy evaluate upper GI tract. She was explained alternatives, risk, benefits including not withstanding bleeding, infection, sepsis, perforation, need for emergent . She have an ASA of 3. (2) Anemia: PLAN: Anemia chronic disease in the setting of acute blood loss anemia. We will evaluate upper GI tract and possibly lower GI tract. N.p.o. past midnight. HPI Consult Data Date of Consult: 07/04/21 HPI Narrative HPI Narrative: JULISSA GUERRA, is a 65 F who [facility] with worsening [facility]ness of breath. She has a past medical history of end-stage renal disease secondary to poorly controlled diabetes, CVA with left-sided weakness, iron anemia, obstructive sleep apnea, anemia chronic disease. Reportedly per [facility] outside sales representative also saturation was in the 30s. In route to the hospital saturation was in the 70s. Initially she was put on mask and then transition to BiPAP at emergency department. She has missed sessions of dialysis because of nausea and vomiting with dialysis. She did not finish the full course of her last dialysis. At the emergency part patient was found to have a potassium of 7. ED doctor discussed the case with nephrology on-call who stated patient will be dialyzed. I was called to see her due to worsening nausea and anemia. She says that she has not been able to eat and she required Zofran almost on a daily basis. [facility] Medical History (Updated 07/04/21 @ 17:[address] Fields Friend, DO) CAD (coronary artery disease) Callus of foot Cerebral infarction, unspecified Chronic ulcer of left foot with fat layer exposed Delayed wound healing Diabetes mellitus, type II Diabetic foot ulcer associated with type 2 diabetes mellitus Diabetic neuropathy CARMONA (dyspnea on exertion) Hammertoe of left foot Hemiplegia and hemiparesis following cerebral infarction affecting right dominant side Hyperlipidemia Hypertension Infection of left foot Iron deficiency Localized edema Malnutrition Non-healing wound Obesity (BMI 30.0-34.9) NGUYEN (obstructive sleep apnea) Other specified peripheral vascular diseases Problem with dialysis access Problem with dialysis access PVD (peripheral vascular disease) Stroke/cerebrovascular accident Symptomatic anemia Type 2 diabetes mellitus with diabetic polyneuropathy Ulcer of left lower extremity with fat layer exposed Ulcer of right lower extremity with fat layer exposed Walking difficulty due to ankle and foot Xerosis cutis Home Medications vitamin B complex and vitamin C no.20-folic acid 1 mg capsule 1 cap PO MOWEFR 02/27/17 [History Last Taken Unknown] amlodipine 10 mg tablet 10 mg PO DAILY tab 12/15/19 [History Last Taken Unknown] aspirin 81 mg tablet,delayed release 81 mg PO DAILY 12/15/19 [History Last Taken Unknown] atorvastatin 40 mg tablet 80 mg PO QHS tab 12/15/19 [History Last Taken Unknown] clopidogrel 75 mg tablet 75 mg PO DAILY 12/15/19 [History Last Taken Unknown] furosemide 40 mg tablet 40 mg PO Q OTHER DAY tab 12/15/19 [History Last Taken Unknown] metoprolol tartrate 25 mg tablet 37.5 mg PO BID tab 12/15/19 [History Last Taken Unknown] cilostazol 50 mg PO BID 07/04/21 [History Last Taken Unknown] fluvoxamine 50 mg PO DAILY 07/04/21 [History Last Taken Unknown] levetiracetam [Keppra] 250 mg PO MOWEFR 07/04/21 [History Last Taken Unknown] levetiracetam [Keppra] 500 mg PO DAILY 07/04/21 [History Last Taken Unknown] lorazepam [Ativan] 0.5 mg PO Q6H PRN PRN 07/04/21 [History Last Taken Unknown] pantoprazole 40 mg PO DAILY 07/04/21 [History Last Taken Unknown] pentoxifylline 400 mg PO DAILY 07/04/21 [History Last Taken Unknown] Allergy/AdvReac Type Severity Reaction Status Date / Time hydrocodone Allergy Unknown unknown Verified 12/15/19 13:54 iodine Allergy Unknown Unknown Verified 12/15/19 13:54 morphine Allergy Unknown unknown Verified 12/15/19 13:54 oxycodone Allergy Unknown unknown Verified 12/15/19 13:54 latex Allergy Unknown Verified 12/15/19 13:54 Penicillins Allergy Unknown Verified 12/15/19 13:54 shellfish derived Allergy Unknown Verified 12/15/19 13:54 Family History Other CVA (cerebral vascular accident) Cancer Surgical History Presence of surgically created arteriovenous shunt for hemodialysis S/P CABG x 3 Status post transmetatarsal amputation of right foot Stented coronary artery Social History Smoking Status: Never smoker ROS Gastrointestinal Gastrointestinal: Reports dysphagia, heartburn and nausea Physical Exam Const alert General Appearance: cooperative Orientation / Consciousness: oriented to person HEENT hearing grossly normal bilaterally Head and Scalp: normal to inspection Face and Sinus: face symmetric Nose: external nose normal Mouth: oral and palatal mucosa normal Eyes conjunctivae normal General Eye: normal appearance of both eyes Neck full ROM General: normal visual inspection Lymph Lymphatic: no lymphadenopathy noted Chest inspection of chest normal and palpation of chest normal Chest: symmetrical chest wall rise Resp normal respiratory effort Effort and Inspection: able to speak in complete sentences Cardio regular rate GI non-distended Percussion: normal to percussion Rectal Exam: deferred Neuro Speech: speech normal Gait (Neuro): normal gait Lab / Micro Data Result Diagrams: 07/04/21 04:19 07/04/21 04:19 Labs: Laboratory Results - last 24 hr 07/04/21 00:55: WBC 12.1 H, RBC 4.08 L, Hgb 11.4 L, Hct 35.7 L, MCV 87.5, MCH 27.9, MCHC 31.9 L, RDW Std Deviation 55.4 H, RDW Coeff of [place] 17.3 H, Plt Count 391, MPV 9.7, Immature Gran % (Auto) 0.600, Neut % (Auto) 92.9 H, Lymph % (Auto) 2.6 L, [place] % (Auto) 3.7, Eos % (Auto) 0.0, Baso % (Auto) 0.2, Absolute Neuts (auto) 11.3 H, Absolute Lymphs (auto) 0.31 L, Nucleated RBC % 0, Differential Comment SCANNED 07/04/21 00:55: Sodium 134 L, Potassium 7.0 H*, Chloride 94 L, Carbon Dioxide 19.0 L, Anion Gap 21 H, BUN 133 H*, Creatinine 11.10 H*, Estim Creat Clear Calc 4.49, Est GFR (MDRD) Af Amer 4 L, Est GFR (MDRD) Non-Af 4 L, BUN/Creatinine Ratio 12.0, Glucose 190 H, Calcium 10.3 H, Troponin I High Sens 3950 H* 07/04/21 01:49: Lactic Acid 2.1 H* 07/04/21 02:31: POC Glucose 167 H 07/04/21 04:19: WBC 9.6, RBC 3.25 L, Hgb 9.3 L, Hct 29.0 L, MCV 89.2, MCH 28.6, MCHC 32.1, RDW Std Deviation 56.0 H, RDW Coeff of [place] 17.2 H, Plt Count 301, MPV 9.6, Immature Gran % (Auto) 0.300, Neut % (Auto) 88.2 H, Lymph % (Auto) 5.9 L, [place] % (Auto) 5.5, Eos % (Auto) 0.0, Baso % (Auto) 0.1, Absolute Neuts (auto) 8.4 H, Absolute Lymphs (auto) 0.57 L, Nucleated RBC % 0, Differential Comment SCANNED 07/04/21 04:19: Sodium 133 L, Potassium 5.6 H, Chloride 94 L, Carbon Dioxide 17.0 L, Anion Gap 22 H, BUN 123 H*, Creatinine 11.10 H*, Estim Creat Clear Calc 3.94, Est GFR (MDRD) Af Amer 4 L, Est GFR (MDRD) Non-Af 4 L, BUN/Creatinine Ratio 11.1, Glucose 254 H, Calcium 10.2 H 07/04/21 04:19: Troponin I High Sens 4237 H* 07/04/21 05:25: Troponin I High Sens 4232 H* 07/04/21 05:25: APTT 30.7 07/04/21 05:25: PT 15.6 H, INR 1.3 07/04/21 05:25: Lactic Acid 2.6 H* 07/04/21 06:49: POC Glucose 136 H 07/04/21 09:42: Troponin I High Sens 3808 H* 07/04/21 12:15: POC Glucose 63 L 07/04/21 12:35: APTT 50.2 H 07/04/21 13:27: POC Glucose 180 H 07/04/21 16:43: POC Glucose 88 Micro: Microbiology 07/04/21 12:30 Stool C. difficile GDH Antigen & Toxins - Final Toxigenic C. difficile 07/04/21 12:30 Stool C. difficile DNA Amplification - Final 07/04/21 00:55 Interface Orders SARS-CoV-2 Antigen (Rapid) - Final Rhythm Strip Rhythm Strip: A-fib Rate: 40 Ectopy: None Radiology Impression Chest X-Ray 07/03/21 00:40 IMPRESSION: Diffuse left-sided and right upper lobe pneumonitis. Electronically Signed: Idania Love MD at 1:16 EDT , Charges/Coding Visit Charges Inpatient E&M: 47393 Init Hosp L2
[2021-07-04] MEDS: Vancomycin 125 MG/5 ML Susp PO.SYRINGE PO (18:26)
[2021-07-04] MEDS: LORazepam 0.5 MG Tablet PO (21:18)
[2021-07-04] MEDS: Cilostazol 50 MG Tablet PO (21:28)
[2021-07-04 23:16] LABS: Bedside Glucose 85 mg/dL (74-106)
--- NOTE | 2021-07-04 23:22 | NURSING ---
Patient blood glucose 85, had pt drink orange juice, no symptoms
[2021-07-05] VITALS (18 sets, daily range): BP systolic 94–166; BP diastolic 50–71; PULSE 70–88; RESP 14–20; TEMP 36.4–37; O2SAT 87–100
--- NOTE | 2021-07-05 | EGD_PTH ---
PATIENT: JULISSA GUERRA LOC: [facility] U#:[id number] AGE/SX: 65/F ROOM: [facility] RE07/04/[address]: Dr. Lisa Ramirez MD : 1955 BED: 1 DIS: 07/06/2021 SPEC #: [id number] RECD: 07/05/21 20:15 STATUS: ELIEZER CORRAL #: [id number] DRU: 07/05/21 00:[address]: Lisa Ramirez DEPT: SURGICAL PATHOLOGY RECD BY: Rodrigue Wylie ENTERED: 07/06/21 08:47 SP TYPE: EGD BIOPSY OT DR: MD Dr. Brynn Rawls MD Dr. Paul Moodispaw, MD Dr. Paul Nielsen, MD Tissues: A - Duodenum, NOS B - Gastric mucous membrane C - Esophageal mucous membrane Procedures: Special Stain Group II Surgery Specimen Level IV Alcian Blue/PAS (control) HEADER OPERATION: EGD ([facility]) PRE-OP DIAGNOSIS: Anemia, GI bleed TISSUE SUBMITTED: A ? Duodenum biopsy, B ? Gastric body biopsy, C ? Distal esophagus biopsy MICROSCOPIC DIAGNOSIS A. Duodenum, biopsy: A fragment of duodenal mucosa with mild Deepa gland hyperplasia. B. Gastric body, biopsy: Mild gastritis. See microscopic description and comment. C. 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 Chronic inflammation. Negative for dysplasia. See comment. SJ:micaela 07/07/2021 COMMENT B. The results of immunohistochemistry for Helicobacter pylori will be reported separately ([id number]). C. Immunohistochemistry ([id number]) for P53 and Ki-67 will be performed and results will be reported separately. Alcian blue/PAS stain with matched control is used in the evaluation of the specimen. MICROSCOPIC DESCRIPTION Slides are reviewed. B. The specimen shows fragments of gastric mucosa with chronic inflammatory cell infiltrates in the lamina propria consisting of lymphocytes and plasma cells, consistent with mild chronic gastritis. GROSS DESCRIPTION A - Received in fixative is one container labeled with the patient's name and designated duodenum biopsy. The specimen consists of one irregular fragment of light mishra soft tissue that measures 0.3 x 0.3 x 0.1 cm. The specimen is totally submitted in one cassette. B - Received in fixative is one container labeled with the patient's name and designated gastric body biopsy. The specimen consists of two irregular fragments of light mishra soft tissue that in aggregate measure 0.8 x 0.3 x 0.1 cm. The specimen is totally submitted in one cassette. C - Received in fixative is one container labeled with the patient's name and designated distal esophagus biopsy. The specimen consists of one irregular fragment of light mishra soft tissue that measures 0.5 x 0.2 x 0.1 cm. The specimen is totally submitted in one cassette. / SJ:rg 07/06/2021 TC:3 CPT: 87253 x3, 98966
--- NOTE | 2021-07-05 01:07 | NURSING ---
Vancomysin PO not given 0000 07/05, patient not aroused enough for safe PO administration
[2021-07-05 03:56] LABS: Absolute Lymphocyte Count 1.76 X10^3/uL (0.83-4.51); Absolute Neutrophil Count 2.4 X10^3/uL (2.0-7.7); Basophil# 0.04 X10^3/uL; Basophil% 0.8 % (0-1); Eosinophil# 0.05 X10^3/uL; Eosinophils% 1.1 % (0-5); Hematocrit 25.8 % (37-47); Hemoglobin 8.3 g/dL (12.0-15.0); Lymphocyte # 1.76 X10^3/ul (0.83-4.51); Lymphocyte % 37.1 % (19-41); Mean Corp Hgb Conc 32.2 g/dL (32-36); Mean Corpuscular Volume 87.2 fL (81-99); Mean Platelet Vol. 9.4 fl (6.2-12.0); Monocyte# 0.45 X10^3/uL; Monocyte% 9.5 % (0-10); NRBC Flagged by Analyzer 0 % (0-5); Neutrophil # 2.43 X10^3/uL (2.7-7.7); Neutrophil % 51.1 % (47-70); Platelet Count 248 K/mm3 (150-450); RBC Distribution Width CV 17.3 % (11.6-14.6); RBC Distribution Width SD 56.1 fl (35.1-43.9); Red Blood Count 2.96 M/mm3 (4.2-5.4); White Blood Count 4.8 K/mm3 (4.4-11.0)
[2021-07-05] MEDS: hydrALAZINE 20 MG/ML Vial 5 MG IV (03:59)
[2021-07-05] MEDS: 0.9% Saline Lock 10 ML Syringe IV ×4 (03:59→20:41)
[2021-07-05 04:08] LABS: International Normalized Ratio 1.3; Prothrombin Time (Protime)PT. 15.5 SECONDS (11.7-14.9)
[2021-07-05 04:10] LABS: Partial Thromboplast Time 55.8 Seconds (24.1-36.2)
[2021-07-05 04:22] LABS: Anion Gap 14 (5-15); BUN 44 mg/dL (7-18); BUN/Creat Ratio 8.9 RATIO (10-20); Calcium,Total 8.4 mg/dL (8.5-10.1); Chloride 98 mmol/L (98-107); Creatinine, Serum 4.96 mg/dL (0.55-1.02); EST Glomerular Filtration Rate 9 mL/min (>60); Est Glom Filt Rate - Afr Amer 11 mL/min (>60); Estimated Creatinine Clearance 8.82 ml/min; Glucose 86 mg/dL (74-106); Potassium 3.9 mmol/L (3.5-5.1); Sodium Level 137 mmol/L (136-145)
[2021-07-05 04:35] LABS: Albumin, Serum 2.5 g/dL (3.2-5.0); BUN 45 mg/dL (7-18); BUN/Creat Ratio 9.1 RATIO (10-20); Calcium,Total 8.7 mg/dL (8.5-10.1); Chloride 98 mmol/L (98-107); Creatinine, Serum 4.95 mg/dL (0.55-1.02); EST Glomerular Filtration Rate 9 mL/min (>60); Est Glom Filt Rate - Afr Amer 11 mL/min (>60); Estimated Creatinine Clearance 8.84 ml/min; Glucose 88 mg/dL (74-106); Phosphorus 3.9 mg/dL (2.5-4.9); Potassium 3.9 mmol/L (3.5-5.1); Sodium Level 137 mmol/L (136-145)
[2021-07-05] MEDS: Vancomycin 125 MG/5 ML Susp PO.SYRINGE PO ×3 (05:33→23:56)
[2021-07-05 07:05] LABS: Bedside Glucose 74 mg/dL (74-106)
--- NOTE | 2021-07-05 08:40 | RAD_ITS ---
STUDY: X-RAY CHEST REASON FOR EXAM: Female, 65 years old. Sob TECHNIQUE: Single AP portable view of the chest. COMPARISON: Comparison is made with prior study dated 07/04/2021. FINDINGS: EKG electrodes are seen. Persistent infiltrates in the left hemithorax as well as at the right lung base although there has been improvement. Persistent vascular congestion and mild degree of CHF. Blunting of the left costophrenic angle. Sternal cerclage wires are present from a prior sternotomy. Normal mediastinum and haley. Normal visualized pulmonary arteries. There is atherosclerotic calcification of the aortic arch with tortuosity. There are degenerative changes of the visualized thoracic spine. Normal visualized ribs, clavicles, and shoulders. There is no demonstrated abnormality of the visualized soft tissue structures of the upper abdomen. RAD/Chest 1 View (Portable) IMPRESSION: Since prior study, there has been improvement of the aeration of the left lung with residual infiltrates. Mild degree of persistent CHF. Further follow-up recommended. Electronically Signed: Yovany Rosa MD at 12:42 EDT ,
[2021-07-05 10:23] LABS: Partial Thromboplast Time 33.5 Seconds (24.1-36.2)
[2021-07-05] MEDS: Ondansetron 4 MG/2 ML Vial IV (10:57)
[2021-07-05] MEDS: LORazepam 0.5 MG Tablet PO (11:05)
[2021-07-05 11:36] LABS: Bedside Glucose 86 mg/dL (74-106)
--- NOTE | 2021-07-05 13:45 | PN.RENAL_ITS ---
Subjective Subjective Seen on dialysis, tolerating treatment well. Patient is more alert and oriented today. Denies any complaints. Objective Data Objective Data Vital Signs: Vital Signs Temp Pulse Resp BP Pulse Ox 97.7 F L 75 18 166/68 H 97 07/05/21 09:40 07/05/21 09:40 07/05/21 09:40 07/05/21 09:40 07/05/21 09:40 Oxygen Flow Rate (L/min) 2 Oxygen Delivery Method Room Air Weight: 58.6 kg Body Mass Index (BMI) 23.6 Intake & Output: Intake and Output for Last 24 Hours 07/03/21 07/04/21 07/05/21 23:59 23:59 23:59 Intake Total 1261.5 / 1281.5 200.67 / 200.67 Output Total 0 / 0 0 / 0 Balance 1261.5 / 1281.5 200.67 / 200.67 Lab / Micro Data Result Diagrams: 07/05/21 03:50 07/05/21 03:50 Labs: Laboratory Results - last 24 hr 07/04/21 16:43: POC Glucose 88 07/04/21 20:20: APTT 44.0 H 07/04/21 21:13: POC Glucose 85 07/05/21 03:50: WBC 4.8, RBC 2.96 L, Hgb 8.3 L, Hct 25.8 L, MCV 87.2, MCH 28.0, MCHC 32.2, RDW Std Deviation 56.1 H, RDW Coeff of [place] 17.3 H, Plt Count 248, MPV 9.4, Immature Gran % (Auto) 0.400, Neut % (Auto) 51.1, Lymph % (Auto) 37.1, Becker % (Auto) 9.5, Eos % (Auto) 1.1, Baso % (Auto) 0.8, Absolute Neuts (auto) 2.4, Absolute Lymphs (auto) 1.76, Nucleated RBC % 0 07/05/21 03:50: Sodium 137, Potassium 3.9, Chloride 98, Carbon Dioxide 26.0, BUN 45 H, Creatinine 4.95 H, Estim Creat Clear Calc 8.84, Est GFR (MDRD) Af Amer 11 L, Est GFR (MDRD) Non-Af 9 L, BUN/Creatinine Ratio 9.1 L, Glucose 88, Calcium 8.7, Phosphorus 3.9, Albumin 2.5 L 07/05/21 03:50: PT 15.5 H, INR 1.3, APTT 55.8 H 07/05/21 03:50: Sodium 137, Potassium 3.9, Chloride 98, Carbon Dioxide 25.0, Anion Gap 14, BUN 44 H, Creatinine 4.96 H, Estim Creat Clear Calc 8.82, Est GFR (MDRD) Af Amer 11 L, Est GFR (MDRD) Non-Af 9 L, BUN/Creatinine Ratio 8.9 L, Glucose 86, Calcium 8.4 L 07/05/21 06:45: POC Glucose 74 07/05/21 10:00: APTT 33.5 07/05/21 11:01: POC Glucose 86 Micro: Microbiology 07/04/21 12:30 Stool Stool Occult Blood (MELODY) - Final 07/04/21 12:30 Stool C. difficile GDH Antigen & Toxins - Final Toxigenic C. difficile 07/04/21 12:30 Stool C. difficile DNA Amplification - Final 07/04/21 00:55 Interface Orders SARS-CoV-2 Antigen (Rapid) - Final Radiography Diagnostic Testing: Radiology Impression Chest X-Ray 07/05/21 08:40 IMPRESSION: Since prior study, there has been improvement of the aeration of the left lung with residual infiltrates. Mild degree of persistent CHF. Further follow-up recommended. Electronically Signed: Yovany Rosa MD at 12:42 EDT , Rhythm Strip Rhythm Strip: A-fib Rate: 40 Ectopy: None Physical Exam Narrative Const: A&Ox3 HEENT: PERRLA, oral mucosa dry Cardio: S1S2 RRR Abdomen: soft, nontender, +BS x4quad Resp: clear anterior and posteriorly Extrem: no edema. AVF + accessed for dialysis Assessment & Plan Assessment/Plan (1) ESRD on dialysis: (2) Hyperkalemia, diminished renal excretion: (3) Elevated troponin: (4) Acute respiratory failure with hypoxia: PLAN: - Outpatient dialysis schedule is Saturday, Saturday, Saturday, Saturday. HD today over 3.5 hours, 3K, UF around 2.5 L as patient/blood pressure tolerates. Likely patient will have new lower dry weight by time of discharge. We will plan for next dialysis Saturday unless acute need arises. -Elevated troponins, on heparin gtt. -Anemia of CKD, will follow hgb trends. ANDRA with HD today - BPs acceptable, on norvasc. Recommend holding am dose on HD days. - oral vanco for Cdiff - GI consulted for nausea and acute anemia. Possible scopes tomorrow. On PPI gtt. Stool OB negative - today patient states she understands the importance of needing dialysis and wants to continue dialysis scheduled at [facility].
--- NOTE | 2021-07-05 13:55 | PN.HOSP_ITS ---
Subjective Subjective Follow-up on acute metabolic encephalopathy/acute C. difficile/hyperkalemia/missed dialysis: Patient was seen and examined. She is much more awake and alert. She is on 2 L of oxygen. Patient had diarrhea, stool for C. difficile was positive. Started on oral vancomycin. Patient was seen on dialysis. Her daughter was at the bedside. Patient is going for EGD today with GI Discussed at length patient overall goals of care; reiterated with patient that if she does not go for dialysis then she stands a chance of dying. Patient has signed up with palliative care as of this morning. Her daughter stated that they have had several discussions about hospice. Patient appears hesitant about hospice because she stated that she wanted to naturally. I explained the concept of hospice to the patient. I asked that she thinks about it. Objective Data Objective Data Vital Signs: Vital Signs Temp Pulse Resp BP Pulse Ox 97.7 F L 75 18 166/68 H 97 07/05/21 09:40 07/05/21 09:40 07/05/21 09:40 07/05/21 09:40 07/05/21 09:40 Oxygen Flow Rate (L/min) 2 Oxygen Delivery Method Room Air Weight: 58.6 kg Body Mass Index (BMI) 23.6 Intake & Output: Intake and Output for Last 24 Hours 07/03/21 07/04/21 07/05/21 23:59 23:59 23:59 Intake Total 1261.5 / 1281.5 200.67 / 200.67 Output Total 0 / 0 0 / 0 Balance 1261.5 / 1281.5 200.67 / 200.67 Lab / Micro Data Result Diagrams: 07/05/21 03:50 07/05/21 03:50 Labs: Laboratory Results - last 24 hr 07/04/21 16:43: POC Glucose 88 07/04/21 20:20: APTT 44.0 H 07/04/21 21:13: POC Glucose 85 07/05/21 03:50: WBC 4.8, RBC 2.96 L, Hgb 8.3 L, Hct 25.8 L, MCV 87.2, MCH 28.0, MCHC 32.2, RDW Std Deviation 56.1 H, RDW Coeff of Milton 17.3 H, Plt Count 248, MPV 9.4, Immature Gran % (Auto) 0.400, Neut % (Auto) 51.1, Lymph % (Auto) 37.1, [place] % (Auto) 9.5, Eos % (Auto) 1.1, Baso % (Auto) 0.8, Absolute Neuts (auto) 2.4, Absolute Lymphs (auto) 1.76, Nucleated RBC % 0 07/05/21 03:50: Sodium 137, Potassium 3.9, Chloride 98, Carbon Dioxide 26.0, BUN 45 H, Creatinine 4.95 H, Estim Creat Clear Calc 8.84, Est GFR (MDRD) Af Amer 11 L, Est GFR (MDRD) Non-Af 9 L, BUN/Creatinine Ratio 9.1 L, Glucose 88, Calcium 8.7, Phosphorus 3.9, Albumin 2.5 L 07/05/21 03:50: PT 15.5 H, INR 1.3, APTT 55.8 H 07/05/21 03:50: Sodium 137, Potassium 3.9, Chloride 98, Carbon Dioxide 25.0, Anion Gap 14, BUN 44 H, Creatinine 4.96 H, Estim Creat Clear Calc 8.82, Est GFR (MDRD) Af Amer 11 L, Est GFR (MDRD) Non-Af 9 L, BUN/Creatinine Ratio 8.9 L, Glucose 86, Calcium 8.4 L 07/05/21 06:45: POC Glucose 74 07/05/21 10:00: APTT 33.5 07/05/21 11:01: POC Glucose 86 Micro: Microbiology 07/04/21 12:30 Stool Stool Occult Blood (MELODY) - Final 07/04/21 12:30 Stool C. difficile GDH Antigen & Toxins - Final Toxigenic C. difficile 07/04/21 12:30 Stool C. difficile DNA Amplification - Final 07/04/21 00:55 Interface Orders SARS-CoV-2 Antigen (Rapid) - Final Radiography Diagnostic Testing: Radiology Impression Chest X-Ray 07/05/21 08:40 IMPRESSION: Since prior study, there has been improvement of the aeration of the left lung with residual infiltrates. Mild degree of persistent CHF. Further follow-up recommended. Electronically Signed: Yovany Rosa MD at 12:42 EDT , Rhythm Strip Rhythm Strip: A-fib Rate: 40 Ectopy: None Physical Exam Narrative Physical exam: General: Alert, Oriented x3, Cooperative, No apparent distress, awake, alert, oriented times HEENT: Atraumatic Oral: Moist Mucosa Neck: Supple Lungs: Diminished to auscultation Cardiovascular: HS I+II, regular, no murmurs Abdomen: Bowel Sounds Present, Soft, Non Tender Extremities: Bilateral trace edema Assessment & Plan Assessment/Plan (1) Acute respiratory failure with hypoxia: (2) Hyperkalemia, diminished renal excretion: PLAN: 1. Acute hypoxemic respiratory failure with hypoxia secondary to flu id overload from missed dialysis Patient is currently on 2 L oxygen, wean off oxygen 2. Hyperkalemia, improved, status post treatment with calcium gluconate, dextrose, albuterol 3. Elevated troponin, unclear etiology, Will consult cardiology Continue on aspirin and Plavix 4. Intractable nausea, concerning for possible gastritis, GI consulted 5. Acute nonsevere C. difficile, continue oral vancomycin 6. ESRD on hemodialysis, Saturday?Saturday?Saturday Patient with history of noncompliance with dialysis Palliative care consulted 7. Type II DM 8. Hypertension, uncontrolled today, continue amlodipine, hydralazine as needed 9. Left plantar wound, chronic, continue wound dressing, wound RN consult 10. DVT prophylaxis - Heparin SC Charges/Coding Visit Charges Inpatient E&M: 13147 Subs Hosp L2
[2021-07-05] MEDS: Epoetin Alfa epbx 10,000 UNITS/ML 20000 UNIT IV (15:17)
--- NOTE | 2021-07-05 15:23 | NURSING ---
AM IV protonix late d/t pt getting dialysis.
--- NOTE | 2021-07-05 15:26 | DIALYSIS ---
Hemodialysis x3.5 hours completed at 1450 on a 3K bath, tolerated well, UF 2500mL, Retacrit given as ordered, accessed via LFA AVF using 15G needles, worked well, needles pulled post tx and stasis achieved without issue, next tx planned for Saturday
[2021-07-05 16:01] LABS: Bedside Glucose 64 mg/dL (74-106)
--- NOTE | 2021-07-05 16:30 | IMM_PTH ---
PATIENT: JULISSA GUERRA LOC: [facility] U#:[id number] AGE/SX: 65/F ROOM: [facility] RE07/04/[address]: Dr. Lisa Ramirez MD : 1955 BED: 1 DIS: 07/06/2021 SPEC #: [id number] RECD: 07/06/21 09:54 STATUS: ELIEZER REQ #: [id number] DRU: 07/05/21 16:[address]: Ra Jamarhsaan DEPT: IMMUNOHISTOCHEMISTRY RECD BY: Lacey Crocker ENTERED: 07/06/21 09:57 SP TYPE: IMMUNO OTHR DR: MD Dr. Nestor Rosas MD Dr. Natthavat Tanphaichitr, MD Dr. Paul Moodispaw, MD Dr. Paul Nielsen, MD Tissues: B - Stomach, NOS C - Esophagus, NOS Procedures: H Pylori (initial) P53 (initial) KI-67 (add) PHYSICIAN & [address] [address] SPECIMEN INFORMATION: Tissue Source: B ? Gastric body biopsy, C ? Distal esophagus biopsy Clinical Info: Anemia, GI bleed Specimen Number: [id number] B & C CPT code: 12448 x2, 47590 METHODOLOGY: Deparaffinized sections of prefer/formalin-fixed tissue or PAP/DQ stained slides are incubated with monoclonal/polyclonal antibodies/oligonucleotide probes. Localization is made via biotin free immunoperoxidase method. Appropriate controls are performed and reacted as expected. Results on target cell population are indicated in the following table: RESULTS: ANTIBODY / CLONE RESULT Block B H Pylori (polyclonal) negative Block C P53 (DO-7) negative Ki-67 (30-9) positive, very low These tests were developed and their performance characteristics determined by [facility]. They may not have been cleared or approved by the U.[place]. Food and Drug Administration. The FDA has determined that such clearance or approval is not necessary. The above immunohistochemical/dualISH markers are ordered and reviewed by the Pathologist. INTERPRETATION: B. Gastric body, biopsy: Negative for Helicobacter pylori organisms. C. Distal esophagus, biopsy: Negative for dysplasia. SJ:micaela 07/07/2021
--- NOTE | 2021-07-05 17:14 | CON.PCM.CA_ITS ---
Assessment & Plan Assessment/Plan (1) Acute non-ST elevation myocardial infarction (NSTEMI): PLAN: The patient has findings compatible with an acute non-ST segment elevation CO. Based upon review of her case this appears to be compatible with a type II event brought out by her hypoxemia superimposed upon her anemia superimposed upon her underlying cardiovascular condition. At the present time she is being monitored. It may not be unreasonable to repeat a transthoracic echocardiogram to reassess her ventricular wall motion and systolic function for any significant changes compared to the previous outside echocardiograms. She should continue medical therapy with agents such as aspirin, antiplatelet agents if tolerated, nitrates if needed, beta-blockers if tolerated based upon her cardiac rate, afterload reducing agents as she is able, lipid-lowering agents, and anticoagulant agents as deemed appropriate. She does not appear at this time to be an ideal candidate for additional noninvasive or invasive cardiovascular evaluation. Of note she states she would not want to go through a diagnostic cardiac catheterization. (2) CAD (coronary artery disease): PLAN: She has a history of CAD. She has been evaluated locally and at [facility] in [place], [place]. Her most recent cardiac catheterization report available for review as noted above. At the present time she will continue medical management. (3) Stented coronary artery: PLAN: She does have reports of PCI to the left main coronary artery and the LCx. At the present time she we will continue medical therapy. If she were ever thought to be a candidate for a repeat invasive evaluation such as a diagnostic cardiac catheterization and she agreed to such it may not be unreasonable, based upon her extensive CAD and the sites of her previous PCI procedures including her left main coronary artery that she be evaluated at a tertiary care center where she could receive high risk intervention if need be. (4) S/P CABG x 3: PLAN: Based upon her most recent cardiac catheterization report available for review it appears that her grafts were patent at the time. She will continue medical management. (5) Atrial fibrillation: PLAN: Her cardiac rate and rhythm will be followed. It may be challenging to use other medications for her underlying cardiovascular status such as beta-blockers if her cardiac rate remains low. However if this changes as her clinical course progresses then consideration could be given to the addition of beta-alden therapy. If she remains in atrial fibrillation then she would need to be considered for long-term oral systemic anticoagulant therapy unless otherwise contraindicated by her multiple comorbidities. Her medications can be adjusted based upon changes in her cardiac rate and rhythm as her electrolytes change, her renal function changes, etc. (6) Hyperlipidemia: PLAN: She should continue risk factor evaluation care as tolerated. (7) Hypertension: PLAN: Her blood pressure can be followed with her medicines adjusted based upon her vital signs and her other objective findings such as her renal function. (8) Diabetes mellitus, type II: PLAN: She will continue evaluation care per internal medicine. (9) Infection of left foot: PLAN: She will continue evaluation by internal medicine and other surgical specialties as deemed appropriate. (10) Symptomatic anemia: PLAN: Her hemoglobin does need to be monitored. If her hemoglobin continues to decline not only will she need further evaluation such as her ongoing gastroenterology evaluation but she may also need PRBC transfusions. (11) ESRD on dialysis: PLAN: She has reinitiated dialysis therapy. Hopefully this will help bring her electrolytes and her volume status under better control. She states she does not really want to continue dialysis because of the way it it makes her feel. She knows if she discontinues dialysis that this could lead to her ultimate demise in the near future. She apparently has been given the option of hospice therapy if she no longer wants to proceed with evaluation and care and dialysis. However she apparently has declined that option as well at this time. Addt'l Comments This note was generated using a voice recognition system and there may be incorrect words, spelling or punctuation that were not noted when reviewing the office note prior to saving. HPI Consult Data Date of Consult: 07/05/21 HPI Narrative HPI Narrative: JULISSA GUERRA, is a 65-year-old white female who presents for cardiovascular consultation based upon concerns of elevated cardiac enzymes/high-sensitivity troponin I levels superimposed upon a history of underlying CAD, PCI, CABG, hyperlipidemia, hypertension, diabetes mellitus, CVA, chronic renal failure on chronic hemodialysis, bacteremia, osteomyelitis, and currently C. difficile toxin positive. She has previously been cared for locally by Dr. Poncho Chicas via cardiovascular consultation and diagnostic cardiac catheterization in July 2013. At that time she underwent a diagnostic cardiac catheterization that demonstrated the left ventricle to have an LVEF of 50% with moderately elevated left ventricular end-diastolic pressure and s ignificant multivessel CAD (please see report below). It appears she was subsequently recommended for transfer to [facility] for further evaluation and care with PCI. Based upon medical records available for review it does not appear that the patient has had subsequent follow-up cardiovascular evaluation at [facility] with [facility]. It appears she has been following at other tertiary care centers for her cardiovascular condition. Based upon her recollection and medical records received it appears she was recently being evaluated through the [facility] at [facility] for multiple medical concerns including abnormal cardiac enzymes as well as bacteremia. Based upon the information obtained it appears she underwent a transthoracic echocardiogram on 05-31-2021. Per the report the left ventricle was considered to have an LVEF of 45%, mild concentric LVH, the mitral valve had mild annular calcification and mildly thickened leaflets with no evid ence of stenosis or regurgitation, the tricuspid valve had no evidence of stenosis or significant regurgitation, the aortic valve was reported as trileaflet and moderately thickened/calcified with fusion of the left/noncoronary commissure with a mean systolic gradient of 12 mmHg and a valve area reported at 0.9 cm?-likely underestimated. The pulmonic valve had mild VT. The aorta was reported as normal in size. It appears she subsequently underwent transesophageal echocardiogram based upon concerns of possible endocarditis. Again the left ventricle was thought to have an LVEF 45%. No vegetation or other evidence of infectious endocarditis was reported. Based upon the cardiovascular consultation report available for review it appears that the patient was recommended for continued medical management. There was no recommendations for any additional noninvasive or invasive evaluation. According to the current medical record the patient was reported as, as she has been in the past based upon other information available for review, not participating in her hemodialysis therapy. She states that is because it makes her sick . She became progressively short of breath. She was reported by her ECF staff as having O2 saturations potentially as low as 30% range. She was subsequently transported to [facility] where her oxygen saturation was reportedly in the 70% range. In the emergency department she was subsequently transitioned to a BiPAP device. During her evaluation she was found to have electrolyte abnormalities with a potassium level reported at 7. She was treated medically and with request for nephrology to initiate hemodialysis. During this time she was noted to have an elevated high-sensitivity troponin I level. Her ECG appeared to demonstrate an underlying atrial fibrillation with a slow ventricular response with a septal CO pattern of indeterminate age. A chest x-ray was interpreted by radiology as demonstrating bilateral upper lobe p neumonitis. She was also noted to have she was subsequently placed in the PCU for further evaluation and care. She has been receiving medical management and hemodialysis. She states she has not been having chest discomfort. She believes her breathing has improved since being in the hospital and initiating hemodialysis. She does not recall any episodes of near syncope or syncope. She states that she has had a right partial foot amputation in the past. She notes recently during her hospitalization in [place], [place] that she had additional left toes removed. She states this was related to osteomyelitis. Her troponin I levels on admission were reported at 3950 with a subsequent increase to 4237 and a subsequent decrease to 3808. [facility] Medical History CAD (coronary artery disease) Callus of foot Cerebral infarction, unspecified Chronic ulcer of left foot with fat layer exposed Delayed wound healing Diabetes mellitus, type II Diabetic foot ulcer associated with type 2 diabetes mellitus Diabetic neuropathy CARMONA (dyspnea on exertion) Hammertoe of left foot Hemiplegia and hemiparesis following cerebral infarction affecting right dominant side Hyperlipidemia Hypertension Infection of left foot Iron deficiency Localized edema Malnutrition Non-healing wound Obesity (BMI 30.0-34.9) NGUYEN (obstructive sleep apnea) Other specified peripheral vascular diseases Problem with dialysis access Problem with dialysis access PVD (peripheral vascular disease) Stroke/cerebrovascular accident Symptomatic anemia Type 2 diabetes mellitus with diabetic polyneuropathy Ulcer of left lower extremity with fat layer exposed Ulcer of right lower extremity with fat layer exposed Walking difficulty due to ankle and foot Xerosis cutis Home Medications vitamin B complex and vitamin C no.20-folic acid 1 mg capsule 1 cap PO MOWEFR 02/27/17 [History Last Taken Unknown] amlodipine 10 mg tablet 10 mg PO DAILY tab 12/15/19 [History Last Taken Unknown] aspirin 81 mg tablet,delayed release 81 mg PO DAILY 12/15/19 [History Last Taken Unknown] atorvastatin 40 mg tablet 80 mg PO QHS tab 12/15/19 [History Last Taken Unknown] clopidogrel 75 mg tablet 75 mg PO DAILY 12/15/19 [History Last Taken Unknown] furosemide 40 mg tablet 40 mg PO Q OTHER DAY tab 12/15/19 [History Last Taken Unknown] metoprolol tartrate 25 mg tablet 37.5 mg PO BID tab 12/15/19 [History Last Taken Unknown] cilostazol 50 mg PO BID 07/04/21 [History Last Taken Unknown] fluvoxamine 50 mg PO DAILY 07/04/21 [History Last Taken Unknown] levetiracetam [Keppra] 250 mg PO MOWEFR 07/04/21 [History Last Taken Unknown] levetiracetam [Keppra] 500 mg PO DAILY 07/04/21 [History Last Taken Unknown] lorazepam [Ativan] 0.5 mg PO Q6H PRN PRN 07/04/21 [History Last Taken Unknown] pantoprazole 40 mg PO DAILY 07/04/21 [History Last Taken Unknown] pentoxifylline 400 mg PO DAILY 07/04/21 [History Last Taken Unknown] Allergy/AdvReac Type Severity Reaction Status Date / Time hydrocodone Allergy Unknown unknown Verified 12/15/19 13:54 iodine Allergy Unknown Unknown Verified 12/15/19 13:54 morphine Allergy Unknown unknown Verified 12/15/19 13:54 oxycodone Allergy Unknown unknown Verified 12/15/19 13:54 latex Allergy Unknown Verified 12/15/19 13:54 Penicillins Allergy Unknown Verified 12/15/19 13:54 shellfish derived Allergy Unknown Verified 12/15/19 13:54 Family History Other CVA (cerebral vascular accident) Cancer Surgical History Presence of surgically created arteriovenous shunt for hemodialysis S/P CABG x 3 Status post transmetatarsal amputation of right foot Stented coronary artery Social History Smoking Status: Never smoker ROS Constitutional Constitutional: Reports as per HPI Eyes Eyes: Reports as per HPI ENT HEENT: Reports as per HPI Cardiovascular Cardiovascular: Reports dyspnea Respiratory/Chest Respiratory/Chest: Reports dyspnea Gastrointestinal Gastrointestinal: Reports diarrhea, nausea and vomiting Genitourinary Genitourinary: Reports as per HPI Musculoskeletal Musculoskeletal: Reports as per HPI Integumentary Integumentary: Reports as per HPI Neurologic Neurologic: Reports as per HPI Psychiatric Psychiatric: Reports as per HPI Physical Exam Const alert, oriented x3 and no apparent distress Orientation / Consciousness: awake HEENT normocephalic, head/scalp atraumatic and hearing grossly normal bilaterally Eyes PERRL, EOMs intact bilaterally and conjunctivae normal Neck full ROM, supple and no JVD Chest Chest: midline sternotomy incision Resp Auscultation: diminished lung sounds bilateral lower Cardio regular rate, regular rhythm, S1 normal heart sound and S2 normal heart sound GI normal to inspection, nondistended, normoactive bowel sounds Extremity Extremity Narrative: Left foot: Noted to be in a surgical bandage Neuro oriented x3 Psych mental status grossly normal Risk Stratification Risk Stratification Applicable: Yes Age >/= 65: Yes >/= 3 CAD Risk Factors (HTN, HLD, DM, family hx of CAD, or current smoker): Yes Aspirin Use in the Past 7 Days: Yes Severe Angina (>/= episodes in 24 hours): No EKG ST Changes >/= 0.5mm: No Positive Cardiac Marker: Yes BETTYE Risk Stratification Score: 4 BETTYE % Risk: 20% Risk Procedure Criteria Type of Procedure Procedure Type: Elective Elective Risks - COVID COVID Risk Discussion: The surgeon/proceduralist and patient have discussed in detail the risk of exposure to and/or potential harm posed by the COVID-19 virus with having a surgery/procedure at this time versus the risk of delaying the surgery/procedure. It is not possible to know either the risk of delaying the surgery or procedure or chance of getting an infection with perfect accuracy, but a joint decision was made between the patient and the surgeon/proceduralist to proceed at this time with the scheduled surgery/procedure as indicated on the consent form. Objective Data Vital Signs: Vital Signs Temp Pulse Resp BP Pulse Ox 98 F 80 20 H 152/71 H 98 07/05/21 15:20 07/05/21 15:20 07/05/21 15:20 07/05/21 15:20 07/05/21 15:20 Oxygen Flow Rate (L/min) 2 Oxygen Delivery Method Nasal Cannula Weight: 129 lb 3.054 oz Body Mass Index (BMI) 23.6 Intake & Output: Intake and Output for Last 24 Hours 07/03/21 07/04/21 07/05/21 23:59 23:59 23:59 Intake Total 1261.5 / 1281.5 310.67 / 310.67 Output Total 0 / 0 2500 / 2500 Balance 1261.5 / 1281.5 -2189.33 / -2189.33 Lab / Micro Data Result Diagrams: 07/05/21 03:50 07/05/21 03:50 Labs: Laboratory Results - last 24 hr 07/04/21 20:20: APTT 44.0 H 07/04/21 21:13: POC Glucose 85 07/05/21 03:50: WBC 4.8, RBC 2.96 L, Hgb 8.3 L, Hct 25.8 L, MCV 87.2, MCH 28.0, MCHC 32.2, RDW Std Deviation 56.1 H, RDW Coeff of [place] 17.3 H, Plt Count 248, MPV 9.4, Immature Gran % (Auto) 0.400, Neut % (Auto) 51.1, Lymph % (Auto) 37.1, [place] % (Auto) 9.5, Eos % (Auto) 1.1, Baso % (Auto) 0.8, Absolute Neuts (auto) 2.4, Absolute Lymphs (auto) 1.76, Nucleated RBC % 0 07/05/21 03:50: Sodium 137, Potassium 3.9, Chloride 98, Carbon Dioxide 26.0, BUN 45 H, Creatinine 4.95 H, Estim Creat Clear Calc 8.84, Est GFR (MDRD) Af Amer 11 L, Est GFR (MDRD) Non-Af 9 L, BUN/Creatinine Ratio 9.1 L, Glucose 88, Calcium 8.7, Phosphorus 3.9, Albumin 2.5 L 07/05/21 03:50: PT 15.5 H, INR 1.3, APTT 55.8 H 07/05/21 03:50: Sodium 137, Potassium 3.9, Chloride 98, Carbon Dioxide 25.0, Anion Gap 14, BUN 44 H, Creatinine 4.96 H, Estim Creat Clear Calc 8.82, Est GFR (MDRD) Af Amer 11 L, Est GFR (MDRD) Non-Af 9 L, BUN/Creatinine Ratio 8.9 L, Glucose 86, Calcium 8.4 L 07/05/21 06:45: POC Glucose 74 07/05/21 10:00: APTT 33.5 07/05/21 11:01: POC Glucose 86 07/05/21 15:47: POC Glucose 64 L Micro: Microbiology 07/04/21 12:30 Stool Stool Occult Blood (MELODY) - Final 07/04/21 12:30 Stool C. difficile GDH Antigen & Toxins - Final Toxigenic C. difficile 07/04/21 12:30 Stool C. difficile DNA Amplification - Final Rhythm Strip Rhythm Strip: A-fib Rate: 40 Ectopy: None Cardiology Labs/Tests 07/04/21 20:20: APTT 44.0 H 07/05/21 03:50: WBC 4.8, RBC 2.96 L, Hgb 8.3 L, Hct 25.8 L, MCV 87.2, MCH 28.0, MCHC 32.2, Plt Count 248, MPV 9.4, Immature Gran % (Auto) 0.400, Neut % (Auto) 51.1, Lymph % (Auto) 37.1, [place] % (Auto) 9.5, Eos % (Auto) 1.1, Baso % (Auto) 0.8, Absolute Neuts (auto) 2.4, Nucleated RBC % 0 07/05/21 03:50: Sodium 137, Potassium 3.9, Chloride 98, Carbon Dioxide 26.0, BUN 45 H, Creatinine 4.95 H, Est GFR (MDRD) Af Amer 11 L, Est GFR (MDRD) Non-Af 9 L, BUN/Creatinine Ratio 9.1 L, Glucose 88, Calcium 8.7, Phosphorus 3.9 07/05/21 03:50: PT 15.5 H, INR 1.3, APTT 55.8 H 07/05/21 03:50: Sodium 137, Potassium 3.9, Chloride 98, Carbon Dioxide 25.0, Anion Gap 14, BUN 44 H, Creatinine 4.96 H, Est GFR (MDRD) Af Amer 11 L, Est GFR (MDRD) Non-Af 9 L, BUN/Creatinine Ratio 8.9 L, Glucose 86, Calcium 8.4 L 07/05/21 10:00: APTT 33.5 EKG: As noted above ECHO: As noted above Cardiac Cath: DATE OF SERVICE: 08-18-2013 CARDIAC CATHETERIZATION SUMMARY HISTORY OF PRESENT ILLNESS: The patient is a 57-year-old poorly-controlled diabetic who was admitted for a gangrenous right great toe on August 11, 2013, as well as cellulitis of her right anterior foot. The patient in addition to that had evidence of a non-ST elevation myocardial infarction. The patient was medically stabilized and her right great toe was amputated urgently as she was developing bacteremia and hypotension. Immediately following that the patient did much better and this was medically managed over the weekend. However, this morning the patient developed acute shortness of breath and dyspnea, most likely secondary to pulmonary edema. She responded well to Lasix and was transferred to the ICU. In tandem with this, her EKG demonstrated anterolateral ST-segment depression, as well as a troponin, which went from 4.06 up to 6.70. The patient was medically stabilized and brought to the cytogenetics laboratory manager. The original plan was for her to undergo elective catheterization anyhow this morning. Due to poor pulses on the right side and her healing gangrenous toe, we elected to proceed with angiogram via the left groin. DESCRIPTION OF PROCEDURE: The risks and benefits of the procedure were thoroughly explained to the patient and informed consent was obtained. The patient was prepped and draped in the usual sterile fashion. Under fluoroscopic guidance, the left femoral artery was anesthetized with 1% lidocaine followed by access with a single anterior stick of the Cook needle followed by the placement of an exchange length J-wire. Next, a 4-[place] JL5 catheter was easily engaged into the left main coronary artery. There was no dampening or ventricularization upon engagement. RESULTS: Left main: The left main is a moderate-sized vessel, which bifurcates into an LAD and a left circumflex artery. There are no significant lesions seen in the left main. LAD: The LAD is a small vessel, given her size, which rapidly tapers down into approximately 70% long narrowing at the bifurcation of a small diagonal branch. The remainder of the LAD has nonobstructive disease in the range of 20-30%. There is a moderate grade stenosis in the midportion of the LAD making MAY bypass somewhat problematic. The remainder of the LAD wraps on the apex of the heart and has nonobstructive disease in the range of 20%. The vessel itself was quite small. Diagonal branches: Diagonal #1 is quite small and is not amenable to PCI. Left circumflex artery: Left circumflex artery is nondominant. It bifurcates into an obtuse marginal branch. The obtuse marginal #1 is bifurcates into a superior and inferior branch. The obtuse marginal #1 has a high-grade 85-90% stenosis in its proximal portion which most likely the culprit artery for the patient's ST-segment changes, as well as her troponin release. This was also a long in nature of approximately 32 mm in length. The left circumflex artery essentially runs in the AV groove and terminates into a small posterolateral branch. The JL5 catheter was exchanged over a wire for a 4-[place] 3DRC catheter. This was easily engaged into the right coronary artery. There was no dampening or ventricularization upon engagement. RCA: RCA is a large dominant vessel. There is a long diffuse 70% narrowing in its proximal, mid and distal portion. The remainder of the right coronary artery prior to the bifurcation of the PDA is a moderate- to large-sized vessel. The distal portion is free of significant disease. PDA: The PDA basically consists of 2 branches, one in the midportion of the right coronary artery and one in the terminal portion of the right coronary artery. They effectively feed the inferior portion of the heart and give way to the inferior septal perforators. There is diffuse narrowing of approximately 30% in the PDA #1. The caliber of this vessel is somewhat small and it is most likely not amenable to PCI. Posterolateral branches: Posterolateral branches terminate into the inferolater al portion of the heart. They have minimal nonobstructive disease. No lesions, which require intervention at this time. Next, the 3DRC catheter was exchanged over a wire for a 4-[place] angled pigtail catheter. This was easily engaged into the left ventricular chamber. The LV angiogram performed in 30-degree MARIN position demonstrated mild anterior hypokinesis with excellent inferior contractility. The overall ejection fraction of approximately 50%. No mitral regurgitation was seen and no significant gradient was seen on pullback. The LVEDP was approximately 23-26 mmHg. CONCLUSIONS: 1. Significant three-vessel coronary artery disease. The culprit lesion is most likely the 85-90% stenosis of the proximal portion of the obtuse marginal branch. In addition, the patient has significant disease in her proximal LAD and throughout her entire right coronary artery. 2. Mild LV dysfunction with an LVEF approximately 50%. 3. Moderately elevated LVEDP. 4. Severe systemic hypertension requiring IV nitroglycerin drip during the cytogenetics laboratory manager procedure. RECOMMENDATIONS: After discussing the patient's condition with Dr. Smith, her hospital plan administrator, it was reported that the patient will require additional foot amputation in the near future. Dr. Smith did not feel that this would be inhibited by dual antiplatelet therapy. Her white count has increased to 18.7. There is significant concern of possible sternal wound infection or mediastinitis, should the patient undergo bypass surgery. Therefore, it is recommended that the patient be stabilized from a cardiovascular standpoint with percutaneous intervention. It appears that this is amenable to stent procedures of the obtuse marginal and proximal LAD. The patient will be loaded with 600 mg of Plavix and I have spoken with Dr. Carlos Enrique Mcknight at [facility]. She will be transferred from our ICU to their ICU on an IV nitroglycerin drip. She will be loaded with 600 mg of Plavix and continue her aspirin. In addition, I will initiate Coreg 3.125 mg p.o. daily and 40 mg of Lasix daily. I recommended that she undergo PCI to Dr. Mcknight of the obtuse marginal and the proximal LAD to stabilize her left system. If the patient stabilizes, she may then undergo her metatarsal surgery prior to intervention of her right coronary artery. The right coronary artery, although a long and tapered narrowing is present, would most likely be okay for general anesthesia. If the patient's condition deteriorates while at [facility], I would recommend that she undergo urgent tarsal surgery to remove the infection. At this point, her right great toe has not been sutured up, and has been left open for healing purposes. I discussed these options with the patient and she is agreeable to proceed. Pending her foot surgery, we will then bring her back either to the cytogenetics laboratory manager or to the stress lab for a stress test to determine if her right coronary artery requires intervention. If she develops inferior ischemia or has a positive FFR, we will then proceed with angioplasty and stenting. The patient tolerated the procedure well. Cardiac catheterization: 04-24-2019: [place], [place] Left main: Ostial lesion: 90% stenosis LAD: Ostial lesion: 60% stenosis proximal stent: Patent LCx: Ostial lesion: 80% stenosis RCA: Proximal: 95% stenosis Right superficial femoral: 50% stenosis Right popliteal: 70% stenosis Right posterior tibial: 100% stenosis Right peroneal: Proximal 85% stenosis MAY to the LAD: Patent SVG to the right PDA: Patent SVG Y graft to the first posterior lateral branch originating from the graft to the right PDA: Patent PCI: 04-24-2019: [place], [place] Left main: PTCA/stent with a 3.5 x 15 mm resolute Osvaldo Rx stent LCx PTCA/stent CT Surgery: Date unknown at this time: Location unknown at this time MAY to the LAD SVG to the right PDA SVG Y graft to the first posterolateral branch originating from the graft to the right PDA Radiography Diagnostic Testing: Radiology Impression Chest X-Ray 07/05/21 08:40 IMPRESSION: Since prior study, there has been improvement of the aeration of the left lung with residual infiltrates. Mild degree of persistent CHF. Further follow-up recommended. Electronically Signed: Yovany Rosa MD at 12:42 EDT ,
--- NOTE | 2021-07-05 17:49 | ECHOD_ITS ---
Reason For Study: S/P OR Procedure This was a 2D Doppler, Color Flow transthoracic echocardiogram. The exam was of adequate technical quality. Exam performed portable in patient room. Left Ventricle Normal LV size. Mild segmental systolic dysfunction (see wall motion). The estimated ejection fraction is 45 %. Diastolic function is indeterminate. Basal inferoseptal: Hypokinetic. Mid- Anterior : Hypokinetic. Mid-inferoseptal : Hypokinetic. Mid-anteroseptal : Hypokinetic. Septal [place] : Hypokinetic. Right Ventricle Normal RV size. Normal systolic function. Atria The left atrium is mildly enlarged. Normal right atrium. No doppler evidence for ASD. Mitral Valve There is mild mitral annular calcification. Extension of the mitral annular calcification onto the base of the posterior mitral valve leaflet. Mild diffuse mitral valve thickening. Mild focal mitral valve calcification of the anterior leaflet. The mitral valve chordae are thickened and/or calcified. Mild (1+) mitral valve insufficiency. Tricuspid Valve Normal tricuspid valve. Trivial tricuspid valve insufficiency. Unable to estimate RV systolic pressure due to insufficient tricuspid regurgitant envelope. Aortic Valve Trisinus/trileaflet aortic valve. Mild diffuse aortic valve thickening. Mild diffuse aortic valve calcification. Aortic valve sclerosis/mild aortic valve stenosis. Trivial aortic valve insufficiency. Pulmonic Valve The pulmonic valve is not well visualized. Trivial pulmonic valve insufficiency. Great Vessels Normal sized aortic root. Calcified aortic root. Pericardium/Pleural No pericardial effusion. MMode/2D Measurements & Calculations LVIDd: 4.8 cm IVSd: 1.0 cm LVOT diam: 2.1 cm LVIDs: 4.0 cm LVPWd: 1.5 cm LVOT area: 3.6 cm2 RVDd: 3.6 cm FS: 15.1 % Ao root diam: 3.0 cm LAV(MOD-bp): 53.1 ml LVAd ap4: 28.7 cm2 LAV(MOD-bp) Indexed: 33.5 ml/m2 LVLd ap4: 8.4 cm LAV(MOD-sp2): 44.9 ml EDV(MOD-sp4): 84.9 ml LAV(MOD-sp4): 60.5 ml EDV(sp4-el): 82.8 ml LVAs ap4: 20.3 cm2 LVLs ap4: 7.3 cm ESV(MOD-sp4): 48.9 ml ESV(sp4-el): 48.0 ml EF(MOD-sp4): 42.4 % EF(sp4-el): 42.1 % LVAd ap2: 30.1 cm2 SV(MOD-sp4): 36.0 ml SV(MOD-sp2): 27.6 ml LVLd ap2: 8.9 cm EDV(MOD-sp2): 87.4 ml EDV(sp2-el): 86.4 ml LVAs ap2: 24.0 cm2 LVLs ap2: 8.4 cm ESV(MOD-sp2): 59.8 ml ESV(sp2-el): 58.0 ml EF(MOD-sp2): 31.6 % SV(sp4-el): 34.8 ml LA dimension(2D): 4.2 cm LA A4 area: 20.2 cm2 RA A4 area: 15.8 cm2 Doppler Measurements & Calculations MV E max pan: 77.7 cm/sec Lat Peak E' Pan: 6.2 cm/sec Med Peak E' Pan: 3.7 cm/sec MV A max pan: 94.6 cm/sec E/E' lat: 12.5 E/E' med: 21.1 MV E/A: 0.82 Ao V2 max: 207.9 cm/sec LV V1 max: 116.9 cm/sec SV(LVOT): 83.9 ml Ao max P.3 mmHg LV V1 max P.5 mmHg Ao V2 mean: 137.6 cm/sec LV V1 mean P.9 mmHg Ao mean P.6 mmHg LV V1 mean: 79.4 cm/sec Ao V2 VTI: 38.9 cm LV V1 VTI: 23.6 cm AMA(I,D): 2.2 cm2 AMA(V,D): 2.0 cm2 PA V2 max: 117.3 cm/sec ECHO/Echo Complete Interpretation Summary Mild segmental systolic dysfunction (see wall motion). The estimated ejection fraction is 45 %. The left atrium is mildly enlarged. There is mild mitral annular calcification. Extension of the mitral annular calcification onto the base of the posterior mi tral valve leaflet. Mild diffuse mitral valve thickening. Mild focal mitral valve calcification of the anterior leaflet. The mitral valve chordae are thickened and/or calcified. Mild (1+) mitral valve insufficiency. Trivial tricuspid valve insufficiency. Aortic valve sclerosis/mild aortic valve stenosis. Trivial aortic valve insufficiency. Trivial pulmonic valve insufficiency. Calcified aortic root. Unable to estimate RV systolic pressure due to insufficient tricuspid regurgita nt envelope. Diastolic function is indeterminate. Ordering Physician: Gwyn Gama Referring Physician: Gwyn Monreal Performed By: Skyla Crabtree RDCS
--- NOTE | 2021-07-05 18:30 | OP.EGD_ITS ---
Patient Name: Radha Camara Procedure Date: 07/05/2021 5:53 PM Date of : 1955 Age: 65 Procedure: Upper GI endoscopy Indications: Epigastric abdominal pain, Failure to respond to medical treatment Providers: Donnie Roldan DO Medicines: Monitored Anesthesia Care Patient Profile: This is a 65 year old female. Refer to note in patient chart for documentation of history and physical. Patient has symptoms of acute epigastric abdominal pain and chronic nausea. Complications: No immediate complications. Procedure: Pre-Anesthesia Assessment: - Prior to the procedure, a History and Physical was performed, and patient medications and allergies were reviewed. The patient is competent. The risks and benefits of the procedure and the sedation options and risks were discussed with the patient. All questions were answered and informed consent was obtained. Patient identification and proposed procedure were verified by the physician in the pre-procedure area. Mental Status Examination: alert and oriented. Airway Examination: normal oropharyngeal airway and neck mobility. Respiratory Examination: clear to auscultation. CV Examination: normal. Prophylactic Antibiotics: The patient does not require prophylactic antibiotics. Prior Anticoagulants: The patient has taken no previous anticoagulant or antiplatelet agents. ASA Grade Assessment: II - A patient with mild systemic disease. After reviewing the risks and benefits, the patient was deemed in satisfactory condition to undergo the procedure. The anesthesia plan was to use moderate sedation / analgesia (conscious sedation). Immediately prior to administration of medications, the patient was re-assessed for adequacy to receive sedatives. The heart rate, respiratory rate, oxygen saturations, blood pressure, adequacy of pulmonary ventilation, and response to care were monitored throughout the procedure. The physical status of the patient was re-assessed after the procedure. After obtaining informed consent, the endoscope was passed under direct vision. Throughout the procedure, the patient's blood pressure, pulse, and oxygen saturations were monitored continuously. The Endoscope was introduced through the mouth, and advanced to the second part of duodenum. The upper GI endoscopy was accomplished without difficulty. The patient tolerated the procedure well. Scope In: 6:10:49 PM Scope Out: 6:17:55 PM Total Procedure Duration Time 0 hours 7 minutes 6 seconds Findings: Mucosal changes including ringed esophagus, longitudinal furrows and small-caliber esophagus were found in the entire esophagus. Esophageal findings were graded using the Eosinophilic Esophagitis Endoscopic Reference Score (EoE-EREFS) as: Edema Grade 1 Present (decreased clarity or absence of vascular markings), Rings Grade 2 Moderate (distinct rings that do not occlude passage of diagnostic 8-10 mm endoscope), Exudates Grade 0 None (no white lesions seen), Furrows Grade 0 None (no vertical lines seen) and Stricture none (no stricture found). LA Grade A (one or more mucosal breaks less than 5 mm, not extending between tops of 2 mucosal folds) esophagitis with no bleeding was found 38 to 40 cm from the incisors. Biopsies were taken with a cold forceps for histology. Verification of patient identification for the specimen was done. Estimated blood loss was minimal. Patchy moderate inflammation characterized by congestion (edema) and mucus was found in the entire examined stomach. Biopsies were taken with a cold forceps for histology. Verification of patient identification for the specimen was done. Estimated blood loss was minimal. A few diffuse erosions without bleeding were found in the duodenal bulb. Biopsies were taken with a cold forceps for histology. Verification of patient identification for the specimen was done. Estimated blood loss was minimal. Impression: - Esophageal mucosal changes consistent with eosinophilic esophagitis. - LA Grade A reflux esophagitis. Biopsied. - Gastritis. Biopsied. - Duodenal erosions without bleeding. Biopsied. -Her upper GI tract resembles that of eosinophilic gastroenteritis and eosinophilic esophagitis. Biopsies were taken. She may benefit from steroid therapy such as budesonide. I would give her a scopolamine patch for the nausea and continue Prevacid 15 mg sublingual p.o. twice daily for her ongoing nausea and gastritis that was seen in the stomach and duodenum. She should have an autoimmune work-up for autoimmune disease affecting the GI tract. This can be done as an outpatient if her nausea is better and she is able to be DC'd to home. Recommendation: - [facility]. - Resume previous diet. - Continue present medications. - Await pathology results. Procedure Code(s): --- Professional --- 16649, Esophagogastroduodenoscopy, flexible, transoral; with biopsy, single or multiple CPT copyright 2017 [employer]. All rights reserved. The codes documented in this report are preliminary and upon oyster planter review may be revised to meet current compliance requirements. Donnie Roldan DO 07/05/2021 6:29:55 PM This report has been signed electronically. Number of Addenda: 1 Note Initiated On: 07/05/2021 5:53 PM Addendum Number: 1 Addendum Date: 11/24/2021 6:23:23 AM MAC was used as sedation for this procedure. Donnie Roldan DO 11/24/2021 6:23:27 AM This report has been signed electronically.
--- NOTE | 2021-07-05 18:31 | OP.CCLET_ITS ---
11/24/2021 Gwyn Monreal MD [address] [place] [address] Re : Upper GI endoscopy procedure for Radha Camara Dear Dr. Monreal This procedure was performed on Monday, July 05, 2021. My impressions and recommendations are as follows: Impressions : - Esophageal mucosal changes consistent with eosinophilic esophagitis. - LA Grade A reflux esophagitis. Biopsied. - Gastritis. Biopsied. - Duodenal erosions without bleeding. Biopsied. -Her upper GI tract resembles that of eosinophilic gastroenteritis and eosinophilic esophagitis. Biopsies were taken. She may benefit from steroid therapy such as budesonide. I would give her a scopolamine patch for the nausea and continue Prevacid 15 mg sublingual p.o. twice daily for her ongoing nausea and gastritis that was seen in the stomach and duodenum. She should have an autoimmune work-up for autoimmune disease affecting the GI tract. This can be done as an outpatient if her nausea is better and she is able to be DC'd to home. Recommendations : - [facility]. - Resume previous diet. - Continue present medications. - Await pathology results. My findings are described in the full procedure note, which is enclosed. If I can be of further assistance, please feel free to contact me at . Sincerely, Donnie Roldan, 07/05/2021 6:29:55 PM This report has been signed electronically.
[2021-07-05] MEDS: Cilostazol 50 MG Tablet PO (20:41)
[2021-07-05] MEDS: Atorvastatin Calcium 80 MG Tablet PO (20:41)
[2021-07-05 21:01] LABS: Bedside Glucose 80 mg/dL (74-106)
[2021-07-06] VITALS (8 sets, daily range): BP systolic 112–178; BP diastolic 43–86; PULSE 74–86; RESP 14–16; TEMP 36.7–37; O2SAT 92–98
--- NOTE | 2021-07-06 05:55 | EKG12_ITS ---
Test Reason : AM EKG Blood Pressure : / mmHG Vent. Rate : 081 BPM Atrial Rate : 081 BPM P-R Int : 200 ms QRS Dur : 092 ms QT Int : 398 ms P-R-T Axes : 141 -24 155 degrees QTc Int : 462 ms Unusual P axis, possible ectopic atrial rhythm Septal infarct ,age undetermined Lateral infarct , age undetermined , cannot be excluded Abnormal ECG Confirmed by KATHY MOORE, TED ([id number]), news video editor ANN ANGULO ([id number]) on 07/06/2021 1:04:12 PM Referred By: JOEY Confirmed By:TED CHAVEZ MD
[2021-07-06 06:36] LABS: Bedside Glucose 77 mg/dL (74-106)
--- NOTE | 2021-07-06 07:33 | PN.CARD_ITS ---
Subjective Subjective The patient is awake and alert. She denies any acute cardiovascular symptoms at this time. She underwent EGD yesterday without any acute adverse cardiovascular events. Objective Data Vital Signs: Vital Signs Temp Pulse Resp BP Pulse Ox 98.0 F 86 16 112/43 L 92 07/06/21 03:55 07/06/21 07:04 07/06/21 03:55 07/06/21 03:55 07/06/21 03:55 Oxygen Flow Rate (L/min) 2 Oxygen Delivery Method Room Air Weight: 129 lb 3.054 oz Body Mass Index (BMI) 23.6 Intake & Output: Intake and Output for Last 24 Hours 07/04/21 07/05/21 07/06/21 23:59 23:59 23:59 Intake Total 1261.5 / 1281.5 420.67 / 420.67 700 / 700 Output Total 0 / 0 2500 / 2500 Balance 1261.5 / 1281.5 -2079.33 / -2079.33 700 / 700 Lab / Micro Data Result Diagrams: 07/05/21 03:50 07/05/21 03:50 Labs: Laboratory Results - last 24 hr 07/05/21 10:00: APTT 33.5 07/05/21 11:01: POC Glucose 86 07/05/21 15:47: POC Glucose 64 L 07/05/21 20:37: POC Glucose 80 07/06/21 06:30: POC Glucose 77 Micro: Microbiology 07/04/21 01:49 Blood Culture (Wb) - Anticubital Right Blood Culture - Prel iminary No growth in 48 hours. 07/04/21 02:34 Blood Culture (Wb) - Left Wrist Blood Culture - Preliminary No growth in 48 hours. Rhythm Strip Rhythm Strip: A-fib Rate: 40 Ectopy: None Cardiology Labs/Tests 07/05/21 10:00: APTT 33.5 Rhythm: Sinus rhythm EKG: Ectopic atrial rhythm; septal NH of indeterminate age cannot be excluded; lateral NH of indeterminate age cannot be excluded Radiography Diagnostic Testing: Radiology Impression Chest X-Ray 07/05/21 08:40 IMPRESSION: Since prior study, there has been improvement of the aeration of the left lung with residual infiltrates. Mild degree of persistent CHF. Further follow-up recommended. Electronically Signed: Yovany Rosa MD at 12:42 EDT , Physical Exam Const alert, oriented x3 and no apparent distress Orientation / Consciousness: awake HEENT normocephalic, head/scalp atraumatic and hearing grossly normal bilaterally Eyes PERRL, EOMs intact bilaterally and conjunctivae normal Neck full ROM, supple and no JVD Chest Chest: midline sternotomy incision Resp Auscultation: diminished lung sounds bilateral lower Cardio regular rate, regular rhythm, S1 normal heart sound and S2 normal heart sound Heart Sounds: murmur systolic II/ soft mid left sternal border, LVOT and sternal notch GI normal to inspection, nondistended, normoactive bowel sounds Extremity Extremity Narrative: Left foot: Noted to be in a surgical bandage Neuro oriented x3 Psych mental status grossly normal Assessment & Plan Assessment/Plan (1) Acute non-ST elevation myocardial infarction (NSTEMI): PLAN: The patient has findings compatible with an acute non-ST segment elevation NH. Based upon review of her case this appears to be compatible with a type II event brought out by her hypoxemia superimposed upon her anemia superimposed upon her underlying cardiovascular condition. At the present time she is being monitored. A repeat transthoracic echocardiogram is pending. She is continuing medical therapy. An attempt will be made to reinitiate her beta-alden therapy. She does not appear at this time to be an ideal candidate for additional noninvasive or invasive cardiovascular evaluation. Of note she states she would not want to go through a diagnostic cardiac catheterization. (2) CAD (coronary artery disease): PLAN: She has a history of CAD. She has been evaluated locally and at [facility] in [place], [place]. Her most recent cardiac catheterization report available for review is noted in her cardiovascular consultation note. At the present time she will continue medical management. (3) Stented coronary artery: PLAN: She does have reports of PCI to the left main coronary artery and the LCx. At the present time she we will continue medical therapy. If she were ever thought to be a candidate for a repeat invasive evaluation such as a diagnostic cardiac catheterization and she agreed to such it may not be unreasonable, based upon her extensive CAD and the sites of her previous PCI procedures including her left main coronary artery that she be evaluated at a tertiary care center where she could receive high risk intervention if need be. (4) S/P CABG x 3: PLAN: Based upon her most recent cardiac catheterization report available for review it appears that her grafts were patent at the time. She will continue medical management. (5) Atrial fibrillation: PLAN: She appears to have returned to a sinus rhythm. An attempt will be made to reinitiate her beta-alden therapy. (6) Hyperlipidemia: PLAN: She should continue risk factor evaluation care as tolerated. (7) Hypertension: PLAN: Her blood pressure can be followed with her medicines adjusted based upon her vital signs and her other objective findings such as her renal function. (8) Diabetes mellitus, type II: PLAN: She will continue evaluation care per internal medicine. (9) Infection of left foot: PLAN: She will continue evaluation by internal medicine and other surgical specialties as deemed appropriate. (10) Symptomatic anemia: PLAN: Her hemoglobin does need to be monitored. If her hemoglobin continues to decline not only will she need further evaluation such as her ongoing gastroenterology evaluation but she may also need PRBC transfusions. (11) ESRD on dialysis: PLAN: She has reinitiated dialysis therapy. Her volume status as well as her electrolytes appear to have come under better control. Addt'l Comments She did undergo EGD yesterday. The report was reviewed. It appears she is going to continue medical management. Overall, at the present time, from a cardiac standpoint, she will continue to be monitored, she will continue conservative medical therapy. A transthoracic echocardiogram is pending to reassess her left ventricular wall motion and systolic function. However, she does not appear to be an ideal candidate for any further invasive evaluation/care and as noted above she states she does not want to go through such an evaluation. This note was generated using a voice recognition system and there may be incorrect words, spelling or punctuation that were not noted when reviewing the office note prior to saving. Procedure Criteria Type of Procedure Procedure Type: Elective Elective Risks - COVID COVID Risk Discussion: The surgeon/proceduralist and patient have discussed in detail the risk of exposure to and/or potential harm posed by the COVID-19 virus with having a surgery/procedure at this time versus the risk of delaying the surgery/procedure. It is not possible to know either the risk of delaying the surgery or procedure or chance of getting an infection with perfect accuracy, but a joint decision was made between the patient and the surgeon/proceduralist to proceed at this time with the scheduled surgery/procedure as indicated on the consent form.
--- NOTE | 2021-07-06 09:02 | PN.RENAL_ITS ---
Subjective Subjective Following for ESRD. The patient is status post EGD yesterday. She has gastritis, duodenal erosion and esophagitis. There is no active bleeding. The patient denies chest pain or shortness of breath at rest. She still has occasional nausea. Objective Data Objective Data Vital Signs: Vital Signs Temp Pulse Resp BP Pulse Ox 98.0 F 86 16 112/43 L 92 07/06/21 03:55 07/06/21 07:04 07/06/21 03:55 07/06/21 03:55 07/06/21 03:55 Oxygen Flow Rate (L/min) 2 Oxygen Delivery Method Room Air Weight: 58.6 kg Body Mass Index (BMI) 23.6 Intake & Output: Intake and Output for Last 24 Hours 07/04/21 07/05/21 07/06/21 23:59 23:59 23:59 Intake Total 1261.5 / 1281.5 420.67 / 420.67 700 / 700 Output Total 0 / 0 2500 / 2500 Balance 1261.5 / 1281.5 -2079.33 / -2079.33 700 / 700 Lab / Micro Data Result Diagrams: 07/05/21 03:50 07/05/21 03:50 Labs: Laboratory Results - last 24 hr 07/05/21 10:00: APTT 33.5 07/05/21 11:01: POC Glucose 86 07/05/21 15:47: POC Glucose 64 L 07/05/21 20:37: POC Glucose 80 07/06/21 06:30: POC Glucose 77 Micro: Microbiology 07/04/21 01:49 Blood Culture (Wb) - Anticubital Right Blood Culture - Preliminary No growth in 48 hours. 07/04/21 02:34 Blood Culture (Wb) - Left Wrist Blood Culture - Preliminary No growth in 48 hours. 07/04/21 12:30 Stool Stool Occult Blood (MELODY) - Final 07/04/21 12:30 Stool C. difficile GDH Antigen & Toxins - Final Toxigenic C. difficile 07/04/21 12:30 Stool C. difficile DNA Amplification - Final 07/04/21 00:55 Interface Orders SARS-CoV-2 Antigen (Rapid) - Final Radiography Diagnostic Testing: Radiology Impression Chest X-Ray 07/05/21 08:40 IMPRESSION: Since prior study, there has been improvement of the aeration of the left lung with residual infiltrates. Mild degree of persistent CHF. Further follow-up recommended. Electronically Signed: Yovany Rosa MD at 12:42 EDT , Echocardiogram 07/05/21 17:49 Interpretation Summary Mild segmental systolic dysfunction (see wall motion). The estimated ejection fraction is 45 %. The left atrium is mildly enlarged. There is mild mitral annular calcification. Extension of the mitral annular calcification onto the base of the posterior mitral valve leaflet. Mild diffuse mitral valve thickening. Mild focal mitral valve calcification of the anterior leaflet. The mitral valve chordae are thickened and/or calcified. Mild (1+) mitral valve insufficiency. Trivial tricuspid valve insufficiency. Aortic valve sclerosis/mild aortic valve stenosis. Trivial aortic valve insufficiency. Trivial pulmonic valve insufficiency. Calcified aortic root. Unable to estimate RV systolic pressure due to insufficient tricuspid regurgitant envelope. Diastolic function is indeterminate. Ordering Physician: Gwyn Gama Referring Physician: Gwyn Monreal Performed By: Skyla Crabtree [facility] Rhythm Strip Rhythm Strip: A-fib Rate: 40 Ectopy: None Physical Exam Narrative Const: A&Ox3 HEENT: PERRLA, oral mucosa dry Cardio: S1S2 RRR Abdomen: soft, nontender, +BS x4quad Resp: clear anterior and posteriorly Extrem: no edema. AVF + accessed for dialysis Assessment & Plan Assessment/Plan (1) ESRD on dialysis: PLAN: - Outpatient dialysis schedule is Saturday, Saturday, Saturday, Saturday (she is on [facility] machine at [facility]). She is on MWF schedule while in the [facility]. -The patient was dialyzed yesterday without any issues. -There is no need for dialysis today. -Reemphasized the need to adhere to prescribed dialysis treatment. Patient states she understands the importance of needing dialysis and wants to continue dialysis scheduled at [facility]. (2) Hyperkalemia, diminished renal excretion: PLAN: - Hyperkalemia has resolved with dialysis. -As above, encouraged the patient to adhere to prescribed hemodialysis to avoid recurrence of hyperkalemia. (3) Elevated troponin: PLAN: - The patient is followed by cardiology. -She is diagnosed with type II NSTEMI. -The patient has chosen medical treatment rather than invasive procedures. (4) Acute respiratory failure with hypoxia: PLAN: - Respiratory status has improved with hemodialysis and ultrafiltration. -Again, I reemphasized the need to adhere to dialysis treatment to limit volume reaccumulation. (5) Anemia: PLAN: -Anemia of CKD. ANDRA with HD yesterday. -She is status post EGD which showed gastritis, duodenal erosion, and esopha gitis. However, there is no active bleeding. -We will continue to trend hemoglobin at dialysis unit as outpatient. -Encourage patient to comply with dialysis treatment since she is missing ANDRA when she misses dialysis.
--- NOTE | 2021-07-06 09:16 | CASEMGMT ---
JUSTEN called Dorothea at [facility] and let her know patient will be returning today. Sia Noe DIGESTER JUAN LUIS
[2021-07-06 09:40] LABS: Erythrocyte Sedimentation Rate 78 mm/hr (0-30)
[2021-07-06] MEDS: Juven (unflavored) Packet 1 PACKET PO (09:59)
[2021-07-06] MEDS: Budesonide 3 MG CAPSULE.EC 6 MG PO (10:00)
[2021-07-06] MEDS: fluvoxaMINE Maleate 50 MG Tablet PO (10:00)
[2021-07-06] MEDS: Pentoxifylline 400 MG Tablet PO (10:00)
[2021-07-06] MEDS: Cilostazol 50 MG Tablet PO (10:00)
[2021-07-06] MEDS: levETIRAcetam 500 MG Tablet PO (10:00)
[2021-07-06] MEDS: amLODIPine 10 MG Tablet PO (10:00)
[2021-07-06] MEDS: Aspirin E.C. 81 MG Tablet PO (10:00)
[2021-07-06] MEDS: Metoprolol Tartrate 25 MG Tablet 12.5 MG PO ×2 (10:01→12:26)
--- NOTE | 2021-07-06 10:40 | PCM.DC ---
Discharge Instructions Follow Up Care Test Results: Test results from this visit will be discussed in further detail at your follow-up appointment, if applicable. Discharge Plan Admission Admit Date/Time: 07/04/21 02:16 Attending Provider: Lisa Ramirez Primary Care Provider: Gwyn Monreal Consulting Providers: Nestor Coronel ; Brynn Verdugo ; Gwyn Gama Discharge Orders/Prescriptions Prescriptions: No Action B complex with C 20-folic acid [Renal Caps] 1 mg capsule 1 cap PO MOWEFR RF: 0 clopidogrel [Plavix] 75 mg tablet 75 mg PO DAILY RF: 0 aspirin [Adult Low Dose Aspirin] 81 mg tablet,delayed release (DR/EC) 81 mg PO DAILY RF: 0 metoprolol tartrate 25 mg tablet 37.5 mg PO BID RF: 0 amlodipine 10 mg tablet 10 mg PO DAILY RF: 0 furosemide 40 mg tablet 40 mg PO Q OTHER DAY RF: 0 atorvastatin 40 mg tablet 80 mg PO QHS RF: 0 cilostazol 50 mg Tablet 50 mg PO BID RF: 0 levetiracetam [Keppra] 500 mg Tablet 500 mg PO DAILY RF: 0 pentoxifylline 400 mg Tablet Extended Release 400 mg PO DAILY RF: 0 lorazepam [Ativan] 0.5 mg Tablet 0.5 mg PO Q6H PRN PRN (Reason: Anxiety) RF: 0 levetiracetam [Keppra] 250 mg Tablet 250 mg PO MOWEFR RF: 0 pantoprazole 40 mg Tablet,Delayed Release (Dr/Ec) 40 mg PO DAILY RF: 0 fluvoxamine 50 mg Tablet 50 mg PO DAILY RF: 0 Referrals / Follow Up: Gwyn Monreal MD [Primary Care Provider] - Disposition Discharge Orders: Discharge Patient (Routine); Ordered 07/06/21 Ordered By: Dr. Lisa Ramirez
--- NOTE | 2021-07-06 10:54 | PCM.TXEXTCAR ---
Diet 07/05/21 18:47 Diet: Renal - General Dietary Modifications:: Consistent Carbohydrate Type of Dietary Supplement:: Nepro Is pt able to select menu?: No Fluid restriction:: 1250 mL Diet Comments: 120 ml Nepro TID w/ meals Routine Orders/Code Status Suppository Type: Dulcolax 10mg Keep PO Greater than or Equal to (%): 94 Routine Lab Work: CBC (within 3 days) and BMP (within 3 days) Wound(s) Left Foot: Wound Type: Neuropathic/Diabetic Foot Ulcer Right Toes: Wound Type: Amputation top of left foot: Wound Type: Abrasion Dressing Change: Dry Sterile Dressing left plantar foot: Wound Type: Neuropathic/Diabetic Foot Ulcer Dressing Change: AntiMicrobial (Aquacel AG, etc) left medial foot: Wound Type: Neuropathic/Diabetic Foot Ulcer Dressing Change: AntiMicrobial (Aquacel AG, etc) left kruse: Wound Type: Abrasion Dressing Change: Dry Sterile Dressing Therapies Weight Bearing: Weight bearing as tolerated Physical Therapy: Eval and Treat Occupational Therapy: Eval and Treat Problem/Diagnosis (1) ESRD on dialysis: Status: Acute (2) Hyperkalemia, diminished renal excretion: Status: Acute (3) Elevated troponin: Status: Acute (4) Acute respiratory failure with hypoxia: Status: Acute (5) Anemia: Status: Acute Allergies/Procedures Done in Hospital Allergies hydrocodone Allergy (Unknown, Verified 12/15/19 13:54) unknown iodine Allergy (Unknown, Verified 12/15/19 13:54) Unknown morphine Allergy (Unknown, Verified 12/15/19 13:54) unknown oxycodone Allergy (Unknown, Verified 12/15/19 13:54) unknown latex Allergy (Verified 12/15/19 13:54) Unknown Penicillins Allergy (Verified 12/15/19 13:54) Unknown shellfish derived Allergy (Verified 12/15/19 13:54) Unknown Procedures: EGD (07/05/21) Type of Care/Length of Stay Estimated LOS: Convalescent Care Less Than 30 days Type of Care Needed: Skilled Rehab Potential: Good Prognosis: Good Additional Orders/Day of Discharge Additional Orders: Wound RN consult for left plantar foot ulcer Day of Discharge: 07/06/21 Dietary and Speech Recommendations Dietitian Recommendations/Changes: Will adjust diet to General Renal/Consistent-Carbohydrate with 1250 ml FR/day per physician order. Will d/c glucerna shake with medpass. Will add 120 ml Nepro shake TID w/ meals. Will add Elfego BID for wound healing. Trend weights closely especially if PO remains poor and inadequate at meals. Discharge Plan Admission Admit Date/Time: 07/04/21 02:16 Primary Reason for Your Visit: Missed dialysis, acute resp failure, hyperkalemia Attending Provider: Lisa Ramirez Primary Care Provider: Gwyn Monreal Consulting Providers: Nestor Coronel ; Brynn Verdugo ; Gwyn Gama Discharge Orders/Prescriptions Prescriptions: New menthol-zinc oxide [Calmoseptine] 0.44-20.6 % Ointment 1 applic topical TID PRN (Reason: irritation) Qty: 0 RF: 0 Elfego (with collagen) 7-7-1.5 gram Powder In Packet 1 packet PO BIDCM 30 Days Qty: 60 RF: 0 Firvanq 25 mg/mL Recon Soln 125 mg PO Q6 8 Days Qty: 160 RF: 0 budesonide 6 mg capsule, extended release 6 mg PO DAILY 30 Days Qty: 30 RF: 0 scopolamine base 1 mg over 3 days patch 3 day 1 patch transdermal Q3D PRN (Reason: nausea and vomiting) 30 Days Qty: 4 RF: 0 Continued B complex with C 20-folic acid [Renal Caps] 1 mg capsule 1 cap PO MOWEFR RF: 0 clopidogrel [Plavix] 75 mg tablet 75 mg PO DAILY RF: 0 aspirin [Adult Low Dose Aspirin] 81 mg tablet,delayed release (DR/EC) 81 mg PO DAILY RF: 0 metoprolol tartrate 25 mg tablet 37.5 mg PO BID RF: 0 amlodipine 10 mg tablet 10 mg PO DAILY RF: 0 furosemide 40 mg tablet 40 mg PO Q OTHER DAY RF: 0 atorvastatin 40 mg tablet 80 mg PO QHS RF: 0 cilostazol 50 mg Tablet 50 mg PO BID RF: 0 levetiracetam [Keppra] 500 mg Tablet 500 mg PO DAILY RF: 0 pentoxifylline 400 mg Tablet Extended Release 400 mg PO DAILY RF: 0 lorazepam [Ativan] 0.5 mg Tablet 0.5 mg PO Q6H PRN PRN (Reason: Anxiety) RF: 0 levetiracetam [Keppra] 250 mg Tablet 250 mg PO MOWEFR RF: 0 fluvoxamine 50 mg Tablet 50 mg PO DAILY RF: 0 Changed pantoprazole 40 mg Tablet,Delayed Release (Dr/Ec) 40 mg PO BID Qty: 0 RF: 0 Referrals / Follow Up: Gwyn Monreal MD [Primary Care Provider] - Within 1 Week Friend,DO Donnie [STAFF PHYSICIAN] - Within 2 Weeks Disposition Disposition (needs filled in before D/C Order can be placed): [facility]
--- NOTE | 2021-07-06 11:13 | DS.PCM_ITS ---
Providers Date of Admission: 07/04/21 Date of Discharge: 07/06/21 Primary Care Physician: Dr. Gwyn Monreal MD Consultations 07/04/21 03:30 Consult: Nephrology Routine Consulting Provider: Brynn Verdugo Reason for Consult: Hyperkalemia EMERGENT Consult: No Notified: Yes Date Notified: 07/04/21 Time Notified: 02:33 Method of Notification: MD to MD in ED Consult: Onc/Wound/quality control engineer Routine Comment: Reason for Consult:: R plantar wound 07/04/21 15:56 Consult: Gastroenterology Routine Consulting Provider: [facility] Reason for Consult: Epigastric pain, gastritis EMERGENT Consult: No Notified: Yes Date Notified: 07/04/21 Time Notified: 16:51 Method of Notification: Text 07/05/21 11:10 Consult: Cardiology Routine Consulting Provider: Gwyn Gama Reason for Consult: elevated troponins EMERGENT Consult: No MD Notified: Yes Date Notified: 07/05/21 Time Notified: 11:10 Method of Notification: Text Reason For Visit: ACUTE HYPOXEMIC RESPIRATORY FAILURE Diagnosis Discharge Diagnosis (1) ESRD on dialysis: Status: Chronic Code(s): N18.6 - End stage renal disease; Z99.2 - Dependence on renal dialysis (2) Hyperkalemia, diminished renal excretion: Status: Acute Code(s): E87.5 - Hyperkalemia (3) Elevated troponin: Status: Acute Code(s): R77.8 - Other specified abnormalities of plasma proteins (4) Acute respiratory failure with hypoxia: Status: Acute Code(s): J96.01 - Acute respiratory failure with hypoxia (5) Anemia: Status: Acute Code(s): D64.9 - Anemia, unspecified Medications at Discharge Home Medications vitamin B complex and vitamin C no.20-folic acid 1 mg capsule 1 cap PO MOWEFR 02/27/17 amlodipine 10 mg tablet 10 mg PO DAILY tab 12/15/19 aspirin 81 mg tablet,delayed release 81 mg PO DAILY 12/15/19 atorvastatin 40 mg tablet 80 mg PO QHS tab 12/15/19 clopidogrel 75 mg tablet 75 mg PO DAILY 12/15/19 furosemide 40 mg tablet 40 mg PO Q OTHER DAY tab 12/15/19 metoprolol tartrate 25 mg tablet 37.5 mg PO BID tab 12/15/19 cilostazol 50 mg PO BID 07/04/21 fluvoxamine 50 mg PO DAILY 07/04/21 levetiracetam [Keppra] 250 mg PO MOWEFR 07/04/21 levetiracetam [Keppra] 500 mg PO DAILY 07/04/21 lorazepam [Ativan] 0.5 mg PO Q6H PRN PRN 07/04/21 pentoxifylline 400 mg PO DAILY 07/04/21 [id number] [Elfego (with collagen)] 1 packet PO BIDCM 30 Days #60 packet 07/06/21 budesonide 6 mg PO DAILY 30 Days #30 cap 07/06/21 menthol-zinc oxide [Calmoseptine] 1 applic TOPICAL TID PRN #0 g 07/06/21 pantoprazole 40 mg PO BID #0 tab 07/06/21 scopolamine base 1 patch TRANSDERMAL Q3D PRN 30 Days #4 ea 07/06/21 vancomycin [Firvanq] 125 mg PO Q6 8 Days #160 ml 07/06/21 Hospital Course Operations None Procedures None and EGD (07/05/21) Summary of Care Provided Minutes Spent on Discharge: 35 Hospital Course: 65 y/o with PMHx of ESRD on hemodialysis, noncompliant with dialysis, history of CAD status post CABG, type II DM, NGUYEN who presented with progressive shortness of breath. Patient is resident in [facility]. She was reported as having oxygen saturation in the 30s. She has missed dialysis for almost a week. Patient stated that the reason she missed dialysis was called nausea and vomiting. Her admitting potassium was 7. Patient received dialysis on the day of admission. She had significant lethargy on admission. This improved with dialysis. She had elevated troponin. This was felt to be secondary to demand ischemia. Patient was on heparin drip. Cardiology consulted. Recommended 2D echo and medical management. 2D echo shows EF of 45%. Diastolic dysfunction was indeterminate. Discussed with patient at the bedside concerning hospice. Patient appeared to be reluctant to sign up with hospice because she said she wanted to naturally. She was however very interested in signing up with palliative care. Discussed this further with her daughter at the bedside who said that they have been talking about hospice 1 week prior to admission. 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 Patient was also managed on IV PPI twice daily. GI was consulted. Patient underwent EGD on 07/05/2021 - findings were significant for esophageal mucosal c hanges consistent with eosinophilic esophagitis, LA grade a reflux esophagitis that was biopsied. Gastritis that was biopsied. Duodenal erosions without bleeding that were biopsied. Patient was continued on pantoprazole p.o. twice daily, scopolamine for nausea as well as budesonide 6 mg daily. Patient will follow up with GI in 1 to 2 weeks. Physical Exam Narrative Physical exam: General: Alert, Oriented x3, Cooperative, No apparent distress, awake, alert, oriented times HEENT: Atraumatic Oral: Moist Mucosa Neck: Supple Lungs: Diminished to auscultation Cardiovascular: HS I+II, regular, no murmurs Abdomen: Bowel Sounds Present, Soft, Non Tender Extremities: Bilateral trace edema Weight / BMI Weight Weight: 58.6 kg Body Mass Index (BMI) 23.6 ABG / Lab / Microbiology Data Result Diagrams: 07/05/21 03:50 07/05/21 03:50 Laboratory: Laboratory Results - last 24 hr 07/05/21 11:01: POC Glucose 86 07/05/21 15:47: POC Glucose 64 L 07/05/21 20:37: POC Glucose 80 07/06/21 06:30: POC Glucose 77 07/06/21 09:27: ESR 78 H 07/06/21 09:27: C-React Prot Ext Range 55.50 H Microbiology: Microbiology 07/04/21 01:49 Blood Culture (Wb) - Anticubital Right Blood Culture - P reliminary No growth in 48 hours. 07/04/21 02:34 Blood Culture (Wb) - Left Wrist Blood Culture - Preliminary No growth in 48 hours. 07/04/21 12:30 Stool Stool Occult Blood (MELODY) - Final 07/04/21 12:30 Stool C. difficile GDH Antigen & Toxins - Final Toxigenic C. difficile 07/04/21 12:30 Stool C. difficile DNA Amplification - Final 07/04/21 00:55 Interface Orders SARS-CoV-2 Antigen (Rapid) - Final Radiography Diagnostic Testing: Radiology Impression Chest X-Ray 07/05/21 08:40 IMPRESSION: Since prior study, there has been improvement of the aeration of the left lung with residual infiltrates. Mild degree of persistent CHF. Further follow-up recommended. Electronically Signed: Yovany Rosa MD at 12:42 EDT , Echocardiogram 07/05/21 17:49 Interpretation Summary Mild segmental systolic dysfunction (see wall motion). The estimated ejection fraction is 45 %. The left atrium is mildly enlarged. There is mild mitral annular calcification. Extension of the mitral annular calcification onto the base of the posterior mitral valve leaflet. Mild diffuse mitral valve thickening. Mild focal mitral valve calcification of the anterior leaflet. The mitral valve chordae are thickened and/or calcified. Mild (1+) mitral valve insufficiency. Trivial tricuspid valve insufficiency. Aortic valve sclerosis/mild aortic valve stenosis. Trivial aortic valve insufficiency. Trivial pulmonic valve insufficiency. Calcified aortic root. Unable to estimate RV systolic pressure due to insufficient tricuspid regurgitant envelope. Diastolic function is indeterminate. ____ Ordering Physician: Gwyn Gama Referring Physician: Gwyn Monreal Performed By: Skyla Crabtree RDCS D/C Instructions Discharge Diet: 1800 Calorie Control Diet and Renal Diet Meaningful Use Info Meaningful Use Diagnoses (Choose all that apply): None applicable Discharge Plan Admission Admit Date/Time: 07/04/21 02:16 Primary Reason for Your Visit: Missed dialysis, acute resp failure, hyperkalemia Attending Provider: Lisa Ramirez Primary Care Provider: Gwyn Monreal Consulting Providers: Nestor Coronel ; Brynn Verdugo ; Gwyn Gama Discharge Orders/Prescriptions Prescriptions: New menthol-zinc oxide [Calmoseptine] 0.44-20.6 % Ointment 1 applic topical TID PRN (Reason: irritation) Qty: 0 RF: 0 Elfego (with collagen) 7-7-1.5 gram Powder In Packet 1 packet PO BIDCM 30 Days Qty: 60 RF: 0 Firvanq 25 mg/mL Recon Soln 125 mg PO Q6 8 Days Qty: 160 RF: 0 budesonide 6 mg capsule, extended release 6 mg PO DAILY 30 Days Qty: 30 RF: 0 scopolamine base 1 mg over 3 days patch 3 day 1 patch transdermal Q3D PRN (Reason: nausea and vomiting) 30 Days Qty: 4 RF: 0 Continued B complex with C 20-folic acid [Renal Caps] 1 mg capsule 1 cap PO MOWEFR RF: 0 clopidogrel [Plavix] 75 mg tablet 75 mg PO DAILY RF: 0 aspirin [Adult Low Dose Aspirin] 81 mg tablet,delayed release (DR/EC) 81 mg PO DAILY RF: 0 metoprolol tartrate 25 mg tablet 37.5 mg PO BID RF: 0 amlodipine 10 mg tablet 10 mg PO DAILY RF: 0 furosemide 40 mg tablet 40 mg PO Q OTHER DAY RF: 0 atorvastatin 40 mg tablet 80 mg PO QHS RF: 0 cilostazol 50 mg Tablet 50 mg PO BID RF: 0 levetiracetam [Keppra] 500 mg Tablet 500 mg PO DAILY RF: 0 pentoxifylline 400 mg Tablet Extended Release 400 mg PO DAILY RF: 0 lorazepam [Ativan] 0.5 mg Tablet 0.5 mg PO Q6H PRN PRN (Reason: Anxiety) RF: 0 levetiracetam [Keppra] 250 mg Tablet 250 mg PO MOWEFR RF: 0 fluvoxamine 50 mg Tablet 50 mg PO DAILY RF: 0 Changed pantoprazole 40 mg Tablet,Delayed Release (Dr/Ec) 40 mg PO BID Qty: 0 RF: 0 Referrals / Follow Up: Gwyn Monreal MD [Primary Care Provider] - Within 1 Week Donnie Roldan DO [STAFF PHYSICIAN] - Within 2 Weeks Disposition Disposition (needs filled in before D/C Order can be placed): Nursing Home Facility Charges/Coding Visit Charges Inpatient E&M: 42912 Disch Hosp
--- NOTE | 2021-07-06 11:33 | CASEMGMT ---
JUSTEN arranged for patient to get picked up at 1p via cot. JUSTEN faxed orders, negative COVID from 5-10 and pharmacy picking tech time to [facility]. JUSTEN notified RN, patient, patient's daughter, and medical secretary. JUSTEN also left a voice mail for Dorothea at [facility]. Plan: d/c back to [facility] under skilled level of care. [facility] transported patient via cot. Sia MCKNIGHT
[2021-07-06] MEDS: Pantoprazole Sodium 40 MG Tablet PO (12:16)
[2021-07-06] MEDS: Clopidogrel Bisulfate 75 MG Tablet PO (12:25)
[2021-07-06] MEDS: Vancomycin 125 MG/5 ML Susp PO.SYRINGE PO (12:25)
[2021-07-06] MEDS: Scopolamine 1mg/72hr Patch 1 PATCH TD (12:31)
--- NOTE | 2021-07-06 12:32 | PHA.DC.MR ---
Pharmacy Service has performed discharge medication reconciliation for this patient upon transfer to [facility]. Home Medications vitamin B complex and vitamin C no.20-folic acid 1 mg capsule 1 cap PO MOWEFR 02/27/17 amlodipine 10 mg tablet 10 mg PO DAILY tab 12/15/19 aspirin 81 mg tablet,delayed release 81 mg PO DAILY 12/15/19 atorvastatin 40 mg tablet 80 mg PO QHS tab 12/15/19 clopidogrel 75 mg tablet 75 mg PO DAILY 12/15/19 furosemide 40 mg tablet 40 mg PO Q OTHER DAY tab 12/15/19 metoprolol tartrate 25 mg tablet 37.5 mg PO BID tab 12/15/19 cilostazol 50 mg PO BID 07/04/21 fluvoxamine 50 mg PO DAILY 07/04/21 levetiracetam [Keppra] 250 mg PO MOWEFR 07/04/21 levetiracetam [Keppra] 500 mg PO DAILY 07/04/21 lorazepam [Ativan] 0.5 mg PO Q6H PRN PRN 07/04/21 pentoxifylline 400 mg PO DAILY 07/04/21 [id number] [Elfego (with collagen)] 1 packet PO BIDCM 30 Days #60 packet 07/06/21 budesonide 6 mg PO DAILY 30 Days #30 cap 07/06/21 menthol-zinc oxide [Calmoseptine] 1 applic TOPICAL TID PRN #0 g 07/06/21 pantoprazole 40 mg PO BID #0 tab 07/06/21 scopolamine base 1 patch TRANSDERMAL Q3D PRN 30 Days #4 ea 07/06/21 vancomycin [Firvanq] 125 mg PO Q6 8 Days #160 ml 07/06/21 The patient's discharge medication list was reviewed for discrepancies and discrepancies were resolved.
[2021-07-06 12:41] LABS: Bedside Glucose 134 mg/dL (74-106)
--- NOTE | 2021-07-06 13:30 | NURSING ---
report called to [facility] Danitza MOREIRA
[2021-07-07 14:10] LABS: Anti-Centromere B Ab <0.2 AI (0.0-0.9); Anti-Chromatin 0.2 AI (0.0-0.9); Anti-Jo <0.2 AI (0.0-0.9); Anti-Scleroderma-70 AB <0.2 AI (0.0-0.9); RNP Ab <0.2 AI (0.0-0.9); SJOGREN'S Anti-SS-A test < 0.2 AI (0.0-0.9); SJOGREN'S Anti-SS-B test < 0.2 AI (0.0-0.9); Smith Ab <0.2 AI (0.0-0.9)
[2021-07-07 18:58] LABS: Anti-dsDNA Ab 1 IU/mL (0-9)
[2021-07-15 02:07] LABS: Cytoplasmic Ab (C-ANCA) <1:20 titer (Neg:<1:20); Immunoglobulin A 495 mg/dL (87-352); Immunoglobulin E 183 IU/mL (6-495); Immunoglobulin G 1399 mg/dL (586-1602); Immunoglobulin M 152 mg/dL (26-217)
[2021-07-15 13:21] LABS: Perinuclear Ab (P-ANCA) <1:20 titer (Neg:<1:20)
== END 2021-07-06 13:39 | disposition skilled nursing facility (03) | DRG 640 ==
LOC: ED 07-04 02:12 → PCU 07-04 02:25
PROVIDERS: Anesthesiology; Internal Medicine Gastroenterology; Nurse Practitioner Adult Health; Admitting Provider Hospitalist; Emergency Provider Emergency Medicine; PCP Family Medicine; Visit Provider Internal Medicine
PROC: 0DJ08ZZ Inspection of Upper Intestinal Tract, Via Natural or Artificial Opening Endoscopic (ICD-10-PCS; CPT 43235; principal; 2021-07-05 16:25)
DX: E87.70 Fluid overload, unspecified (principal); J96.01 Acute respiratory failure with hypoxia; G93.41 Metabolic encephalopathy; I21.A1 Myocardial infarction type 2; N18.6 End stage renal disease; A04.72 Enterocolitis due to Clostridium difficile, not specified as recurrent; I12.0 Hypertensive chronic kidney disease with stage 5 chronic kidney disease or end stage renal disease; D62 Acute posthemorrhagic anemia; N17.9 Acute kidney failure, unspecified; I69.351 Hemiplegia and hemiparesis following cerebral infarction affecting right dominant side; D63.1 Anemia in chronic kidney disease; E11.42 Type 2 diabetes mellitus with diabetic polyneuropathy; E11.51 Type 2 diabetes mellitus with diabetic peripheral angiopathy without gangrene; E11.22 Type 2 diabetes mellitus with diabetic chronic kidney disease; E11.65 Type 2 diabetes mellitus with hyperglycemia; I48.91 Unspecified atrial fibrillation; Z99.2 Dependence on renal dialysis; Z91.15 Patient's noncompliance with renal dialysis; L97.522 Non-pressure chronic ulcer of other part of left foot with fat layer exposed; E11.621 Type 2 diabetes mellitus with foot ulcer; Z79.4 Long term (current) use of insulin; E78.5 Hyperlipidemia, unspecified; I25.10 Atherosclerotic heart disease of native coronary artery without angina pectoris; E87.5 Hyperkalemia; K29.70 Gastritis, unspecified, without bleeding; G47.33 Obstructive sleep apnea (adult) (pediatric); Z66 Do not resuscitate; K21.00 Gastro-esophageal reflux disease with esophagitis, without bleeding; Z79.82 Long term (current) use of aspirin; Z79.02 Long term (current) use of antithrombotics/antiplatelets; Z79.899 Other long term (current) drug therapy
CPT/HCPCS: 36415; 71045; 80048; 80069; 82274; 82784; 82785; 82962; 83605; 84484; 85025; 85610; 85652; 85730; 86140; 86225; 86235; 86256; 87040; 87426; 87493; 88305; 88313; 88341; 88342; 90937; 93005; 93306; 94002; 94640; 94762; 97162; 97166; 97802; 99285; J7050; A4216; G0257; J0610; J0696; J1610; J1940; J2405; Q5106

== ENCOUNTER → 2021-07-11 | Outpatient (REF) | payer MEDICARE, MEDICAID, SELFPAY ==
[2021-07-11 07:36] LABS: Absolute Lymphocyte Count 1.48 X10^3/uL (0.83-4.51); Absolute Neutrophil Count 3.2 X10^3/uL (2.0-7.7); Basophil# 0.04 X10^3/uL; Basophil% 0.7 % (0-1); Eosinophil# 0.12 X10^3/uL; Eosinophils% 2.2 % (0-5); Hematocrit 29.1 % (37-47); Hemoglobin 9.4 g/dL (12.0-15.0); Lymphocyte # 1.48 X10^3/ul (0.83-4.51); Lymphocyte % 27.6 % (19-41); Mean Corp Hgb Conc 32.3 g/dL (32-36); Mean Corpuscular Hgb 28.1 pg (27.0-32.0); Mean Corpuscular Volume 86.9 fL (81-99); Mean Platelet Vol. 9.1 fl (6.2-12.0); Monocyte% 9.3 % (0-10); NRBC Flagged by Analyzer 0 % (0-5); Neutrophil # 3.22 X10^3/uL (2.7-7.7); Platelet Count 259 K/mm3 (150-450); RBC Distribution Width SD 53.1 fl (35.1-43.9); Red Blood Count 3.35 M/mm3 (4.2-5.4); White Blood Count 5.4 K/mm3 (4.4-11.0)
[2021-07-11 07:48] LABS: Anion Gap 9 (5-15); BUN 48 mg/dL (7-18); BUN/Creat Ratio 8.3 RATIO (10-20); Calcium,Total 9.1 mg/dL (8.5-10.1); Chloride 99 mmol/L (98-107); Creatinine, Serum 5.77 mg/dL (0.55-1.02); EST Glomerular Filtration Rate 8 mL/min (>60); Est Glom Filt Rate - Afr Amer 9 mL/min (>60); Glucose 86 mg/dL (74-106); Potassium 4.1 mmol/L (3.5-5.1); Sodium Level 135 mmol/L (136-145)
[2021-07-14 22:21] LABS: KEPPRA (LEVETIRACETAM) 17.3 ug/mL (10.0-40.0)
== END | disposition home or self-care (01) ==
LOC: OLS.SW1020 05:00
PROVIDERS: PCP Family Medicine; Visit Provider Family Medicine
DX: N18.6 End stage renal disease (principal); E46 Unspecified protein-calorie malnutrition; G40.89 Other seizures; E87.5 Hyperkalemia
CPT/HCPCS: 36415; 80048; 80177; 85025

== ENCOUNTER → 2021-07-18 | Outpatient (REF) | payer MEDICARE, MEDICAID, SELFPAY ==
[2021-07-18 07:34] LABS: Absolute Lymphocyte Count 2.08 X10^3/uL (0.83-4.51); Absolute Neutrophil Count 2.6 X10^3/uL (2.0-7.7); Basophil# 0.05 X10^3/uL; Eosinophil# 0.05 X10^3/uL; Hematocrit 33.5 % (37-47); Hemoglobin 10.9 g/dL (12.0-15.0); Lymphocyte # 2.08 X10^3/ul (0.83-4.51); Lymphocyte % 39.5 % (19-41); Mean Corp Hgb Conc 32.5 g/dL (32-36); Mean Corpuscular Hgb 28.2 pg (27.0-32.0); Mean Corpuscular Volume 86.8 fL (81-99); Monocyte# 0.43 X10^3/uL; Monocyte% 8.2 % (0-10); NRBC Flagged by Analyzer 0 % (0-5); Neutrophil # 2.64 X10^3/uL (2.7-7.7); Neutrophil % 50.1 % (47-70); Platelet Count 223 K/mm3 (150-450); RBC Distribution Width CV 16.7 % (11.6-14.6); RBC Distribution Width SD 52.5 fl (35.1-43.9); Red Blood Count 3.86 M/mm3 (4.2-5.4); White Blood Count 5.3 K/mm3 (4.4-11.0)
[2021-07-18 07:52] LABS: Anion Gap 15 (5-15); BUN 107 mg/dL (7-18); BUN/Creat Ratio 10.2 RATIO (10-20); Calcium,Total 9.7 mg/dL (8.5-10.1); Chloride 98 mmol/L (98-107); EST Glomerular Filtration Rate 4 mL/min (>60); Est Glom Filt Rate - Afr Amer 5 mL/min (>60); Glucose 86 mg/dL (74-106); Potassium 4.8 mmol/L (3.5-5.1); Sodium Level 136 mmol/L (136-145)
== END | disposition home or self-care (01) ==
LOC: OLS.SW1020 05:00
PROVIDERS: PCP Family Medicine; Visit Provider Family Medicine
DX: E11.22 Type 2 diabetes mellitus with diabetic chronic kidney disease (principal); N18.6 End stage renal disease; Z79.899 Other long term (current) drug therapy
CPT/HCPCS: 36415; 80048; 80177; 85025

== ENCOUNTER → 2021-07-19 | Outpatient (REF) | payer MEDICARE, MEDICAID, SELFPAY | END | disposition home or self-care (01) | LOC: OLS.SW1020 06:00 | PROVIDERS: PCP Family Medicine; Visit Provider Family Medicine | DX: R19.7 Diarrhea, unspecified (principal) | CPT/HCPCS: 87493 ==

== ENCOUNTER → 2021-07-25 | Outpatient (REF) | payer MEDICARE, MEDICAID, SELFPAY ==
[2021-07-25 08:59] LABS: Absolute Lymphocyte Count 1.93 X10^3/uL (0.83-4.51); Absolute Neutrophil Count 2.5 X10^3/uL (2.0-7.7); Basophil# 0.06 X10^3/uL; Basophil% 1.2 % (0-1); Eosinophil# 0.08 X10^3/uL; Eosinophils% 1.6 % (0-5); Hematocrit 34.5 % (37-47); Hemoglobin 11.2 g/dL (12.0-15.0); Lymphocyte # 1.93 X10^3/ul (0.83-4.51); Lymphocyte % 38.4 % (19-41); Mean Corp Hgb Conc 32.5 g/dL (32-36); Mean Corpuscular Hgb 28.1 pg (27.0-32.0); Mean Corpuscular Volume 86.5 fL (81-99); Mean Platelet Vol. 10.8 fl (6.2-12.0); Monocyte# 0.45 X10^3/uL; NRBC Flagged by Analyzer 0 % (0-5); Neutrophil % 49.8 % (47-70); Platelet Count 247 K/mm3 (150-450); RBC Distribution Width CV 16.7 % (11.6-14.6); RBC Distribution Width SD 52.4 fl (35.1-43.9); Red Blood Count 3.99 M/mm3 (4.2-5.4)
[2021-07-25 09:25] LABS: Anion Gap 21 (5-15); BUN 101 mg/dL (7-18); BUN/Creat Ratio 8.2 RATIO (10-20); Calcium,Total 9.4 mg/dL (8.5-10.1); Chloride 98 mmol/L (98-107); EST Glomerular Filtration Rate 3 mL/min (>60); Est Glom Filt Rate - Afr Amer 4 mL/min (>60); Glucose 61 mg/dL (74-106); Potassium 3.1 mmol/L (3.5-5.1); Sodium Level 137 mmol/L (136-145)
[2021-07-28 20:11] LABS: KEPPRA (LEVETIRACETAM) 17.2 ug/mL (10.0-40.0)
== END | disposition home or self-care (01) ==
LOC: OLS.SW1020 04:00
PROVIDERS: PCP Family Medicine; Referring Provider Family Medicine; Visit Provider Family Medicine
DX: E11.9 Type 2 diabetes mellitus without complications (principal); E46 Unspecified protein-calorie malnutrition; Z99.2 Dependence on renal dialysis; G40.89 Other seizures; E87.5 Hyperkalemia
CPT/HCPCS: 36415; 80048; 80177; 85025

== ENCOUNTER → 2021-08-01 | Outpatient (REF) | payer MEDICARE, MEDICAID, SELFPAY ==
[2021-08-01 08:26] LABS: Absolute Lymphocyte Count 2.32 X10^3/uL (0.83-4.51); Absolute Neutrophil Count 3.2 X10^3/uL (2.0-7.7); Basophil# 0.04 X10^3/uL; Basophil% 0.6 % (0-1); Eosinophil# 0.08 X10^3/uL; Eosinophils% 1.3 % (0-5); Hematocrit 31.8 % (37-47); Hemoglobin 10.6 g/dL (12.0-15.0); Lymphocyte # 2.32 X10^3/ul (0.83-4.51); Lymphocyte % 37.6 % (19-41); Mean Corp Hgb Conc 33.3 g/dL (32-36); Mean Corpuscular Hgb 28.1 pg (27.0-32.0); Mean Corpuscular Volume 84.4 fL (81-99); Monocyte# 0.55 X10^3/uL; Monocyte% 8.9 % (0-10); NRBC Flagged by Analyzer 0 % (0-5); Neutrophil # 3.17 X10^3/uL (2.7-7.7); Neutrophil % 51.4 % (47-70); Platelet Count 233 K/mm3 (150-450); RBC Distribution Width CV 16.2 % (11.6-14.6); RBC Distribution Width SD 49.6 fl (35.1-43.9); Red Blood Count 3.77 M/mm3 (4.2-5.4); White Blood Count 6.2 K/mm3 (4.4-11.0)
[2021-08-01 10:25] LABS: Anion Gap 18 (5-15); BUN 82 mg/dL (7-18); BUN/Creat Ratio 7.4 RATIO (10-20); Chloride 98 mmol/L (98-107); EST Glomerular Filtration Rate 4 mL/min (>60); Est Glom Filt Rate - Afr Amer 4 mL/min (>60); Glucose 76 mg/dL (74-106); Potassium 2.2 mmol/L (3.5-5.1); Sodium Level 137 mmol/L (136-145)
== END | disposition home or self-care (01) ==
LOC: OLS.SW1020 04:00
PROVIDERS: PCP Family Medicine; Visit Provider Family Medicine
DX: E87.5 Hyperkalemia (principal); N18.6 End stage renal disease; Z79.899 Other long term (current) drug therapy
CPT/HCPCS: 36415; 80048; 80177; 85025

== ENCOUNTER → 2021-08-08 | Outpatient (REF) | payer MEDICARE, MEDICAID, SELFPAY ==
[2021-08-08 08:08] LABS: Absolute Lymphocyte Count 2.18 X10^3/uL (0.83-4.51); Absolute Neutrophil Count 2.1 X10^3/uL (2.0-7.7); Basophil# 0.04 X10^3/uL; Basophil% 0.8 % (0-1); Eosinophil# 0.06 X10^3/uL; Eosinophils% 1.3 % (0-5); Hematocrit 33.2 % (37-47); Lymphocyte # 2.18 X10^3/ul (0.83-4.51); Lymphocyte % 45.5 % (19-41); Mean Corp Hgb Conc 33.1 g/dL (32-36); Mean Corpuscular Hgb 27.8 pg (27.0-32.0); Mean Corpuscular Volume 84.1 fL (81-99); Mean Platelet Vol. 10.5 fl (6.2-12.0); Monocyte# 0.45 X10^3/uL; Monocyte% 9.4 % (0-10); NRBC Flagged by Analyzer 0 % (0-5); Neutrophil # 2.05 X10^3/uL (2.7-7.7); Neutrophil % 42.8 % (47-70); Platelet Count 183 K/mm3 (150-450); RBC Distribution Width CV 16.7 % (11.6-14.6); RBC Distribution Width SD 51.7 fl (35.1-43.9); Red Blood Count 3.95 M/mm3 (4.2-5.4); White Blood Count 4.8 K/mm3 (4.4-11.0)
[2021-08-08 08:56] LABS: Anion Gap 22 (5-15); BUN 123 mg/dL (7-18); BUN/Creat Ratio 8.2 RATIO (10-20); Chloride 101 mmol/L (98-107); EST Glomerular Filtration Rate 3 mL/min (>60); Est Glom Filt Rate - Afr Amer 3 mL/min (>60); Glucose 82 mg/dL (74-106); Potassium 2.8 mmol/L (3.5-5.1); Sodium Level 141 mmol/L (136-145)
[2021-08-13 16:51] LABS: KEPPRA (LEVETIRACETAM) 29.5 ug/mL (10.0-40.0)
== END | disposition home or self-care (01) ==
LOC: OLS.SW1020 05:45
PROVIDERS: PCP Family Medicine; Visit Provider Family Medicine
DX: E03.9 Hypothyroidism, unspecified (principal); E87.5 Hyperkalemia; Z79.899 Other long term (current) drug therapy
CPT/HCPCS: 36415; 80048; 80177; 85025

== ENCOUNTER → 2021-08-15 | Outpatient (REF) | payer MEDICARE, MEDICAID, SELFPAY ==
[2021-08-15 08:11] LABS: POSITIVE MORPHOLOGY YES
[2021-08-15 08:13] LABS: Absolute Lymphocyte Count 1.83 X10^3/uL (0.83-4.51); Absolute Neutrophil Count 2.3 X10^3/uL (2.0-7.7); Basophil# 0.04 X10^3/uL; Basophil% 0.9 % (0-1); Eosinophil# 0.11 X10^3/uL; Eosinophils% 2.4 % (0-5); Hematocrit 27.3 % (37-47); Lymphocyte # 1.83 X10^3/ul (0.83-4.51); Lymphocyte % 39.2 % (19-41); Mean Corpuscular Hgb 27.9 pg (27.0-32.0); Mean Corpuscular Volume 84.5 fL (81-99); Mean Platelet Vol. 10.9 fl (6.2-12.0); Monocyte# 0.39 X10^3/uL; Monocyte% 8.4 % (0-10); NRBC Flagged by Analyzer 0 % (0-5); Neutrophil # 2.28 X10^3/uL (2.7-7.7); Neutrophil % 48.7 % (47-70); Platelet Count 131 K/mm3 (150-450); RBC Distribution Width SD 55.3 fl (35.1-43.9); Red Blood Count 3.23 M/mm3 (4.2-5.4); White Blood Count 4.7 K/mm3 (4.4-11.0)
[2021-08-15 08:37] LABS: Anion Gap 23 (5-15); BUN 141 mg/dL (7-18); BUN/Creat Ratio 8.4 RATIO (10-20); Calcium,Total 9.9 mg/dL (8.5-10.1); Chloride 100 mmol/L (98-107); EST Glomerular Filtration Rate 2 mL/min (>60); Est Glom Filt Rate - Afr Amer 3 mL/min (>60); Glucose 98 mg/dL (74-106); Potassium 3.3 mmol/L (3.5-5.1); Sodium Level 140 mmol/L (136-145)
[2021-08-23 19:23] LABS: KEPPRA (LEVETIRACETAM) 7.6 ug/mL (10.0-40.0)
== END | disposition home or self-care (01) ==
LOC: OLS.SW1020 05:00
PROVIDERS: PCP Family Medicine; Visit Provider Family Medicine
DX: E11.22 Type 2 diabetes mellitus with diabetic chronic kidney disease (principal); N18.6 End stage renal disease; Z79.899 Other long term (current) drug therapy
CPT/HCPCS: 36415; 80048; 80177; 85025

== ENCOUNTER → 2021-08-22 | Outpatient (REF) | payer MEDICARE, MEDICAID, SELFPAY ==
[2021-08-22 08:32] LABS: Absolute Lymphocyte Count 1.52 X10^3/uL (0.83-4.51); Absolute Neutrophil Count 2.9 X10^3/uL (2.0-7.7); Basophil# 0.03 X10^3/uL; Basophil% 0.6 % (0-1); Eosinophil# 0.06 X10^3/uL; Eosinophils% 1.2 % (0-5); Hematocrit 29.9 % (37-47); Hemoglobin 9.6 g/dL (12.0-15.0); Lymphocyte # 1.52 X10^3/ul (0.83-4.51); Lymphocyte % 31.3 % (19-41); Mean Corp Hgb Conc 32.1 g/dL (32-36); Mean Corpuscular Hgb 27.7 pg (27.0-32.0); Mean Corpuscular Volume 86.2 fL (81-99); Mean Platelet Vol. 10.9 fl (6.2-12.0); Monocyte# 0.34 X10^3/uL; NRBC Flagged by Analyzer 0 % (0-5); Neutrophil # 2.89 X10^3/uL (2.7-7.7); Neutrophil % 59.7 % (47-70); Platelet Count 138 K/mm3 (150-450); RBC Distribution Width CV 18.7 % (11.6-14.6); RBC Distribution Width SD 57.7 fl (35.1-43.9); Red Blood Count 3.47 M/mm3 (4.2-5.4); White Blood Count 4.9 K/mm3 (4.4-11.0)
[2021-08-22 11:00] LABS: Anion Gap 25 (5-15); BUN 175 mg/dL (7-18); BUN/Creat Ratio 9.5 RATIO (10-20); Calcium,Total 10.5 mg/dL (8.5-10.1); Chloride 103 mmol/L (98-107); EST Glomerular Filtration Rate 2 mL/min (>60); Est Glom Filt Rate - Afr Amer 3 mL/min (>60); Glucose 93 mg/dL (74-106); Potassium 4.6 mmol/L (3.5-5.1); Sodium Level 143 mmol/L (136-145)
[2021-09-07 17:26] LABS: KEPPRA (LEVETIRACETAM) <1.0 ug/mL (10.0-40.0)
== END | disposition home or self-care (01) ==
LOC: OLS.SW1020 05:00
PROVIDERS: PCP Family Medicine; Visit Provider Family Medicine
DX: I10 Essential (primary) hypertension (principal); E11.9 Type 2 diabetes mellitus without complications
CPT/HCPCS: 36415; 80048; 80177; 85025